=== PATIENT | female | born 1965 | race Caucasian/White ===

== ENCOUNTER 2016-11-12 13:07 | Inpatient (IN) | payer OTHER ==
[2016-11-12 14:01] LABS: MANUAL DIFF NEEDED? NO
--- NOTE | 2016-11-12 14:16 | ED EKG INTERP ---
EKG Interpretation - EKG Time of EKG reading by physician:: 13:40 EKG Read and Signed by:: Sam Adan EKG Interpretation (*Must complete 3 of following elements*): Abnormal ( biatrial enlargement) Rate: 93 Rhythm: nsr [place]: normal [place] Interval: normal Attestation - Scribe Verification/Attestation Scribe:: Elise Barakat Acting as Scribe for:: Sam Adan Scribe documention review:: This chart was documented by a scribe and accurately reflects the service the provider performed and the decisions made by the provider.
[2016-11-12 14:20] LABS: BASO% 0.3 % (0.0-0.8); EOS# 0.21 X1000 (0.0-0.7); EOS% 1.9 % (0.0-10.0); HEMATOCRIT 44.5 % (37.0-47.0); HEMOGLOBIN 14.3 g/dL (12.0-16.0); LYMPH# 2.16 X1000 (1.2-3.4); LYMPH% 19.3 % (20.5-51.1); MCH 30.4 PG (27-31); MCHC 32.1 g/dL (33-37); MCV 94.7 FL (81-99); MONO# 0.71 X1000 (0.11-0.59); MONO% 6.4 % (1.7-9.3); MPV 9.8 FL (7.4-10.4); NEUT% 72.1 % (42.2-75.2); PLT 374 X1000 (130-400)
[2016-11-12 14:30] LABS: AGAP 11; ALKALINE PHOSPHATASE 88 U/L (32-104); BUN 14 mg/dL (8-22); CALCIUM 8.8 mg/dL (8.8-10.2); CHLORIDE 103 mmol/L (98-107); CK PROFILE 68 U/L (24-173); COSMO 281; GOT 15 U/L (10-30); GPT 21 U/L (10-36); MAGNESIUM 1.8 mg/dL (1.5-2.7); SODIUM 141 mmol/L (136-145); TCO2 27 mmol/L (25-35); TOTAL BILIRUBIN 0.37 mg/dL (0.20-1.00); TOTAL PROTEIN 7.4 g/dL (6.3-8.3)
--- NOTE | 2016-11-12 14:35 | Diag Imaging Result Document ---
PROCEDURE NAME: CHEST-2 VIEWS - 11/12/2016 FRONTAL AND LATERAL CHEST, 2 VIEWS: FINDINGS: The lungs are well expanded. The heart is not enlarged. The vessels are not distended. No pneumonia. No pleural effusions. No free air beneath the diaphragm. IMPRESSION: No acute abnormality.
--- NOTE | 2016-11-12 14:51 | EKG Report ---
Test Performed on : 11/12/2016 1:40:38 PM Test Reason : ALL Blood Pressure : / mmHG Vent. Rate : 093 BPM Atrial Rate : 093 BPM P-R Int : 156 ms QRS Dur : 080 ms QT Int : 368 ms P-R-T Axes : 061 071 038 degrees QTc Int : 457 ms Normal sinus rhythm. Biatrial enlargement Abnormal ECG No previous ECGs available Unconfirmed Result
[2016-11-12 15:09] LABS: INR 0.98; PTT 25.7 Seconds (22.0-36.0)
[2016-11-12] MEDS ORDERED: ASPIRIN PO ONE (15:43)
[2016-11-12] MEDS ORDERED: NITROGLYCERIN SL PRN (15:44)
--- NOTE | 2016-11-12 15:51 | PROVIDER DOCUMENTATION ---
HPI-Chest Pain <Elise Barakat - Last Filed: 11/12/16 17:07> <Pietro Balderas - Last Filed: 11/12/16 17:42> - General Chief Complaint: Chest Pain Stated Complaint: CP Time Seen by Provider: 11/12/16 15:41 Allergies/Adverse Reactions: Patient Allergies Allergy/AdvReac Type Severity Reaction Status Date / Time ketorolac tromethamine * Allergy NAUSEA/VOMI Verified 11/12/16 15:49 [From Toradol] TING morphine Allergy NAUSEA/VOMI Verified 11/12/16 15:49 TING ondansetron HCl * Allergy NAUSEA/VOMI Verified 11/12/16 15:49 [From Zofran (as TING hydrochloride)] Sulfa (Sulfonamide Allergy yellowing Verified 11/12/16 15:49 Antibiotics) of eyes and skin Home Medications: Home Medication List Medication Instructions Recorded Confirmed Last Taken Type Naproxen 500 mg PO BID PRN PRN #30 tablet 08/15/16 11/12/16 10/05/16 Rx Methocarbamol [Robaxin] 500 mg PO BID #30 tablet 10/05/16 11/12/16 Unknown Rx Duloxetine [Cymbalta] 30 mg PO DAILY 11/12/16 11/12/16 Unknown History - History of Present Illness-CP Nature of Presenting Problem: This pt presents to the ED with c/o left sided chest pain and neck pain that is "cramping". She reports it started about 12 pm when she was sitting on her couch and lasted about 30 minutes. Denies any SOB with this episode. (Pietro Balderas) Review of Systems - Adult - REVIEW OF SYSTEMS - ADULT Constitutional: denies: chills, fever, fatique Eyes: reports: no symptoms reported Ears, Nose, Mouth & Throat: denies: ear pain, sinus problem, throat pain Cardiovascular: reports: chest pain. denies: irregular heart rate, orthopnea, syncope Respiratory: denies: cough, shortness of breath, wheezing Gastrointestinal: denies: abdominal pain, diarrhea, nausea, vomiting Genitourinary: reports: no symptoms reported Musculoskeletal: reports: no symptoms reported Integumentary: reports: no symptoms reported Neurological: reports: no symptoms reported Psychiatric: reports: no symptoms reported Endocrine: reports: no symptoms reported Hematologic/Lymphatic: reports: no symptoms reported Allergic/Immunologic: reports: no symptoms reported All Other Systems: Reviewed and Negative <Elise Barakat - Last Filed: 11/12/16 17:07> Past History - Adult - PAST MEDICAL HISTORY-ADULT Review of Records: reports: Nursing Assessment Review, Medications Reviewed Cardiovascular: reports: hyperlipidemia Endocrine/Immune: reports: Diabetes - PRIOR SURGERIES/PROCEDURES Surgical/Procedure History: reports: appendectomy, cholecystectomy, hysterectomy , tonsillectomy - IMMUNIZATION STATUS Childhood Immunizations: See Nurse Assessment Flu Vaccine: See Nurse Assessment - SOCIAL HISTORY Smoking: less than 1 pack/day Provider spent 3-5 mins advising pt. on dangers of tobacco.: Discussed manners to quit use, and f/u contacts for add'l counseling. Substance Use: none/never <Elise Barakat - Last Filed: 11/12/16 17:07> - PAST MEDICAL HISTORY-ADULT Major Childhood Illnesses: reports: denies history Cardiovascular: reports: denies history Respiratory: reports: denies history Gastrointestinal: reports: denies history Obstetrical/Gynecological: reports: denies history Genitourinary: reports: denies history Musculoskeletal: reports: denies history Neurological: reports: denies history Endocrine/Immune: reports: denies history Other Conditions: reports: denies history - PRIOR SURGERIES/PROCEDURES Surgical/Procedure History: reports: appendectomy, cholecystectomy, tonsillectomy - IMMUNIZATION STATUS Childhood Immunizations: See Nurse Assessment Flu Vaccine: See Nurse Assessment - FAMILY HISTORY Family History: reviewed, not pertinent <Pietro Balderas - Last Filed: 11/12/16 17:42> Physical Exam-General - PHYSICAL EXAM-ADULT Initial Vital Signs Reviewed: Yes - CONSTITUTIONAL General Appearance: appears well, alert, no apparent distress - EYES Eyes: PERRL/EOMI - HEAD, EARS, NOSE, MOUTH & THROAT HENMT: moist mucous membranes, normal ENT inspection, TMs normal, pharynx normal - RESPIRATORY Respiratory: chest non-tender (nonreproducable pain), lungs clear, normal breath sounds, no pleuratic chest pain, no respiratory distress - CARDIOVASCULAR Cardiovascular: regular rate, rhythm, no edema, no gallop, no JVD, no murmur - GASTROINTESTINAL (ABDOMEN) Abdominal Exam: normal bowel sounds, non tender, soft, no organomegaly, no pulsatile mass - MUSCULOSKELETAL Extremity: normal range of motion, non-tender - SKIN Integumentary: normal color, normal turgor, warm/dry - PSYCHIATRIC Psych/Mental Status: normal mood/affect, normal thought content, normal thought process, oriented x 3 <Elise Barakat - Last Filed: 11/12/16 17:07> Progress <Elise Barakat - Last Filed: 11/12/16 17:07> - XRAY 1 XRAY Study: Chest XRAY Interpretation: nad - CONSULTS/PCP/HOSPITALIST Notification #1 *Consult/PCP/Hospitalist*: Dr. Sarabia Time Discussed: 17:42 Consult Disposition: Admit <AndreyPietro - Last Filed: 11/12/16 17:42> - PLAN OF CARE/RESULTS Progress/Plan/Lab Results: Orders Category Date Time Status CHEST-2 VIEWS [RAD] Stat Exams 11/12/16 13:44 Completed CBC WITH ELECTRONIC DIFF [HEME] Stat Lab 11/12/16 13:49 Completed CK PROFILE [SP CHEM] Stat Lab 11/12/16 13:49 Completed CK PROFILE [SP CHEM] Stat Lab 11/12/16 16:06 Received COMPREHENSIVE METABOLIC PANEL [CHEM] Stat Lab 11/12/16 13:49 Completed D-DIMER [CHEM] Stat Lab 11/12/16 13:49 Completed MAGNESIUM [CHEM] Stat Lab 11/12/16 13:49 Completed PRO B-NATRIURETIC PEPTIDE Stat Lab 11/12/16 13:49 Completed PROTIME WITH INR [COAG] Stat Lab 11/12/16 13:49 Completed PTT [COAG] Stat Lab 11/12/16 13:49 Completed TROPONIN T Stat Lab 11/12/16 13:49 Completed TROPONIN T Stat Lab 11/12/16 16:06 Received Aspirin Med 11/12/16 15:43 Discontinued 325 mg PO NOW ONE Nitroglycerin Sl [Nitroglycerin] Med 11/12/16 15:44 Active 0.4 mg SL Q5M PRN PRN EKG [EKG] Stat Ther 11/12/16 13:44 Draft EKG [EKG] Stat Ther 11/12/16 15:43 Ordered Vital Signs - 24 hr 11/12/16 13:42 Temperature 98.4 F Pulse Rate 90 Respiratory 20 Rate Blood Pressure 123/81 O2 Sat by Pulse 100 Oximetry Laboratory Tests 11/12/16 11/12/16 11/12/16 13:49 13:49 13:49 WBC 11.17 H RBC 4.70 Hgb 14.3 Hct 44.5 MCV 94.7 MCH 30.4 MCHC 32.1 L RDW Std Deviation 15.0 H Plt Count 374 MPV 9.8 Neut % (Auto) 72.1 Lymph % (Auto) 19.3 L [place] % (Auto) 6.4 Eos % (Auto) 1.9 Baso % (Auto) 0.3 Neut # (Auto) 8.06 H Lymph # (Auto) 2.16 [place] # (Auto) 0.71 H Eos # (Auto) 0.21 Baso # (Auto) 0.03 PT INR PTT (Actin FS) D-Dimer 0.43 Sodium 141 Potassium 4.0 Chloride 103 Carbon Dioxide 27 Anion Gap 11 BUN 14 Creatinine 0.8 Estimated GFR/1.73 m2 > 60 BUN/Creatinine Ratio 18 Glucose 93 Calculated Osmolality 281 Calcium 8.8 Magnesium 1.8 Total Bilirubin 0.37 AST 15 ALT 21 Alkaline Phosphatase 88 Creatine Kinase 68 Troponin T Sfz-P-Gcrylgtuqrr Pept Total Protein 7.4 Albumin 4.0 Globulin 3.4 Albumin/Globulin Ratio 1.2 11/12/16 11/12/16 11/12/16 13:49 13:49 13:49 WBC RBC Hgb Hct MCV MCH MCHC RDW Std Deviation Plt Count MPV Neut % (Auto) Lymph % (Auto) [place] % (Auto) Eos % (Auto) Baso % (Auto) Neut # (Auto) Lymph # (Auto) [place] # (Auto) Eos # (Auto) Baso # (Auto) PT 10.0 INR 0.98 PTT (Actin FS) 25.7 D-Dimer Sodium Potassium Chloride Carbon Dioxide Anion Gap BUN Creatinine Estimated GFR/1.73 m2 BUN/Creatinine Ratio Glucose Calculated Osmolality Calcium Magnesium Total Bilirubin AST ALT Alkaline Phosphatase Creatine Kinase Troponin T < 0.010 Gju-S-Pxhzngczxyi Pept 91 Total Protein Albumin Globulin Albumin/Globulin Ratio Laboratory Tests 11/12/16 11/12/16 11/12/16 13:49 13:49 13:49 WBC 11.17 H RBC 4.70 Hgb 14.3 Hct 44.5 MCV 94.7 MCH 30.4 MCHC 32.1 L RDW Std Deviation 15.0 H Plt Count 374 MPV 9.8 Neut % (Auto) 72.1 Lymph % (Auto) 19.3 L [place] % (Auto) 6.4 Eos % (Auto) 1.9 Baso % (Auto) 0.3 Neut # (Auto) 8.06 H Lymph # (Auto) 2.16 [place] # (Auto) 0.71 H Eos # (Auto) 0.21 Baso # (Auto) 0.03 PT INR PTT (Actin FS) D-Dimer 0.43 Sodium 141 Potassium 4.0 Chloride 103 Carbon Dioxide 27 Anion Gap 11 BUN 14 Creatinine 0.8 Estimated GFR/1.73 m2 > 60 BUN/Creatinine Ratio 18 Glucose 93 Calculated Osmolality 281 Calcium 8.8 Magnesium 1.8 Total Bilirubin 0.37 AST 15 ALT 21 Alkaline Phosphatase 88 Creatine Kinase 68 Troponin T Xih-E-Gdniatbsoid Pept Total Protein 7.4 Albumin 4.0 Globulin 3.4 Albumin/Globulin Ratio 1.2 11/12/16 11/12/16 11/12/16 13:49 13:49 13:49 WBC RBC Hgb Hct MCV MCH MCHC RDW Std Deviation Plt Count MPV Neut % (Auto) Lymph % (Auto) [place] % (Auto) Eos % (Auto) Baso % (Auto) Neut # (Auto) Lymph # (Auto) [place] # (Auto) Eos # (Auto) Baso # (Auto) PT 10.0 INR 0.98 PTT (Actin FS) 25.7 D-Dimer Sodium Potassium Chloride Carbon Dioxide Anion Gap BUN Creatinine Estimated GFR/1.73 m2 BUN/Creatinine Ratio Glucose Calculated Osmolality Calcium Magnesium Total Bilirubin AST ALT Alkaline Phosphatase Creatine Kinase Troponin T < 0.010 Owg-M-Ilwdswjpsbv Pept 91 Total Protein Albumin Globulin Albumin/Globulin Ratio 11/12/16 11/12/16 16:06 16:06 WBC RBC Hgb Hct MCV MCH MCHC RDW Std Deviation Plt Count MPV Neut % (Auto) Lymph % (Auto) [place] % (Auto) Eos % (Auto) Baso % (Auto) Neut # (Auto) Lymph # (Auto) [place] # (Auto) Eos # (Auto) Baso # (Auto) PT INR PTT (Actin FS) D-Dimer Sodium Potassium Chloride Carbon Dioxide Anion Gap BUN Creatinine Estimated GFR/1.73 m2 BUN/Creatinine Ratio Glucose Calculated Osmolality Calcium Magnesium Total Bilirubin AST ALT Alkaline Phosphatase Creatine Kinase 65 Troponin T < 0.010 Gku-D-Ibhkwlasaah Pept Total Protein Albumin Globulin Albumin/Globulin Ratio (Elise Barakat) Laboratory Tests 11/12/16 11/12/1617 13:49 13:49 13:49 WBC 11.17 H RBC 4.70 Hgb 14.3 Hct 44.5 MCV 94.7 MCH 30.4 MCHC 32.1 L RDW Std Deviation 15.0 H Plt Count 374 MPV 9.8 Neut % (Auto) 72.1 Lymph % (Auto) 19.3 L [place] % (Auto) 6.4 Eos % (Auto) 1.9 Baso % (Auto) 0.3 Neut # (Auto) 8.06 H Lymph # (Auto) 2.16 [place] # (Auto) 0.71 H Eos # (Auto) 0.21 Baso # (Auto) 0.03 PT INR PTT (Actin FS) D-Dimer 0.43 Sodium 141 Potassium 4.0 Chloride 103 Carbon Dioxide 27 Anion Gap 11 BUN 14 Creatinine 0.8 Estimated GFR/1.73 m2 > 60 BUN/Creatinine Ratio 18 Glucose 93 Calculated Osmolality 281 Calcium 8.8 Magnesium 1.8 Total Bilirubin 0.37 AST 15 ALT 21 Alkaline Phosphatase 88 Creatine Kinase 68 Troponin T Ase-C-Lpeklxjfjib Pept Total Protein 7.4 Albumin 4.0 Globulin 3.4 Albumin/Globulin Ratio 1.2 11/12/16 11/12/16 11/12/16 13:49 13:49 13:49 WBC RBC Hgb Hct MCV MCH MCHC RDW Std Deviation Plt Count MPV Neut % (Auto) Lymph % (Auto) [place] % (Auto) Eos % (Auto) Baso % (Auto) Neut # (Auto) Lymph # (Auto) [place] # (Auto) Eos # (Auto) Baso # (Auto) PT 10.0 INR 0.98 PTT (Actin FS) 25.7 D-Dimer Sodium Potassium Chloride Carbon Dioxide Anion Gap BUN Creatinine Estimated GFR/1.73 m2 BUN/Creatinine Ratio Glucose Calculated Osmolality Calcium Magnesium Total Bilirubin AST ALT Alkaline Phosphatase Creatine Kinase Troponin T < 0.010 Gub-D-Hwqkwijduqz Pept 91 Total Protein Albumin Globulin Albumin/Globulin Ratio 11/12/16 11/12/16 16:06 16:06 WBC RBC Hgb Hct MCV MCH MCHC RDW Std Deviation Plt Count MPV Neut % (Auto) Lymph % (Auto) [place] % (Auto) Eos % (Auto) Baso % (Auto) Neut # (Auto) Lymph # (Auto) [place] # (Auto) Eos # (Auto) Baso # (Auto) PT INR PTT (Actin FS) D-Dimer Sodium Potassium Chloride Carbon Dioxide Anion Gap BUN Creatinine Estimated GFR/1.73 m2 BUN/Creatinine Ratio Glucose Calculated Osmolality Calcium Magnesium Total Bilirubin AST ALT Alkaline Phosphatase Creatine Kinase 65 Troponin T < 0.010 Mvk-G-Pycghhtcykm Pept Total Protein Albumin Globulin Albumin/Globulin Ratio Orders Category Date Time Status CHEST-2 VIEWS [RAD] Stat Exams 11/12/16 13:44 Completed CBC WITH ELECTRONIC DIFF [HEME] Stat Lab 11/12/16 13:49 Completed CK PROFILE [SP CHEM] Stat Lab 11/12/16 13:49 Completed CK PROFILE [SP CHEM] Stat Lab 11/12/16 16:06 Completed COMPREHENSIVE METABOLIC PANEL [CHEM] Stat Lab 11/12/16 13:49 Completed D-DIMER [CHEM] Stat Lab 11/12/16 13:49 Completed MAGNESIUM [CHEM] Stat Lab 11/12/16 13:49 Completed PRO B-NATRIURETIC PEPTIDE Stat Lab 11/12/16 13:49 Completed PROTIME WITH INR [COAG] Stat Lab 11/12/16 13:49 Completed PTT [COAG] Stat Lab 11/12/16 13:49 Completed TROPONIN T Stat Lab 11/12/16 13:49 Completed TROPONIN T Stat Lab 11/12/16 16:06 Completed Aspirin Med 11/12/16 15:43 Discontinued 325 mg PO NOW ONE Nitroglycerin Sl [Nitroglycerin] Med 11/12/16 15:44 Active 0.4 mg SL Q5M PRN PRN EKG [EKG] Stat Ther 11/12/16 13:44 Draft EKG [EKG] Stat Ther 11/12/16 15:43 Ordered Vital Signs Temp Pulse Resp BP Pulse Ox 11/12/16 17:26 90 16 127/84 95 11/12/16 13:42 98.4 F 90 20 123/81 100 ketorolac tromethamine * [From Toradol] Allergy (Verified 11/12/16 15:49) NAUSEA/VOMITING morphine Allergy (Verified 11/12/16 15:49) NAUSEA/VOMITING ondansetron HCl * [From Zofran (as hydrochloride)] Allergy (Verified 11/12/16 15 :49) NAUSEA/VOMITING Sulfa (Sulfonamide Antibiotics) Allergy (Verified 11/12/16 15:49) yellowing of eyes and skin Naproxen 500 mg PO BID PRN PRN #30 tablet 08/15/16 Methocarbamol [Robaxin] 500 mg PO BID #30 tablet 10/05/16 Duloxetine [Cymbalta] 30 mg PO DAILY 11/12/16 Laboratory 11/12/16 11/12/16 11/12/16 16:06 16:06 13:49 WBC RBC Hgb Hct MCV MCH MCHC RDW Std Deviation Plt Count MPV Neut % (Auto) Lymph % (Auto) [place] % (Auto) Eos % (Auto) Baso % (Auto) Neut # (Auto) Lymph # (Auto) [place] # (Auto) Eos # (Auto) Baso # (Auto) PT INR PTT (Actin FS) D-Dimer Sodium Potassium Chloride Carbon Dioxide Anion Gap BUN Creatinine Estimated GFR/1.73 m2 BUN/Creatinine Ratio Glucose Calculated Osmolality Calcium Magnesium Total Bilirubin AST ALT Alkaline Phosphatase Creatine Kinase 65 Troponin T < 0.010 < 0.010 Fsw-O-Azxvuamtydq Pept Total Protein Albumin Globulin Albumin/Globulin Ratio 11/12/16 11/12/16 11/12/16 13:49 13:49 13:49 WBC RBC Hgb Hct MCV MCH MCHC RDW Std Deviation Plt Count MPV Neut % (Auto) Lymph % (Auto) [place] % (Auto) Eos % (Auto) Baso % (Auto) Neut # (Auto) Lymph # (Auto) [place] # (Auto) Eos # (Auto) Baso # (Auto) PT 10.0 INR 0.98 PTT (Actin FS) 25.7 D-Dimer 0.43 Sodium Potassium Chloride Carbon Dioxide Anion Gap BUN Creatinine Estimated GFR/1.73 m2 BUN/Creatinine Ratio Glucose Calculated Osmolality Calcium Magnesium Total Bilirubin AST ALT Alkaline Phosphatase Creatine Kinase Troponin T Hwn-O-Lrpwxeurzah Pept 91 Total Protein Albumin Globulin Albumin/Globulin Ratio 11/12/16 11/12/16 13:49 13:49 WBC 11.17 H RBC 4.70 Hgb 14.3 Hct 44.5 MCV 94.7 MCH 30.4 MCHC 32.1 L RDW Std Deviation 15.0 H Plt Count 374 MPV 9.8 Neut % (Auto) 72.1 Lymph % (Auto) 19.3 L [place] % (Auto) 6.4 Eos % (Auto) 1.9 Baso % (Auto) 0.3 Neut # (Auto) 8.06 H Lymph # (Auto) 2.16 [place] # (Auto) 0.71 H Eos # (Auto) 0.21 Baso # (Auto) 0.03 PT INR PTT (Actin FS) D-Dimer Sodium 141 Potassium 4.0 Chloride 103 Carbon Dioxide 27 Anion Gap 11 BUN 14 Creatinine 0.8 Estimated GFR/1.73 m2 > 60 BUN/Creatinine Ratio 18 Glucose 93 Calculated Osmolality 281 Calcium 8.8 Magnesium 1.8 Total Bilirubin 0.37 AST 15 ALT 21 Alkaline Phosphatase 88 Creatine Kinase 68 Troponin T Ino-S-Qisdxadvmmw Pept Total Protein 7.4 Albumin 4.0 Globulin 3.4 Albumin/Globulin Ratio 1.2 Pt's pain has improved but is still having some dull pain. Wild admit to hospitalist service for cp r/o. (Pietro Balderas) Departure <Elise Barakat - Last Filed: 11/12/16 17:07> - Departure Time of Disposition Order: 17:42 Certified Medical Emergency: Emergent <Pietro Balderas - Last Filed: 11/12/16 17:42> - Departure DIAGNOSIS: Chest pain at rest Disposition: ADMITTED INPATIENT 09 Condition: Stable Attestation - Scribe Verification/Attestation Scribe:: Elise Barakat Acting as Scribe for:: Pietro Balderas Scribe documention review:: This chart was documented by a scribe and accurately reflects the service the provider performed and the decisions made by the provider. <Elise Barakat - Last Filed: 11/12/16 17:07> - Physician/ LOI Attestation Patient care was provided by Advanced Practice Provider:: Yes Advanced Practice Provider:: Pietro Balderas Advanced Practice Provider documentation review:: The Mid-level provider documentation, treatment plan and medical decision making was reviewed by the physician who agrees with all treatment and medical decision making by the MLP. <Pietro Balderas - Last Filed: 11/12/16 17:42> Physician Attestation
--- NOTE | 2016-11-12 16:19 | ED EKG INTERP ---
EKG Interpretation - EKG Time of EKG reading by physician:: 15:57 EKG Read and Signed by:: Sam Adan EKG Interpretation (*Must complete 3 of following elements*): Abnormal ( biatrial enlargement) Rate: 89 Rhythm: nsr [place]: normal Attestation - Scribe Verification/Attestation Scribe:: Elise Barakat Acting as Scribe for:: Sam Adan Scribe documention review:: This chart was documented by a scribe and accurately reflects the service the provider performed and the decisions made by the provider.
[2016-11-12] MEDS ORDERED: NORCO-5 PO ONE (18:00)
[2016-11-12] MEDS ORDERED: PHENERGAN PO ONE (18:00)
[2016-11-12] MEDS ORDERED: ZOFRAN IV PRN (18:41)
[2016-11-12] MEDS ORDERED: NORCO-7.5 PO PRN (18:41)
--- NOTE | 2016-11-12 19:44 | HISTORY AND PHYSICAL ---
PRIMARY CARE PHYSICIAN: Dr. Carolina. PRESENTING COMPLAINT: Chest pain. HISTORY OF PRESENTING COMPLAINT: Ms. Perea is a 51-year-old, female with a history of diabetes, hypertension, dyslipidemia and 34-nnux-xhyw history of smoking. She presented with an acute onset of chest pain since this morning at about 11: 48. According to Ms. Perea, she was playing at home with her grandkids just lying down and she just felt this sharp pain coming down under her left breast squeezing in nature and posteriorly had her left arm numb. That went on for about 20 minutes and it subsided. She called her family members who decided to bring her to the emergency department. Upon presentation patient was evaluated. Initial blood pressure was 123/81 which is documented. Other vitals were normal. We were consulted to evaluate patient because of chest pain. PAST MEDICAL HISTORY: 1. Diabetes mellitus. 2. Hypertension. 3. Suspected sleep apnea. 4. Dyslipidemia. FAMILY HISTORY: Positive for strokes in mother and diabetes. ALLERGIES: Ketorolac, morphine and ondansetron. PAST SURGICAL HISTORY: 1. Cholecystectomy. 2. Multiple lithotripsies. 3. Hysterectomy with bilateral oophorectomy. 4. Appendectomy. 5. Multiple knee surgeries. SOCIAL HISTORY: The patient is and lives with her here in [place]. She has 4 kids. She drinks occasionally but has a 31-qrcr-xpdn history, but for the past 1 year she has been smoking just about half-pack a day. REVIEW OF SYSTEMS: A 14 point review of system conducted with the patient is negative. Specifically patient denies any shortness of breath. No vomiting. No epigastric pain. No abdominal pain. No diarrhea. No urine symptoms. No cough. PHYSICAL EXAMINATION: VITAL SIGNS: Blood pressure 127/84, pulse of 90, respiration is 14, temperature is 98.4 degrees. GENERAL: Ms. Perea is a 51-year-old, female. She is in bed. She is morbidly obese with BMI of 45.9. She was not in any cardiopulmonary distress. HEENT: Mucosa was pink and moist. Anicteric. Acyanotic. Head is normocephalic and atraumatic. NECK: Supple, slightly short and thick, but no JVD. CHEST: Good air entry bilateral. There is no crepitations, no rhonchi and no accessory muscle use. CARDIOVASCULAR: Regular rate and rhythm. No murmurs, no rubs, no gallops. ABDOMEN: Soft, nontender, it is distended. Bowel sounds are present. No hepatosplenomegaly. EXTREMITIES: No pedal edema. Distal pulses were present. CENTRAL NERVOUS SYSTEM: Patient is alert, oriented x4. Executive function seems to be intact. Power is 5/5 in upper and lower extremities. Bilateral sensation is intact. Cranial nerves 2-12 have been grossly examined and are unremarkable. PSYCHIATRIC: Patient is very cooperative and has very good insight and judgment. LABORATORY DATA: WBC is 11.17, hemoglobin is 14.3, platelet count of 375,000. Chemistry: Sodium is 141, potassium 4.0, chloride is 103, bicarbonate is 27, glucose is 93. Troponins 2 times have been negative. Chest x-ray done shows no acute abnormality. EKG showed normal sinus rhythm, some biatrial enlargement but no acute ST- segment abnormalities and no obvious T-wave abnormalities. ASSESSMENT: Ms. Perea is a 51-year-old, very obese, female with multiple comorbidities who presented with acute onset of chest pain. She is going to be admitted for further cardiac stratification. 1. Chest pain of acute onset. With the risk factors involved it sounds like this could potentially be unstable angina (acute coronary syndrome). We will, therefore , admit the patient in [facility], trend troponins, repeat the EKG for tomorrow morning, start the patient on aspirin, statin, low-dose beta merlyn if the blood pressure tolerates, Lovenox for anticoagulation, do an echocardiogram and consult cardiology for further cardiac risk stratification. 2. Tobacco abuse. Patient has more than a 69-xdwm-ukbs history. She has been counseled. 3. Morbid obesity. BMI of 45.9 noted. Patient has been advised. 4. Severe bilateral osteoarthritis status post multiple orthopedic interventions. 5. Diabetes mellitus. 6. Dyslipidemia. 7. Suspicion for obstructive sleep apnea. PLAN: 1. Patient seems to be stable. We are going to admit her to [facility] and institute unstable angina protocol, consult Cardiology, trend her troponins, repeat an EKG, do an echo tomorrow morning and we will give further recommendations during the hospital course. 2. The patient refers to snore hard during sleep . We are going to put her on BiPAP p.r.n. at night and she has been advised to follow up with a billboard poster helper after discharge for sleep studies and adequate evaluation. MTDD
[2016-11-12] MEDS ORDERED: DILAUDID IV PRN (19:59)
[2016-11-12] MEDS: LIPITOR PO SCH (20:18)
[2016-11-12] MEDS: COREG PO SCH (20:18)
[2016-11-12] MEDS ORDERED: LOVENOX SUBQ SCH (22:30)
[2016-11-13] MEDS ORDERED: PNEUMOVAX 23 IM ONE (01:10)
[2016-11-13 05:45] LABS: MANUAL DIFF NEEDED? NO
[2016-11-13 05:53] LABS: BASO% 0.5 % (0.0-0.8); EOS# 0.28 X1000 (0.0-0.7); EOS% 2.8 % (0.0-10.0); HEMATOCRIT 43.4 % (37.0-47.0); HEMOGLOBIN 13.8 g/dL (12.0-16.0); IMM GRAN# 0.03 X1000 (0.0-0.04); IMM GRAN% 0.3 % (0.0-0.5); LYMPH# 2.22 X1000 (1.2-3.4); LYMPH% 22.4 % (20.5-51.1); MCH 30.2 PG (27-31); MCHC 31.8 g/dL (33-37); MONO# 0.66 X1000 (0.11-0.59); MONO% 6.7 % (1.7-9.3); MPV 9.9 FL (7.4-10.4); NEUT% 67.3 % (42.2-75.2); PLT 343 X1000 (130-400); RBC 4.57 XMIL (4.2-5.4)
[2016-11-13 06:01] LABS: INR 1.01; PROTIME 10.3 Seconds (9.2-11.7)
[2016-11-13 06:23] LABS: AGAP 14; ALBUMIN 3.9 g/dL (3.5-5.0); ALKALINE PHOSPHATASE 85 U/L (32-104); BUN 17 mg/dL (8-22); CALCIUM 9.4 mg/dL (8.8-10.2); CHLORIDE 101 mmol/L (98-107); COSMO 285; GOT 18 U/L (10-30); GPT 25 U/L (10-36); MAGNESIUM 1.8 mg/dL (1.5-2.7); POTASSIUM 4.4 mmol/L (3.5-5.1); SODIUM 142 mmol/L (136-145); TCO2 27 mmol/L (25-35); TOTAL PROTEIN 6.4 g/dL (6.3-8.3)
[2016-11-13] MEDS ORDERED: PRILOSEC PO SCH (07:00)
[2016-11-13 08:07] VITALS: BP 96/58
--- NOTE | 2016-11-13 08:45 | Diag Imaging Result Document ---
PROCEDURE NAME: CHEST-PORTABLE - 11/13/2016 PORTABLE CHEST: COMPARISON: 11/12/2016. FINDINGS: Heart size is within normal limits. There is slight prominence of central vascular markings. There is no consolidation, substantial pleural effusion, or pneumothorax identified. IMPRESSION: Slight prominence of central vascular markings.
[2016-11-13] MEDS: COREG PO SCH (08:46)
[2016-11-13] MEDS: LIPITOR PO SCH (08:46)
[2016-11-13] MEDS ORDERED: CYMBALTA PO SCH (09:00)
[2016-11-13] MEDS ORDERED: VITAMIN D PO SCH (09:30)
[2016-11-13] MEDS ORDERED: SYNTHROID PO SCH (09:30)
--- NOTE | 2016-11-13 13:48 | PROGRESS NOTE ---
DATE: 11/13/2016 Today Ms. Perea referred to be doing relatively fine. According to her, the chest pain has significantly improved overnight. Did have some headaches after she got a dose of morphine. OBJECTIVE: Vital signs: Blood pressure is 96/58, pulse went down to 50 but currently on the monitor it is about 94. Respirations 20, temperature 98.3 degrees. General: Ms. Perea is a 51- year-old female. She is in bed, not in any distress. Mucosa is pink and moist. Anicteric. Acyanotic. Neck: Supple. Chest: Good air entry bilateral. No crepitations. No rhonchi. Cardiovascular: Regular rate and rhythm. No murmurs, no rubs. No gallops. Abdomen: Soft, nontender. There is an old infraumbilical surgical scar. Extremities: No pedal edema. SPORTS COORDINATOR: Patient is alert and oriented x4. There is no focal neurological deficit. LABORATORY DATA: CBC is reviewed. Completely unremarkable. Chemistry is also reviewed, completely normal. TSH is 32.46 which is very abnormal and C. reactive high sensitivity is 1.8 which is high. ASSESSMENT: 1. Chest pain of acute onset, possible unstable angina. The pain is remarkably better. Tele monitoring has not shown any abnormality and troponins 3 times have been completely normal. Patient continues to be on aspirin, statin, beta merlyn, and anticoagulation and we still pending. Echocardiogram and cardiology evaluation. Patient has high sensitivity CRP elevated which in the context of all the risk factors that she has makes her at least a moderate to high risk for coronary artery disease and will be pending cardiology evaluation. 2. Tobacco abuse. Patient has been counseled. 3. Morbid obesity. 4. Suspicion of obstructive sleep apnea. Patient will be using a CPAP at night and will follow up with a electric hoist operator when discharged. 5. Hypothyroidism with very elevated TSH consistent with inadequate thyroid supplementation. According to the patient she was actually on 112 of levothyroxine about a year ago but because of insurance issues and financial constraints, she was not able to follow with her physician and she just started taking 25 mcg of levothyroxine about a month ago. We are going to increase the levothyroxine to 100 mcg daily and patient has been advised to repeat the TSH in about 2 weeks with his PCP. 6. Restless leg syndrome noted.
--- NOTE | 2016-11-15 10:57 | EKG Report ---
Test Performed on : 11/12/2016 3:57:40 PM Test Reason : repeat Blood Pressure : / mmHG Vent. Rate : 089 BPM Atrial Rate : 089 BPM P-R Int : 152 ms QRS Dur : 080 ms QT Int : 378 ms P-R-T Axes : 061 072 045 degrees QTc Int : 459 ms Normal sinus rhythm. Biatrial enlargement Abnormal ECG When compared with ECG of 12-NOV-2016 13:40, (Unconfirmed) No significant change was found Unconfirmed Result
== END 2016-11-13 10:30 | disposition left against medical advice (07) | DRG 311 ==
LOC: ED 13:07 → 3S 19:37
PROVIDERS: ATTEND Internal Medicine
DX: I20.0 Unstable angina (principal); Z68.42 Body mass index [BMI] 45.0-49.9, adult; I10 Essential (primary) hypertension; E66.01 Morbid (severe) obesity due to excess calories; E11.9 Type 2 diabetes mellitus without complications; E78.5 Hyperlipidemia, unspecified; E03.9 Hypothyroidism, unspecified; G25.81 Restless legs syndrome; G47.33 Obstructive sleep apnea (adult) (pediatric); M19.90 Unspecified osteoarthritis, unspecified site; F17.210 Nicotine dependence, cigarettes, uncomplicated; Z79.899 Other long term (current) drug therapy; Z79.84 Long term (current) use of oral hypoglycemic drugs; Z82.3 Family history of stroke; Z83.3 Family history of diabetes mellitus
CPT/HCPCS: 36415; 71010; 71020; 80053; 82550; 82948; 83735; 83880; 84443; 84484; 85025; 85379; 85610; 85730; 86141; 93005; 94761; 99285; J1170; J1650

== ENCOUNTER 2016-12-01 23:47 | Observation (INO) ==
[2016-12-02] MEDS ORDERED: NS 1,000 ML IV ONE ×2 (00:42→03:06)
[2016-12-02] MEDS ORDERED: ZOFRAN IV ONE (00:42)
--- NOTE | 2016-12-02 00:42 | PROVIDER DOCUMENTATION ---
[id number] Abuse/Overdose - General Source: patient - History of Present Illness-Drug/Alcohol Psychiatric Complaints: reports: suicidal ideation Any injuries associated with this episode of intoxication?: No Similar Symptoms Previously?: No Recently seen or treated by another doctor?: No <Brandi Alvarado - Last Filed: 12/02/16 02:25> <Mykel George I - Last Filed: 12/02/16 02:27> - General Chief Complaint: Overdose Stated Complaint: overdose on buspar Time Seen by Provider: 12/02/16 00:25 Allergies/Adverse Reactions: Allergies Allergy/AdvReac Type Severity Reaction Status Date / Time ketorolac tromethamine * Allergy NAUSEA/VOMI Verified 12/02/16 01:45 [From Toradol] TING morphine Allergy NAUSEA/VOMI Verified 12/02/16 01:45 TING ondansetron HCl * Allergy NAUSEA/VOMI Verified 12/02/16 01:45 [From Zofran (as TING hydrochloride)] Sulfa (Sulfonamide Allergy yellowing Verified 12/02/16 01:45 Antibiotics) of eyes and skin Home Medications: Home Medication List Medication Instructions Recorded Confirmed Last Taken Type Methocarbamol [Robaxin] 500 mg PO BID #30 tablet 10/05/16 12/02/16 12/01/16 08: 00 Rx Duloxetine [Cymbalta] 30 mg PO QAM 11/12/16 12/02/16 12/01/16 History ATORVAstatin [Lipitor] 1 tab PO QHS 11/13/16 12/02/16 12/01/16 History Buspirone [Buspar] 7.5 mg PO BID 11/13/16 12/02/16 12/01/16 History Ergocalciferol (Vitamin D2) 50,000 units PO Q7D 11/13/16 12/02/16 10/30/16 History [Vitamin D2] 5,0000 Units Levothyroxine [Synthroid] 50 mcg PO QAM 11/13/16 12/02/16 12/01/16 08:00 History Metformin [Glucophage] 1 tab PO DAILY 11/13/16 12/02/16 12/01/16 History Ropinirole [Requip] 1 mg PO TID 11/13/16 12/02/16 12/01/16 08:00 History Dexbrompheniramin/Phenylephrin 1 each PO Q6HR 12/02/16 12/02/16 Unknown History [Ala-Hist PE Tablet] Diclofenac Sodium 75 mg PO BID 12/02/16 12/02/16 Unknown History Gabapentin 300 mg PO TID 12/02/16 12/02/16 12/01/16 08:00 History - History of Present Illness-Drug/Alcohol Nature of Presenting Problem: 51 year old F presents to the ED with a cc of an overdose. PT states "I am just tired of being hurt. My left me for an old lady. I don't want to be here anymore." PT states that she took between 30-90 7.5 mg of Buspar. (Brandi Alvarado) Review of Systems - Adult - REVIEW OF SYSTEMS - ADULT Constitutional: reports: no symptoms reported Eyes: reports: no symptoms reported Ears, Nose, Mouth & Throat: reports: no symptoms reported Cardiovascular: reports: no symptoms reported Respiratory: reports: no symptoms reported Gastrointestinal: reports: no symptoms reported Genitourinary: reports: no symptoms reported Musculoskeletal: denies: muscle aches, muscle weakness Integumentary: denies: skin sores/ulcer, skin thickening Neurological: reports: no symptoms reported Psychiatric: reports: suicidal thoughts. denies: depression Endocrine: reports: no symptoms reported Hematologic/Lymphatic: reports: no symptoms reported Allergic/Immunologic: reports: no symptoms reported All Other Systems: Reviewed and Negative <Brandi Alvarado - Last Filed: 12/02/16 02:25> Past History - Adult - PAST MEDICAL HISTORY-ADULT Review of Records: reports: Nursing Assessment Review, Medications Reviewed Major Childhood Illnesses: reports: denies history Cardiovascular: reports: denies history Respiratory: reports: denies history Gastrointestinal: reports: denies history Obstetrical/Gynecological: reports: denies history Genitourinary: reports: denies history Musculoskeletal: reports: denies history Neurological: reports: denies history Endocrine/Immune: reports: denies history Other Conditions: reports: denies history - PRIOR SURGERIES/PROCEDURES Surgical/Procedure History: reports: appendectomy, cholecystectomy, tonsillectomy - IMMUNIZATION STATUS Childhood Immunizations: See Nurse Assessment Flu Vaccine: See Nurse Assessment - FAMILY HISTORY Family History: reviewed, not pertinent - SOCIAL HISTORY Smoking: cigarettes Provider spent 3-5 mins advising pt. on dangers of tobacco.: Discussed manners to quit use, and f/u contacts for add'l counseling. Substance Use: none/never Alcohol Use Frequency: rarely <Brandi Alvarado - Last Filed: 12/02/16 02:25> Physical Exam-General - CONSTITUTIONAL General Appearance: lethargic - RESPIRATORY Respiratory: chest non-tender, lungs clear, normal breath sounds - CARDIOVASCULAR Cardiovascular: normal peripheral pulses, regular rate, rhythm, no edema - MUSCULOSKELETAL Extremity: normal inspection - SKIN Integumentary: normal color, normal turgor, warm/dry - PSYCHIATRIC Psych/Mental Status: other (lethargic) <ChristianoBrandi - Last Filed: 12/02/16 02:25> Progress - EKG 1 Time of EKG reading by physician:: 00:10 EKG Read and Signed by:: Mykel George EKG Interpretation (*Must complete 3 of following elements*): Abnormal Rate: 102 Rhythm: sinus tachycardia Napoleon: normal Comments: bilateral enlargement - CONSULTS/PCP/HOSPITALIST Notification #1 *Consult/PCP/Hospitalist*: Dr. Solis(hospitalist) Time Discussed: 02:25 Consult Disposition: Will see in ED, Admit <ChristinaoBrandi echeverria - Last Filed: 12/02/16 02:25> Departure <ChristianoBrandi - Last Filed: 12/02/16 02:25> - Departure Time of Disposition Order: 02:27 Certified Medical Emergency: Emergent <Mykel George I - Last Filed: 12/02/16 02:27> - Departure DIAGNOSIS: Overdose, Suicide attempt by drug ingestion Disposition: ADMITTED INPATIENT 09 Condition: Stable Attestation - Scribe Verification/Attestation Scribe:: Brandi Alvarado Acting as Scribe for:: Mykel George Scribe documention review:: This chart was documented by a scribe and accurately reflects the service the provider performed and the decisions made by the provider. <Brandi Alvarado - Last Filed: 12/02/16 02:25> Physician Attestation
[2016-12-02 01:08] LABS: UR AMPHETAMINES QUAL NONE DETECTED (NONE DETECT); UR BARBITUATES QUAL NONE DETECTED (NONE DETECT); UR BENZODIAZEPIN QUAL NONE DETECTED (NONE DETECT); UR CANNABINOIDS QUAL NONE DETECTED (NONE DETECT); UR COCAINE QUAL NONE DETECTED (NONE DETECT); UR METHADONE QUAL NONE DETECTED (NONE DETECT); UR OPIATES QUAL NONE DETECTED (NONE DETECT); UR OXYCODONE QUAL NONE DETECTED (NONE DETECT); UR PCP QUAL NONE DETECTED (NONE DETECT)
[2016-12-02 01:22] LABS: BASO% 0.1 % (0.0-0.8); EOS% 1.1 % (0.0-10.0); HEMATOCRIT 43.9 % (37.0-47.0); HEMOGLOBIN 14.4 g/dL (12.0-16.0); IMM GRAN# 0.03 X1000 (0.0-0.04); IMM GRAN% 0.3 % (0.0-0.5); LYMPH% 6.5 % (20.5-51.1); MANUAL DIFF NEEDED? NO; MCH 30.6 PG (27-31); MCHC 32.8 g/dL (33-37); MCV 93.2 FL (81-99); MONO# 0.37 X1000 (0.11-0.59); MPV 9.8 FL (7.4-10.4); PLT 272 X1000 (130-400); RBC 4.71 XMIL (4.2-5.4)
[2016-12-02 01:23] LABS: ACETAMINOPHEN < 1.2 ug/mL (10-30); AGAP 17; ALKALINE PHOSPHATASE 131 U/L (32-104); BUN 24 mg/dL (8-22); CHLORIDE 100 mmol/L (98-107); COSMO 283; GOT 49 U/L (10-30); GPT 60 U/L (10-36); POTASSIUM 3.8 mmol/L (3.5-5.1); SODIUM 139 mmol/L (136-145); TCO2 22 mmol/L (25-35); TOTAL BILIRUBIN 0.64 mg/dL (0.20-1.00)
[2016-12-02] MEDS ORDERED: ZOFRAN IV PRN (03:14)
[2016-12-02 03:36] LABS: HEMOGLOBIN A1C 5.6 % (4.8-6.0)
[2016-12-02] MEDS ORDERED: LOVENOX SUBQ SCH (04:00)
[2016-12-02] MEDS: NS 1,000 ML IV SCH ×2 (05:06→13:56)
--- NOTE | 2016-12-02 05:25 | EKG Report ---
Test Performed on : 12/02/2016 00:10:23 AM Test Reason : overdose Blood Pressure : / mmHG Vent. Rate : 102 BPM Atrial Rate : 102 BPM P-R Int : 162 ms QRS Dur : 082 ms QT Int : 356 ms P-R-T Axes : 059 083 045 degrees QTc Int : 463 ms Sinus tachycardia. Biatrial enlargement Abnormal ECG When compared with ECG of 12-NOV-2016 15:57, No significant change was found Unconfirmed Result
[2016-12-02] MEDS: HUMALOG SUBQ SCH ×2 (07:00→18:14)
[2016-12-02 08:15] LABS: INR 1.02; PROTIME 10.7 Seconds (9.2-11.7)
[2016-12-02] MEDS: NEURONTIN PO SCH ×3 (09:24→18:22)
--- NOTE | 2016-12-02 09:33 | HISTORY AND PHYSICAL ---
DATE AND TIME OF HISTORY AND PHYSICAL: 12/02/2016 at 0345. CHIEF COMPLAINT: Overdosed/suicide attempt. HISTORY OF PRESENT ILLNESS: Ms. Perea is a 51-year-old female who presented to the E.R. [facility] with an attempted suicide with an overdose of BuSpar. The patient reportedly took between thirty and ninety 7.5 mg tablets. The patient reports that she does have a history of depression and has previously been treated at [facility] for this. She also reports that she previously has had thoughts of suicide by taking pills though has not had any previous attempts. The patient states that she took the pills tonight trying to hurt herself stating that "I am done and I do not want to hurt any more". She reports that her and her have recently been having relationship problems and that he has recently moved out of the house and is now dating an older woman. Her daughter states that she thinks she took the medication at around 10:30 on 12/01/2016. Upon evaluation in the E.R. the patient is drowsy though is arousable with verbal stimulation. She was alert and oriented to person and place though not time. She was able to recognize her daughter at the bedside and state her full name for us. The E.R. Staff did contact poison control who gave recommendations of symptomatic care, urine drug screen, CBC, liver function tests, PT, INR, and to initiate seizure precautions. The patient does have family members of her daughter who lives across the street and are able to help her if she needs it. She currently does live with her son. Her daughter reports that the patient has been disabled for a few years now though could not give me a clear reason other than she suffers from depression. The patient reports that other than being depressed and upset about her relationship issues that she has no other complaints. She denies any headache, dizziness, shortness of breath, chest pain , abdominal pain, nausea, vomiting, diarrhea, or constipation. She denies any bloody or black stools. She denies any fever, body aches, chills, cough, dysuria, urinary frequency, or pain, numbness, or tingling in the extremities. She denies a history of DVTs or pulmonary embolisms. At this time we will admit the patient to the ICU for further treatment and evaluation. REVIEW OF SYSTEMS: A 14 point review of systems was conducted with the patient and all were negative except for pertinent positives mentioned above in the HPI. PAST MEDICAL HISTORY: 1. Diabetes mellitus type 2. 2. Hypertension. 3. Suspected sleep apnea. 4. Dyslipidemia. 5. Hypothyroidism. PAST SURGICAL HISTORY: 1. Appendectomy. 2. Cholecystectomy. 3. Hysterectomy. 4. Tonsillectomy. 5. Bilateral carpal tunnel surgery. 6. Multiple right knee surgeries. FAMILY HISTORY: Positive for strokes in her mother and diabetes. SOCIAL HISTORY: The patient was previously though is now having relationship issues with her who has moved out and according to the patient is now dating an older woman. She has 4 children. She does drink occasionally though denies any illicit drug use. She does report smoking a pack a cigarettes a day and has done so for several years. ALLERGIES: The patient reports allergies to Toradol, morphine, and Zofran. HOME MEDICATIONS: 1. Requip 1 mg p.o. t.i.d.. 2. Robaxin 500 mg p.o. b.i.d.. 3. Metformin one tablet p.o. daily. 4. Synthroid 50 mcg p.o. every a.m.. 5. Vitamin D2 50,000 units p.o. every 7 days. 6. Cymbalta 30 mg p.o. every a.m.. 7. Diclofenac sodium 75 mg p.o. b.i.d.. 8. BuSpar 7.5 mg p.o. b.i.d.. 9. Lipitor one tablet p.o. at bedtime. 10.Gabapentin 300 mg p.o. t.i.d. 11. zyrtec PE tablet one each p.o. every 6 hours p.r.n.. DIAGNOSTIC DATA/LABORATORY RESULTS: White blood cell count is 9.2, hemoglobin 14.4, hematocrit 43.9, and platelet count 272. Sodium is 139, potassium 3.8, chloride 100, bicarb 22, BUN 24, creatinine 1.1, GFR 52, glucose 120, hemoglobin A1c 5.6, calcium 9, total bilirubin 0.64, AST 49, ALT 60, and alkaline phosphatase 131. Urine drug screen was negative. Serum alcohol was zero. Salicylate level was less than 3. Acetaminophen level was less than 1.2. PENDING DIAGNOSTIC STUDIES AT THIS TIME: EKG and PT with INR. PHYSICAL EXAMINATION: VITAL SIGNS: Temperature is 98.3, heart rate 101, respirations 18, and blood pressure 133/83. Oxygen saturation is 95% on room air. GENERAL: Ms. Perea is a pleasant 51-year-old female who was resting in the E.R. stretcher. She was in no acute distress. The patient was drowsy though was easily arousable to verbal stimuli and once awoken she was alert and oriented to person and place though not time. HEENT: The head is atraumatic, normocephalic. Pupils are equal, round, and reactive to light. They were 3 mm bilaterally and brisk. Oral mucosa is moist. Oropharynx is clear. NECK: Supple. Trachea is midline. CARDIOVASCULAR: The patient has normal S1, S2. No murmurs, gallops, or rubs appreciated with a regular rate and rhythm. PULMONARY: The patient has symmetrical chest expansion bilaterally. Lungs sounds are clear to auscultation in bilateral full agee. ABDOMEN: Soft, nontender, and does not appear to be distended though the patient has a protuberant abdomen noted. Bowel sounds are present in all four quadrants and normoactive. EXTREMITIES: No cyanosis, clubbing, or edema noted. Pulse, motor, and sensory were intact in all extremities as well. Pedal pulses were 3+ bilaterally. INTEGUMENTARY: The patient's skin is pink, warm, dry, and intact. No lesions or sores noted. NEUROLOGICAL: The patient is as mentioned above drowsy though easily arousable with verbal stimuli. Once awoken she is alert and oriented to person and place but not time. Cranial nerves 2 through 12 appear to be grossly intact. ASSESSMENT AND PLAN: 1. Suicidal ideation. For this we will continue with care for her overdose though once the patient is medically cleared we will obtain a psychiatric evaluation. Until that time the patient will be placed on suicide precautions. We will do neuro checks every 4 hours. We will removal all harmful items from the patient's room and will monitor her closely. 2. Drug overdose. For this we will monitor the patient's liver function tests as well as renal function. We will monitor her for seizure precautions. She will have vital signs every hour per Intensive Care Unit protocol. We will do neuro checks. We will monitor for aspiration precautions as well as seizure precautions. She will be n.p.o. at this time. We will do continuous pulse oximetry and will continue to follow. 3. Fluid volume depletion. For this we will continue with normal saline at 150 mL/hr. The patient did previously receive a 2 L normal saline bolus in the Emergency Room. 4. Acute kidney injury. This is likely secondary to fluid volume depletion. We will continue to follow and continue with fluid resuscitation as mentioned above. 5. Elevated liver function tests. This could likely be related to the ingestion of BuSpar. We will continue to monitor her liver function and we have ordered a hepatitis profile and will continue to follow. 6. Diabetes mellitus type 2. We will do fingersticks before meals and at bedtime and continue with Lispro low dose sliding scale insulin and continue to follow. The patient was placed in the ICU with telemetry. We will continue to monitor her closely as well as her cardiovascular and respiratory status. Further orders and recommendations pending hospital course, diagnostic studies, and physician evaluation. TOTAL CRITICAL CARE TIME: Approximately 40 minutes. Dictated by MARYCARMEN Hwang for Darell Solis MD Seen and examined patient and discussed plan of care with JAVIER WEBER
--- NOTE | 2016-12-02 13:07 | EKG Report ---
Test Performed on : 12/02/2016 12:45:10 PM Test Reason : CHEST PAIN Blood Pressure : / mmHG Vent. Rate : 089 BPM Atrial Rate : 089 BPM P-R Int : 158 ms QRS Dur : 080 ms QT Int : 378 ms P-R-T Axes : 061 073 053 degrees QTc Int : 459 ms Normal sinus rhythm. Biatrial enlargement Abnormal ECG When compared with ECG of 02-DEC-2016 08:24, (Unconfirmed) No significant change was found Confirmed by Megan MARTINEZ, Yanick Joshi ([id number]) on 12/02/2016 8:00:50 PM
--- NOTE | 2016-12-02 13:07 | EKG Report ---
Test Performed on : 12/02/2016 08:24:31 AM Test Reason : Overdose Blood Pressure : / mmHG Vent. Rate : 086 BPM Atrial Rate : 086 BPM P-R Int : 152 ms QRS Dur : 082 ms QT Int : 374 ms P-R-T Axes : 060 067 033 degrees QTc Int : 447 ms Normal sinus rhythm. Biatrial enlargement Abnormal ECG When compared with ECG of 02-DEC-2016 00:10, (Unconfirmed) No significant change was found Confirmed by Megan MARTINEZ, Yanick Joshi ([id number]) on 12/02/2016 8:00:40 PM
--- NOTE | 2016-12-02 13:34 | ED EKG INTERP ---
EKG Interpretation - EKG Time of EKG reading by physician:: 12:45 EKG Read and Signed by:: Shira Yuan EKG Interpretation (*Must complete 3 of following elements*): Abnormal Rate: 89 Rhythm: NSR Walker: normal QRS: normal SC Interval: normal ST Wave: normal Comments: biatrial enlargement Attestation - Scribe Verification/Attestation Scribe:: Kenan Ventura Acting as Scribe for:: Shira Yuan Scribe documention review:: This chart was documented by a scribe and accurately reflects the service the provider performed and the decisions made by the provider. Physician Attestation - Physician Attestation I, the provider, attest to the following statement:: Shira Yuan Physician documentation Attestation:: This documentation recorded by the scribe accurately reflects the service I personally performed and the decisions made by me.
[2016-12-02 16:54] VITALS: BP 142/88
[2016-12-02] MEDS ORDERED: STERILE WATER INJ. ONE (20:39)
[2016-12-02] MEDS ORDERED: GEODON ONE (20:39)
[2016-12-03 10:20] LABS: HEPATITIS PROFILE ACUTE SEE COMMENTS (())
--- NOTE | 2016-12-04 14:19 | DISCHARGE SUMMARY ---
ADMISSION DATE: 12/02/2016 DISCHARGE DATE: 12/02/2016 DISCHARGE DIAGNOSES: 1. Overdose suicide attempt. 2. Diabetes type 2. 3. Hypertension. 4. Obstructive sleep apnea. 5. Hyperlipidemia. 6. Obesity. 7. Hypothyroidism. DISCHARGE MEDICATION: None. HOSPITAL COURSE: The patient is a 51-year-old, female, admitted to the hospital after she took a whole bottle of her BuSpar because of the disagreement with her , soon to be ex- . The patient wanted to end it all because she stated that she did not want to go through a divorce and did not want to go through legal expenses. The patient admitted to our service. After a few hours she was still waking up. We treated the patient conservatively, and monitored her per Poison Control Center recommendations. The patient became awake and alert in the afternoon. We consulted [facility], who took the patient late in the evening when they had a bed open. She was medically stable for discharge. DISPOSITION: We sent the patient to [facility] for further psychiatric help. TIME SPENT: Total time discharging this patient is 35 minutes. cc: Diana Carolina MD
== END 2016-12-02 20:45 | disposition admitted as inpatient to this hospital (09) ==
LOC: EDBD → ED 23:47 → INTOOBSV 12-02 03:29 → EDIPHOLD 12-02 03:29 → ICU 12-02 17:14
PROVIDERS: ATTEND Internal Medicine

== ENCOUNTER 2018-09-19 21:42 | Inpatient (IN) ==
[2018-09-19 23:17] LABS: BASO# 0.02 X1000 (0.0-0.2); BASO% 0.2 % (0.0-0.8); EOS# 0.21 X1000 (0.0-0.7); EOS% 2.1 % (0.0-10.0); HEMATOCRIT 40.5 % (37.0-47.0); HEMOGLOBIN 12.1 g/dL (12.0-16.0); IMM GRAN# 0.04 X1000 (0.0-0.04); IMM GRAN% 0.4 % (0.0-0.5); LYMPH# 1.39 X1000 (1.2-3.4); LYMPH% 13.8 % (20.5-51.1); MCH 26.9 PG (27-31); MCHC 29.9 g/dL (33-37); MONO# 0.61 X1000 (0.11-0.59); MPV 9.5 FL (7.4-10.4); NEUT# 7.82 X1000 (1.4-6.5); NEUT% 77.5 % (42.2-75.2); PLT 379 X1000 (130-400); RDW 15.7 % (11.5-14.5); WBC 10.09 X1000 (4.8-10.8)
[2018-09-19 23:51] LABS: AGAP 12; ALB/GLOB RATIO 1.2; ALBUMIN 3.9 g/dL (3.5-5.0); ALKALINE PHOSPHATASE 91 U/L (32-104); BUN 11 mg/dL (8-22); CALCIUM 8.7 mg/dL (8.8-10.2); CHLORIDE 104 mmol/L (98-107); COSMO 294; CREATININE 0.8 mg/dL (0.5-0.9); ESTIMATED GFR > 60; GLUCOSE 106 mg/dL (70-104); GOT 10 U/L (10-30); GPT 11 U/L (10-36); POTASSIUM 3.8 mmol/L (3.5-5.1); SODIUM 148 mmol/L (136-145); TCO2 32 mmol/L (25-35); TOTAL BILIRUBIN 0.25 mg/dL (0.20-1.00); TOTAL PROTEIN 7.2 g/dL (6.3-8.3)
--- NOTE | 2018-09-19 23:55 | PROVIDER DOCUMENTATION ---
This chart was entered by Elisabeth Lopez Scribe, acting as scribe for King Salas MD. HPI-Respiratory General - General Chief Complaint: Shortness of Breath Stated Complaint: SOB Time Seen by Provider: 09/19/18 21:51 Source: patient Allergies/Adverse Reactions: Patient Allergies Allergy/AdvReac Type Severity Reaction Status Date / Time ketorolac tromethamine * Allergy NAUSEA/VOMI Verified 02/08/18 20:55 [From Toradol] TING ondansetron HCl * Allergy NAUSEA/VOMI Verified 02/08/18 20:55 [From Zofran (as TING hydrochloride)] Sulfa (Sulfonamide Allergy yellowing Verified 02/08/18 20:55 Antibiotics) of eyes and skin codeine AdvReac HEADACHE Verified 02/08/18 20:55 morphine AdvReac ITCHING Verified 02/08/18 20:55 Home Medications: Home Medication List Medication Instructions Recorded Confirmed Last Taken Type ATORVAstatin [Lipitor] 40 mg PO DAILY 04/28/17 08/01/18 07/31/18 20:00 History Aripiprazole 10 mg PO DAILY 04/28/17 08/01/18 07/31/18 08:00 History Bupropion HCl [Bupropion HCl Sr] 300 mg PO DAILY 04/28/17 08/01/18 07/31/18 08: 00 History Levothyroxine [Synthroid] 125 microgm PO DAILY 04/28/17 08/01/18 07/31/18 07:00 History Metformin [Glucophage] 500 mg PO DAILY 04/28/17 08/01/18 07/31/18 08:00 History Ropinirole [Requip] 1 tab PO TID 04/28/17 08/01/18 07/31/18 22:00 History Ergocalciferol (Vitamin D2) 50,000 unit PO Q7D 02/08/18 08/01/18 07/31/18 08:00 History [Vitamin D2] Ketorolac [Toradol] 10 mg PO Q6H PRN PRN 02/08/18 08/01/18 07/31/18 21:00 History Lubiprostone [Amitiza] 8 microgm PO BID 02/08/18 08/01/18 07/31/18 20:00 History Metoclopramide [Reglan] 10 mg PO TID AC 02/08/18 08/01/18 07/31/18 22:00 History Omeprazole Magnesium 20 mg PO PRN PRN 02/08/18 08/01/18 07/31/18 08:00 History PRAVAstatin [Pravachol] 80 mg PO QHS 02/08/18 08/01/18 07/31/18 20:00 History Tizanidine [Zanaflex] 4 mg PO TID 02/08/18 08/01/18 07/31/18 22:00 History Furosemide [Lasix] 40 mg PO DAILY #90 tab 02/13/18 08/01/18 07/31/18 08:00 Rx Losartan [Cozaar] 25 mg PO DAILY #60 tab 02/13/18 08/01/18 07/31/18 08:00 Rx Nicotine Patch [Nicoderm Patch] 21 mg TD DAILY patch.[id number] 02/13/18 08/01/18 Unknown Rx Albuterol 2.5MG/Ipratrop 0.5MG 3 ml INH Q4H PRN PRN #60 neb 08/08/18 Unknown Rx [Duoneb (A & A)] Ciprofloxacin HCl 500 mg PO BID #20 tab 08/08/18 Unknown Rx Doxycycline 100 mg PO BID #20 tab 08/08/18 Unknown Rx Methylprednisolone [Medrol Dosepak] 4 mg PO DIRECTED #1 pkg 08/08/18 Unknown Rx - History of Present Illness-Resp Nature of Presenting Problem: pt is a 53 yr old female with history of severe COPD requiring continuous home oxygen presenting with 2 day complaint of increased shortness of breath despite using home o2. pt reports dyspnea with minimal exertion. pt does not use home breathing treatments. pt uses Bipap at night. pt denies fever/chills, no ear or throat pain. pt denies cough. Quality of Pain: reports: none Severity in ED: reports: severe Onset/Duration: reports: 2 days ago Timing: reports: changing over time, getting worse Context: reports: other Exposure: reports: unknown cause Cough Quality/Degree: reports: no cough Episode Frequency: occasional episodes Current Respiratory Medication Therapy: Initiated none (no home therapys) Modifying Factors: improves with: exertion (dypnea with minimal exertion), oxygen (no improvement) Associated Symptoms: reports: shortness of breath. denies: cough, fever/chills , wheezing Similar Symptoms Previously?: Yes (hx of COPD) Recently seen or treated by another doctor?: No Review of Systems - Adult - REVIEW OF SYSTEMS - ADULT Constitutional: denies: chills, fever Eyes: denies: discharge, redness Ears, Nose, Mouth & Throat: denies: ear pain, sinus problem, throat pain Cardiovascular: denies: chest pain, palpitations, syncope Respiratory: reports: dyspnea on exertion, shortness of breath. denies: cough, pleurisy, wheezing Gastrointestinal: reports: no symptoms reported Genitourinary: reports: no symptoms reported Musculoskeletal: denies: muscle aches Integumentary: reports: no symptoms reported Neurological: denies: dizziness/vertigo, headache/migraines Psychiatric: reports: no symptoms reported Endocrine: reports: no symptoms reported Hematologic/Lymphatic: reports: no symptoms reported Allergic/Immunologic: reports: no symptoms reported All Other Systems: Reviewed and Negative Past History - Adult - PAST MEDICAL HISTORY-ADULT Review of Records: reports: Old Records Reviewed, Nursing Assessment Review, Medications Reviewed, Social history reviewed & non-contributory. Major Childhood Illnesses: reports: denies history Cardiovascular: reports: CHF, hyperlipidemia Respiratory: reports: COPD Gastrointestinal: reports: denies history, diverticulosis Obstetrical/Gynecological: reports: denies history Genitourinary: reports: denies history, kidney stones Musculoskeletal: reports: denies history Neurological: reports: denies history, other (bipolar; restless leg syndrome) Endocrine/Immune: reports: denies history, Diabetes, thyroid disorder Other Conditions: reports: denies history - PRIOR SURGERIES/PROCEDURES Surgical/Procedure History: reports: appendectomy, cholecystectomy, hysterectomy , tonsillectomy, orthopedic (extremity) (carpal tunnel; R knee) - IMMUNIZATION STATUS Childhood Immunizations: See Nurse Assessment Flu Vaccine: See Nurse Assessment - FAMILY HISTORY Family History: reviewed, not pertinent - SOCIAL HISTORY Smoking: quit less than 1 year (2 months ago) Substance Use: alcohol Alcohol Use Frequency: rarely Living Situation: family Physical Exam-General - PHYSICAL EXAM-ADULT Initial Vital Signs Reviewed: Yes - CONSTITUTIONAL General Appearance: alert, mild distress, obese - EYES Eyes: PERRL/EOMI - HEAD, EARS, NOSE, MOUTH & THROAT HENMT: normocephalic/atraumatic, moist mucous membranes, normal ENT inspection - NECK Neck: non-tender, full range of motion, supple, normal inspection - RESPIRATORY Respiratory: chest non-tender, no pleuratic chest pain, no accessory muscle use , decreased breath sounds (bilaterally), increased rate - CARDIOVASCULAR Cardiovascular: normal peripheral pulses, tachycardia (109) - GASTROINTESTINAL (ABDOMEN) Abdominal Exam: normal bowel sounds, non tender, soft - LYMPHATIC Lymphatic: no adenopathy - MUSCULOSKELETAL Back Exam: normal inspection, no CVA tenderness, no vertebral tenderness Extremity: normal range of motion, non-tender, normal gait, normal capillary refill, pedal edema - SKIN Integumentary: normal color, normal turgor, warm/dry - NEUROLOGIC Neurologic: grossly normal, no motor/sensory deficits - PSYCHIATRIC Psych/Mental Status: normal mood/affect, normal thought content, normal thought process, oriented x 3 Progress - PLAN OF CARE/RESULTS Progress/Plan/Lab Results: Vital Signs - 8 hr 09/19/18 21:46 Temperature 98.0 F Pulse Rate 109 H Respiratory Rate 22 Blood Pressure 143/58 O2 Sat by Pulse Oximetry 89 L Laboratory Results - last 24 hr 09/19/18 09/19/18 09/19/18 23:00 23:00 23:00 WBC 10.09 RBC 4.50 Hgb 12.1 Hct 40.5 MCV 90.0 MCH 26.9 L MCHC 29.9 L RDW Std Deviation 15.7 H Plt Count 379 MPV 9.5 Immature Gran % (Auto) 0.4 Neut % (Auto) 77.5 H Lymph % (Auto) 13.8 L [place] % (Auto) 6.0 Eos % (Auto) 2.1 Baso % (Auto) 0.2 Immature Gran # (Auto) 0.04 Neut # (Auto) 7.82 H Lymph # (Auto) 1.39 [place] # (Auto) 0.61 H Eos # (Auto) 0.21 Baso # (Auto) 0.02 D-Dimer, Quantitative 0.33 Sodium 148 H Potassium 3.8 Chloride 104 Carbon Dioxide 32 Anion Gap 12 BUN 11 Creatinine 0.8 Estimated GFR/1.73 m2 > 60 BUN/Creatinine Ratio 14 Glucose 106 H Calculated Osmolality 294 Calcium 8.7 L Total Bilirubin 0.25 AST 10 ALT 11 Alkaline Phosphatase 91 Sow-C-Ruhmvulhche Pept Total Protein 7.2 Albumin 3.9 Globulin 3.3 Albumin/Globulin Ratio 1.2 09/19/18 23:00 WBC RBC Hgb Hct MCV MCH MCHC RDW Std Deviation Plt Count MPV Immature Gran % (Auto) Neut % (Auto) Lymph % (Auto) [place] % (Auto) Eos % (Auto) Baso % (Auto) Immature Gran # (Auto) Neut # (Auto) Lymph # (Auto) [place] # (Auto) Eos # (Auto) Baso # (Auto) D-Dimer, Quantitative Sodium Potassium Chloride Carbon Dioxide Anion Gap BUN Creatinine Estimated GFR/1.73 m2 BUN/Creatinine Ratio Glucose Calculated Osmolality Calcium Total Bilirubin AST ALT Alkaline Phosphatase Hzt-[id number] Pept 185 Total Protein Albumin Globulin Albumin/Globulin Ratio Orders Category Date Time Status Saline Loc NOW Care 09/19/18 22:48 Active CHEST-2 VIEWS [RAD] Stat Exams 09/19/18 22:48 Taken BLOOD CULTURE [BLDCUL] Stat Lab 09/19/18 23:07 Ordered CBC WITH DIFF [HEME] Stat Lab 09/19/18 23:00 Completed COMPREHENSIVE METABOLIC PANEL [CHEM] Stat Lab 09/19/18 23:00 Completed D-DIMER [COAG] Stat Lab 09/19/18 23:00 Completed PRO B-NATRIURETIC PEPTIDE Stat Lab 09/19/18 23:00 Completed TROPONIN T Stat Lab 09/20/18 00:03 Ordered Pulse Oximetry Stat Oth 09/19/18 22:48 Active EKG [EKG] Stat Ther 09/19/18 21:53 Ordered Result Diagrams: 09/19/18 23:00 09/19/18 23:00 - EKG 1 Time of EKG reading by physician:: 22:02 EKG Read and Signed by:: King Salas EKG Interpretation (*Must complete 3 of following elements*): Abnormal ( biatrial enlargement) Rate: 101 Rhythm: sinus tachycardia QRS: other (low voltage QRS) [place] Interval: normal ST Wave: normal Departure - Departure Date of Disposition Decision: 09/19/18 Time of Disposition Decision: 00:08 DIAGNOSIS: COPD exacerbation, Hypoxemia Disposition: ADMITTED INPATIENT 09 Certified Medical Emergency: Emergent Condition: Stable Referrals and Follow-Ups: Enriqueta Godinez MD [Primary Care Provider] - - Critical Care Note This patient required my direct & personal management of CC.: No Attestation - Physician/ LOI Attestation Patient care was provided by Advanced Practice Provider:: No The physician spent face to face time with patient:: Yes Advanced Practice Provider documentation review:: Supervising physician onsite and consulted in the evaluation and care of this patient. The physician did have a face to face encounter with the patient. This chart was documented by the indicated scribe, (Elisabeth Lopez Scribe) and accurately reflects the services I performed and decisions made by me, King Salas MD, as attested by the provider's signature.
[2018-09-20] MEDS ORDERED: DUONEB (A & A) INH ONE (00:05)
[2018-09-20] MEDS ORDERED: SOLU-MEDROL IV ONE (00:05)
[2018-09-20 00:33] LABS: ALLEN TEST YES; BE 8.3 mmoll (-3.0-3.0); BLOOD TYPE ARTERIAL; HCO3-(ACT) 31.4 mmoll (20.0-26.0); O2HB 95.8 % (95.0-99.0); PO2(98.6) 95 mmHg (60-100); SAMPLE BLOOD; SAO2 98.8 % (95.0-100.0); THB 11.8 g/dL (11.5-17.4)
[2018-09-20 00:35] LABS: MODALITY CANNULA
[2018-09-20 00:36] LABS: PCO2(98.6) 56 mmHg (35-45)
[2018-09-20] MEDS ORDERED: LASIX IV ONE (00:59)
[2018-09-20 01:12] LABS: INR 0.91
[2018-09-20 01:13] LABS: PTT 34.2 Seconds (22.3-41.8)
[2018-09-20 03:14] LABS: URINE SOURCE CLEAN CATCH
[2018-09-20 03:17] LABS: BILIRUBIN URINE NEGATIVE (NEGATIVE); BLOOD URINE NEGATIVE (NEGATIVE); COLOR STRAW; GLUCOSE URINE NEGATIVE (NEGATIVE); KETONE URINE NEGATIVE (NEGATIVE); LEUKOCYTES URINE NEGATIVE (NEGATIVE); NITRITE URINE NEGATIVE (NEGATIVE); PROTEIN URINE NEGATIVE (NEGATIVE); TURBIDITY URINE CLEAR (CLEAR); UROBILINOGEN URINE NORMAL (NORMAL)
[2018-09-20 03:19] LABS: UR EPITHELIAL CELLS <10 /HPF (<10); URINE BACTERIA NEGATIVE /HPF; URINE RBC <10 /HPF (<10); URINE WBC <10 /HPF (<10)
[2018-09-20] MEDS ORDERED: NORCO-5 PO ONE (03:33)
--- NOTE | 2018-09-20 03:47 | HISTORY AND PHYSICAL ---
ADDENDUM REASON FOR ADMISSION: Shortness of breath for just over 24 hours' duration. She came in tonight to the ER because she developed sudden PND and orthopnea a few hours ago. HISTORY OF PRESENT ILLNESS: The patient denies any contact with anybody with respiratory illnesses. She denies any fever or chills. She denies any swelling in her extremities or abdomen. She has stopped smoking since I last saw her around [facility] last year. LAB WORK: Notable for white count 10,000, hemoglobin 20, hematocrit 40, platelets 379,000. Her sodium is 148, BUN and creatinine are normal, however. Her blood gases on 4 L are 7.4, pCO2 66, pO2 95. Her D-dimer was negative. Troponin T was negative. PHYSICAL EXAMINATION: GENERAL: On examination the patient is a morbidly obese woman who is in moderate respiratory distress. VITAL SIGNS: Blood pressure 142/68, heart rate is 90, respirations 22, temperature 98 degrees. She is 96% on 3 L. NECK: Short and thick, no JVD. CHEST: Decreased air entry in both lung agee with bibasilar crepitations. CARDIOVASCULAR: First and second heart sounds heard. No murmurs, gallops or rubs. Rhythm is regular. ABDOMEN: Protuberant, nontender. Bowel sounds hypoactive. EXTREMITIES: The patient has good distal pulses. No edema noted. No clubbing or peripheral cyanosis. NEURO: No asterixis noted. ASSESSMENT: Probable mild congestive heart failure exacerbation with chronic obstructive pulmonary disease exacerbation. She does have a prior history of moderate mitral stenosis and mild aortic regurgitation in the past. The patient may benefit from repeat echocardiogram being that this is more than 6 months since her last one, if so desired. In the interim will start the patient on Lasix 40 mg q.12, DuoNebs short and long-acting. Moderate doses of steroids will be given. The patient's symptoms of PND and orthopnea which were sudden still makes me believe that a cardiac source needs to be addressed in this patient. She also will resume her nocturnal BiPAP support. Fortunately, she is not in acute hypercapnic respiratory failure. cc: Darell Solis MD
[2018-09-20] MEDS ORDERED: SODIUM CHLORIDE 0.9% INJ PRN (05:04)
[2018-09-20] MEDS ORDERED: PHENERGAN IV PRN (05:04)
[2018-09-20] MEDS: DUONEB (A & A) INH SCH ×6 (05:27→23:18)
[2018-09-20] MEDS: SYNTHROID PO SCH ×2 (05:29→06:20)
[2018-09-20] MEDS: LOVENOX SUBQ SCH (05:29)
[2018-09-20] MEDS: HUMALOG SUBQ SCH ×5 (06:20→20:33)
--- NOTE | 2018-09-20 06:29 | HISTORY AND PHYSICAL ---
PRIMARY CARE PROVIDER: Dr. Enriqueta Godinez CHIEF COMPLAINT: Shortness of breath. HISTORY OF PRESENT ILLNESS: Ms Perea is a 53-year-old female with a past medical history most notable for congestive heart failure, COPD on continuous oxygen with nasal cannula at 2 L, obstructive sleep apnea, diabetes mellitus type 2, hypothyroidism, hypertension and depression. The patient states that for approximately 3 days she has had worsening shortness of breath although last night just prior to arrival to the ER she states it became much worse. The patient has been reporting worsening dyspnea with exertion, orthopnea and paroxysmal nocturnal dyspnea. She states at this time she is having to use 2 pillows to prop up and she is no longer able to lie flat. She does have a history of congestive heart failure and it looks as though she was discharged in August to take 40 mg of Lasix p.o. daily. She states that her primary care physician has discontinued this medication recently. She has reported some dizziness with exertion. She also reports some heaviness in her chest, stating, "It feels like someone is sitting on my chest." She denies any abdominal distention or pain. The patient states she has had some decreased urine output, but denies any dysuria. She also denies any increased swelling in her extremities. The patient states that she does have a wet cough and this has been ongoing for approximately 2-3 weeks, although this is nonproductive. She denies any fever, body aches or chills. Upon evaluation in the ER the patient was noted to be slightly hypoxic with an oxygen saturation of 98% on nasal cannula at 2 L. She has been afebrile. The patient, although is not in any respiratory distress, does appear to be mildly tachypneic and slightly dyspneic upon examination. The patient was requesting to sit up in the bed instead of being reclined back slightly. Lung sounds were diminished in the bilateral bases, although were coarse throughout the lung agee. She did not have any obvious JVD noted. Cardiac enzymes were negative. ProBNP was 185. Arterial blood gases were obtained on nasal cannula at 4 L. Her pCO2 was slightly elevated at 56. Her pH was within normal limits and pO2 was 95 and oxygen saturation was 98%. Chest x-ray was performed. She did appear to have some possible mild pulmonary edema in bilateral bases, although we are awaiting official radiology over--read. EKG showed sinus tachycardia at a rate of 101 with a QTc of 440. At this time the patient will be admitted for further evaluation of her congestive heart failure exacerbation and COPD exacerbation. REVIEW OF SYSTEMS: A 14-point review of systems was conducted with the patient and all were negative except for pertinent positives mentioned in the above HPI. PAST MEDICAL HISTORY: 1. Diabetes mellitus type 2. 2. Hypothyroidism. 3. Bipolar depression. 4. History of previous suicide attempt. The patient is denying any suicidal thoughts at this time. 5. Hyperlipidemia. 6. Hypertension. 7. COPD. 8. Obstructive sleep apnea for which she wears BiPAP at night. 9. Congestive heart failure with last known ejection fraction of 60% on 02/09/2018. 10.Oxygen dependence. PAST SURGICAL HISTORY: 1. Appendectomy. 2. Cholecystectomy. 3. Hysterectomy. 4. Tonsillectomy. 5. Bilateral carpal tunnel repair. 6. Multiple knee surgeries which included left knee replacement. SOCIAL HISTORY: The patient does live with her daughter. She does use the assistance of a walker to ambulate. She denies any alcohol or illicit drug use, though is a former smoker and just recently quit smoking 2 months ago. ALLERGY: The patient reports allergies to Toradol, Zofran, codeine and sulfa. HOME MEDICATIONS: 1. DuoNeb albuterol and Atrovent treatment, 3 mL inhaled q.4 h. p.r.n. for wheezing and shortness of breath. 2. Aripiprazole 2 mg p.o. daily. 3. Atorvastatin 40 mg p.o. daily. 4. Bupropion HCl SR 300 mg p.o. daily. 5. Vitamin D3 50,000 units p.o. q.7 days. 6. Synthroid 100 mcg p.o. daily. 7. Cozaar 25 mg p.o. daily. 8. Metformin 500 mg p.o. daily. 9. Reglan 2 mg p.o. t.i.d. a.c. 10.Requip 1 mg p.o. daily. 11.Zanaflex 4 mg p.o. t.i.d. DIAGNOSTIC DATA: White blood cell count is 10,090, hemoglobin 12.1, hematocrit 40.5, platelet count 379,000. PT 13, INR 0.9, PTT 34.2. D-dimer 0.33. Sodium 148, potassium 3.8, chloride 104, serum bicarbonate 32, BUN 11, creatinine 0.8, GFR greater than 60, glucose 106, calcium 8.7, magnesium 1.7. Liver function tests within normal limits. Troponin less than 0.01, proBNP 185. Arterial oxygen saturation obtained on nasal cannula with FIO2 36%, pH 7.4, pCO2 56, pO2 95, HCO3 31.4 with a base excess of 8.3, and O2 saturation of 98.8. EKG shows sinus tachycardia at a rate of 101 with QTc of 440. A chest x-ray does show possible mild pulmonary edema in bilateral bases, although we are awaiting official radiology over-read. PHYSICAL EXAMINATION: VITAL SIGNS: Temperature 98, heart rate 94, respirations 22, blood pressure 129/75, oxygen saturation is 95% on nasal cannula at 4 L. GENERAL: Ms. Perea is a 53-year-old female who is resting on the ER stretcher. Although she is in no acute distress, she is slightly tachypneic and mildly dyspneic upon examination. She alert and oriented and able to answer all questions appropriately. HEENT: Head is atraumatic, normocephalic. Pupils are equal, around, reactive to light at 3 mm bilaterally and brisk. Oral mucosa is moist. Oropharynx is clear. NECK: Supple. Trachea midline. No JVD noted upon examination and no hepatojugular reflux noted. CARDIOVASCULAR: S1, S2. No murmur, gallop, or rub appreciated with a regular rate and rhythm. PULMONARY: The patient has symmetrical chest expansion bilaterally. Lung sounds in bilateral full agee are coarse and she does have diminished lung sounds in bilateral bases as well as some faint crackles in bases as well. ABDOMEN: Soft, appeared to be maybe slightly distended, but the patient states that her abdomen has not increased in size. She does have a protuberant abdomen noted. Bowel sounds are present in all 4 quadrants and are normoactive. EXTREMITIES: No clubbing, cyanosis or edema noted. Pulses, motor and sensory are intact in all extremities. Radial and pedal pulses are 2+ bilaterally. Capillary refill is less than 3. INTEGUMENTARY: Patient's skin is pink, warm and dry. NEUROLOGIC: The patient is alert and oriented x4. She is able to move all extremities. There do not appear to be any focal neurologic deficits noted.. ASSESSMENT AND PLAN:. 1. Acute diastolic heart failure. As previously mentioned, the patient has had 4 days of worsening symptoms of dyspnea with exertion and paroxysmal nocturnal dyspnea as well as increased oxygen demands. For further treatment and evaluation we will place her on Lasix 40 mg IV daily. We will do daily weights, strict intake and output. She will be on a heart healthy diet. We will repeat a BMP and magnesium in the morning and will do a series of cardiac enzymes. Given that the patient has had worsening symptoms as mentioned above, we have decided to go ahead and repeat her echocardiogram as well. We have placed a consult with Dr. Hightower of Cardiology and will await further evaluation and recommendations for management. 2. Chronic obstructive pulmonary disease exacerbation. For treatment of this we will continue with scheduled DuoNeb treatments, continue her oxygen supplementation as well as we will place the patient on low dose steroids, Solu-Medrol 20 mg IV q.12 hours. At this time I do feel that the patient's respiratory symptoms are likely more related to her congestive heart failure exacerbation though we will permit some IV steroids though will keep at a low dose given her acute heart failure exacerbation. We will continue to monitor respiratory status closely. 3. Hypertension. We will continue with Cozaar. 4. Hyperlipidemia. Will continue her atorvastatin. 5. Diabetes mellitus type 2. Given that the patient will be on IV steroids we have placed her on a sliding scale lispro insulin for better glucose control [*]closely. 6. Obstructive sleep apnea. Will continue the patient's BiPAP at night. 7. Deep vein thrombosis prophylaxis provided with Lovenox 40 mg subcutaneously q.24 hours. 8. Hypothyroidism. Will continue the patient's Synthroid. We have ordered a TSH. 9. Bipolar depression. We will continue the patient Wellbutrin and Abilify. This patient does have a history of prior suicide attempt, although she is denying any suicidal thoughts at this time. 10.The patient will be placed on the medical floor with telemetry. She will have vital signs q.4 hours, have strict intake and output. Further orders and recommendations pending hospital course, diagnostic studies and physician evaluations. Dictated by MARYCARMEN Hwang for Darell Solis MD cc: Darell Solis MD
--- NOTE | 2018-09-20 07:51 | EKG Report ---
Test Performed on : 09/20/2018 07:46:22 AM Test Reason : Chest Pain Blood Pressure : / mmHG Vent. Rate : 078 BPM Atrial Rate : 078 BPM P-R Int : 156 ms QRS Dur : 078 ms QT Int : 400 ms P-R-T Axes : 059 069 040 degrees QTc Int : 456 ms Normal sinus rhythm. Biatrial enlargement Abnormal ECG When compared with ECG of 19-SEP-2018 22:01, (Unconfirmed) No significant change was found Confirmed by Laura MARTINEZ, Jerson Poole ([id number]) on 09/23/2018 9:42:35 AM
--- NOTE | 2018-09-20 07:55 | EKG Report ---
Test Performed on : 09/19/2018 10:01:25 PM Test Reason : sob Blood Pressure : / mmHG Vent. Rate : 101 BPM Atrial Rate : 101 BPM P-R Int : 150 ms QRS Dur : 078 ms QT Int : 340 ms P-R-T Axes : 057 082 049 degrees QTc Int : 440 ms Sinus tachycardia. Biatrial enlargement Low voltage QRS Abnormal ECG When compared with ECG of 31-JUL-2018 17:42, (Unconfirmed) No significant change was found Unconfirmed Result
--- NOTE | 2018-09-20 08:11 | Diag Imaging Result Doc PS360 ---
EXAM: CHEST-2 VIEWS - 09/19/2018 HISTORY: cough TECHNIQUE: Chest two views COMPARISON: 08/07/2018 FINDINGS: Heart size is normal. There are ill-defined bilateral infrahilar infiltrates. The upper lungs appear essentially clear. There is a calcified granuloma from old granulomatous disease at the left base. There is no pleural effusion or pneumothorax identified. IMPRESSION: Ill-defined bilateral infrahilar infiltrates. Bronchopneumonia cannot be excluded. Electronically signed by Laureano Chisholm 09/20/2018 8:09 AM
[2018-09-20] MEDS: PROTONIX PO SCH (08:39)
[2018-09-20] MEDS: ABILIFY PO SCH (08:43)
[2018-09-20] MEDS: LIPITOR PO SCH (08:44)
[2018-09-20] MEDS: REQUIP PO SCH ×3 (08:44→17:21)
[2018-09-20] MEDS ORDERED: LASIX IV SCH (09:00)
[2018-09-20] MEDS ORDERED: COZAAR PO SCH (09:00)
[2018-09-20] MEDS: WELLBUTRIN SR PO SCH (09:37)
--- NOTE | 2018-09-20 11:33 | CONSULTATION ---
DATE OF CONSULTATION: 09/20/2018 IMPRESSION: 1. Dyspnea, likely multifactorial, but clinical findings suggest more likely predominance of pulmonary etiology with history of chronic obstructive pulmonary disease requiring chronic oxygen, as well as obstructive sleep apnea likely present. Chest x-ray and proBNP not consistent with congestive heart failure. 2. 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 3. Hypothyroidism. TSH significantly elevated suggesting hypothyroidism under-replaced. 4. Chronic obstructive pulmonary disease requiring home oxygen. 5. Morbid obesity. 6. Probable obstructive sleep apnea. 7. Type 2 diabetes mellitus. 8. Hypertension. 9. Poor compliance with dietary restrictions obvious. RECOMMENDATIONS: 1. Limited diuresis not unreasonable. 2. Repeat echocardiography. 3. D-dimer normal making pulmonary embolus unlikely. Nevertheless, would supplement evaluation with venous Doppler study. 4. Patient counseled at length regarding dire need for weight loss. 5. Smoking cessation strongly reinforced. She stopped smoking a few months ago and previously smoked 2 packs of cigarettes per day. HISTORY: This 53-year-old white female with past history of morbid obesity, significant COPD requiring home oxygen, probable obstructive sleep apnea, moderate rheumatic mitral stenosis, hypertension, and type 2 diabetes mellitus was admitted through the emergency room with progressive dyspnea symptoms. She reports that the last 3 days or so, she has had increased shortness of breath. She denies orthopnea as her shortness of breath seemed to be independent of whatever position she was in. She did note that her shortness of breath seemed to be worse at night. There is some cough, which is modest, and no significant sputum production. There has been no chest pain. She relates she discontinued heavy smoking a few months ago and previously smoked 2 packs of cigarettes per day. She has been started on diuretic therapy for possible component of congestive heart failure. She indicates that she is in need of a diet from her primary provider. When the patient was asked regarding what sort food she ate, she replied that ate "whatever her daughter put in front of her." On further questioning, this consisted of pizza and hot wings. PAST MEDICAL HISTORY: 1. Morbid obesity. 2. COPD requiring chronic home oxygen. 3. Probable obstructive sleep apnea. 4. Type 2 diabetes mellitus. 5. Hypothyroidism. 6. Previous episode of congestive heart failure with normal left ventricular ejection fraction. This potentially may have been related to moderate mitral stenosis. 7. Moderate rheumatic mitral stenosis. 8. Hypertension. 9. Depression. 10. Hyperlipidemia. PAST SURGICAL HISTORY: Appendectomy, cholecystectomy, tonsillectomy, bilateral carpal tunnel release, and multiple knee surgeries. MEDICATIONS PRIOR TO ADMISSION: As listed. ALLERGIES: She is allergic or intolerant to Toradol, codeine, Zofran and sulfa, as well as morphine. SOCIAL HISTORY: She is single and on disability. She lives with her daughter. She smoked 2 packs of cigarettes for many years, but discontinued just a couple of months ago. She does not use alcohol. FAMILY HISTORY: Negative for premature coronary disease. REVIEW OF SYSTEMS: Pulmonary: Noteworthy for dyspnea and modest cough with minimal sputum production. Gastrointestinal: Negative. Constitutional: Negative. Remainder of review of systems negative/noncontributory with 14 total systems reviewed. PHYSICAL EXAMINATION: General: Physical exam reveals a morbidly obese adult female in no distress, on supplemental oxygen per nasal cannula. Vital signs: Blood pressure 113/57, heart rate 79 and regular with ECG monitor showing sinus rhythm. Weight 262 pounds. Reported height 5 feet 1 inch. HEENT: Extraocular movements appear intact. Mucous membranes moist. Neck: Supple without jugular venous distention. There are no carotid bruits. Chest: Clear to auscultation. Cardiac Exam: Regular rate and rhythm with somewhat distant heart sounds. No murmur or gallop could be appreciated. Abdomen: Soft, nontender. Extremities: Without edema. Neurologic Exam: Reveals her to be alert and fully oriented. Speech is fluent. She moves all 4 extremities equally well. Skin: Warm and dry. Psychiatric: Exam reveals her mood to be appropriate. PERTINENT DATA: Twelve-lead EKG demonstrates sinus rhythm at 101 beats per minute and left atrial abnormality. There is low voltage QRS. LABORATORY DATA: Sodium 148, potassium 3.8, chloride 104, carbon dioxide 32, BUN 11, creatinine 0.8, glucose 106. TSH 41.59. Magnesium 1.7. ProB natriuretic peptide level 185. Initial troponin T less than 0.01. Followup troponin T less than 0.01. D-dimer 0.33. White blood cell count 10.09, hematocrit 40.5, hemoglobin 12.1, platelet count 379,000. Chest x-ray per my review shows no acute infiltrates. cc: Dakotah Hightower MD
[2018-09-20] MEDS: SOLU-MEDROL IV SCH (13:18)
[2018-09-20] MEDS: ROCEPHIN 1 GM in NS 50 ML IV SCH (13:18)
[2018-09-20] MEDS: ZITHROMAX 500 MG/NS 500 MG/250 ML IVPB IV SCH ×2 (13:49→14:45)
--- NOTE | 2018-09-20 17:16 | PROGRESS NOTE ---
DATE: 09/20/2018 INTERVAL HISTORY: The patient with continued largely nonproductive cough and dyspnea. No fevers, chills, nausea, vomiting, or diarrhea. Blood pressure remains low but acceptable. No new complaints. No acute events overnight. REVIEW OF SYSTEMS: Twelve-point review of systems negative as per interval history. LABORATORY DATA: ABG was pH 7.4, pCO2 of 56, PO2 of 95, O2 saturation 98% on 4 L by nasal. Glucose 145. TSH 41.5. Free T4 of 0.9. Urinalysis unremarkable. Troponin negative x2. ProBNP 185 IMAGING: Chest x-ray with bilateral infrahilar infiltrates, possible bronchopneumonia. PHYSICAL EXAMINATION: Vitals: T-max 98.2 degrees, pulse 79, respirations 18, blood pressure 113/57, O2 saturations 94% on 4 L by nasal cannula. General: No acute distress. Obese. HEENT: Normocephalic, atraumatic. Moist mucous membranes. Neck: No cervical adenopathy. Cardiovascular: Regular rate and rhythm. No murmurs, rubs, or gallops. Pulmonary: Mildly decreased breath sounds throughout. No wheezing. Abdomen: Soft, nontender, nondistended. Bowel sounds positive. Extremities: Peripheral pulses intact. No clubbing or cyanosis. Neurologic: Cranial nerves 2-12 grossly intact. Global mild weakness but no focal deficits. Psychiatric: Normal mood and affect. Awake, alert, and oriented x3. Skin: New rashes or lesions identified. ASSESSMENT AND PLAN: 1. Dyspnea, likely pneumonia. Patient with history of COPD with chronic hypoxic, hypercapnic respiratory failure. Chest x-ray was consistent with pneumonia. No wheezing and pH normal. So chronic obstructive pulmonary disease exacerbation unlikely. BNP normal, and chest x-ray not convincing for edema, so congestive heart failure also unlikely. The patient is started on Rocephin and azithromycin for likely community-acquired pneumonia on 2 L of oxygen at home. Requiring slightly more than that here, she may have an aspect of acute hypoxic respiratory failure as well. Continue antibiotics and nebs and monitor. We will consider CT chest if the patient does not improve on current therapy. 2. Hypothyroidism. The patient on Synthroid at home. TSH elevated and free T3 low. As the patient is already on 125 mcg daily of Synthroid, suspect a noncompliance rather than insufficient dose. We will continue Synthroid at 125 mcg a day and consider rechecking TFT's in a few days to reassess. 3. Hypertension. Blood pressure a little on the low side here. Given 1 dose of Lasix in the ED, but I am holding blood pressure medications at this time. We will continue to monitor and consider restarting if blood pressure becomes elevated. 4. Morbid obesity and obstructive sleep apnea. I asked patient to bring her home CPAP. If the patient not able to get her machine up there, we will consider BiPAP at night. 5. Morbid obesity. Patient counseled on diet and exercise. Fatty liver. No need for acute intervention at this time. Continue monitoring. 6. Mood disorder. Continue home medications. 7. Deep vein thrombosis prophylaxis. Chaim.
[2018-09-20] MEDS: TYLENOL PO PRN (20:32)
[2018-09-21] MEDS: SOLU-MEDROL IV SCH ×2 (01:57→13:06)
[2018-09-21] MEDS: DUONEB (A & A) INH SCH ×6 (03:10→23:20)
--- NOTE | 2018-09-21 05:06 | ECHO REPORT ---
ORDER DATE: 09/20/2018 INDICATION: CHF, COPD, morbid obesity. FINDINGS: 1. The right atrium appears normal in size. 2. Trace tricuspid regurgitation. RV systolic pressure of 33. 3. Normal RV size and systolic function. 4. Mild pulmonic insufficiency. 5. Normal left atrial size, with a dimension of 3.8. 6. There appears to be mild mitral valve prolapse of the anterior leaflet. There does appear to be some flow acceleration of the mitral inflow, with a mean gradient of 10.4, peak gradient of 28, and a valve area of 2.1 cm2 by pressure half-time. This would suggest moderate mitral stenosis. Trace mitral regurgitation. 7. Normal LV size. End-diastolic dimension of 4.4. Normal wall thicknesses, with a posterior and interventricular septal wall thickness of 0.8 cm each. Normal LV systolic function. Estimated EF of 60%. 8. Aortic valve opens well. There is mild insufficiency. No stenosis. 9. Aorta appears normal in visualized segments. 10. No pericardial effusion seen. cc: Singh Balderas MD
[2018-09-21 05:57] LABS: HEMATOCRIT 37.3 % (37.0-47.0); HEMOGLOBIN 11.5 g/dL (12.0-16.0); MCH 27.8 PG (27-31); MCHC 30.8 g/dL (33-37); MCV 90.1 FL (81-99); MPV 9.5 FL (7.4-10.4); RBC 4.14 XMIL (4.2-5.4); RDW 15.6 % (11.5-14.5); WBC 16.11 X1000 (4.8-10.8)
[2018-09-21] MEDS: PROTONIX PO SCH (06:15)
[2018-09-21] MEDS: SYNTHROID PO SCH (06:16)
[2018-09-21] MEDS: LOVENOX SUBQ SCH (06:16)
[2018-09-21] MEDS: HUMALOG SUBQ SCH ×4 (06:16→21:34)
[2018-09-21 07:31] LABS: CALCIUM 9.1 mg/dL (8.8-10.2); CREATININE 1.1 mg/dL (0.5-0.9); MAGNESIUM 1.8 mg/dL (1.5-2.7); POTASSIUM 4.1 mmol/L (3.5-5.1)
[2018-09-21] MEDS: REQUIP PO SCH ×3 (08:19→17:51)
[2018-09-21] MEDS: ABILIFY PO SCH (08:19)
[2018-09-21] MEDS: LIPITOR PO SCH (08:19)
[2018-09-21] MEDS: WELLBUTRIN SR PO SCH (08:19)
[2018-09-21] MEDS: ROCEPHIN 1 GM in NS 50 ML IV SCH (11:45)
[2018-09-21] MEDS: ZITHROMAX 500 MG/NS 500 MG/250 ML IVPB IV SCH (13:06)
[2018-09-21] MEDS: TYLENOL PO PRN (21:30)
[2018-09-22] MEDS: DUONEB (A & A) INH SCH ×6 (03:25→23:15)
[2018-09-22] MEDS: TYLENOL PO PRN (03:37)
--- NOTE | 2018-09-22 04:03 | PROGRESS NOTE ---
DATE: 09/21/2018 SUBJECTIVE: The patient continues to have some shortness of breath and cough. She relates some gradual improvement with treatment thus far. OBJECTIVE: Vital Signs: Blood pressure 115/57, heart rate 99 and regular, oxygen saturation 94% on nasal cannula oxygen at 2 L/minute. There is no significant jugular venous distention. Chest: Clear to auscultation, with somewhat diminished breath sounds diffusely. No wheezes are appreciated. Cardiac: Reveals a regular rate and rhythm, without appreciable murmur or gallop. Extremities: Without edema. LABORATORY DATA: Includes a white blood cell count 16.11, hematocrit 37.3, hemoglobin 11.5, platelet count 407,000. Sodium 144, potassium 4.1, chloride 99, carbon dioxide 27, BUN 24, creatinine 1.1. Glucose 146. Initial troponin less than 0.01. Followup troponin less 0.01. Pro B-natriuretic peptide level 185. TSH 41.59. Echocardiography reports normal left ventricular systolic function, without wall motion abnormality evident. Moderate mitral stenosis is again demonstrated. IMPRESSION: 1. Dyspnea. I suspect her present shortness of breath symptoms are more likely related to chronic pulmonary disease, given normal pro B-natriuretic peptide level. 2. Rheumatic mitral valve disorder, with moderate mitral stenosis by echocardiography. 3. Hypothyroidism. TSH is significantly elevated. 4. Chronic obstructive pulmonary disease, requiring home oxygen. 5. Morbid obesity. 6. Probable obstructive sleep apnea. 7. Type 2 diabetes mellitus. 8. Hypertension. 9. Poor compliance with dietary restriction obvious. RECOMMENDATIONS: No further cardiovascular studies appear to be needed at this time. I suspect her clinical presentation is probably more due to pulmonary disease. I will see her further on an as-needed basis. cc: Dakotah Hightower MD
--- NOTE | 2018-09-22 04:57 | Extremity Venous Study ---
PROCEDURE NAME: Venous U/S Bilateral Legs - 09/20/2018 REFERRING PHYSICIAN: Dr. Boyd. INTERPRETING PHYSICIAN: Ryan Anthony MD. REASON FOR STUDY: The patient has shortness of breath. DETAILS OF STUDY: Bilateral lower extremity venous images accomplished. The common femoral, superficial femoral, deep femoral, popliteal, posterior tibial, peroneal, and greater saphenous veins are imaged bilaterally. Doppler is used to evaluate the veins for spontaneity, phasicity, respiratory excursion and distal augmentation. All veins are compressible. No intraluminal clot is seen. cc: MD Sravanthi Sumner PA
--- NOTE | 2018-09-22 05:33 | PROGRESS NOTE ---
DATE: 09/21/2018 SUBJECTIVE: She is lying in bed. No major complaints. Breathing is somewhat improved, but not quite at baseline. OBJECTIVE: Vital Signs: Blood pressure 122/76, heart rate 101, respiratory rate 22, temperature 98.5 degrees, 94% on 2 L. Cardiovascular: Regular rate and rhythm. Pulmonary: Diminished at the bases, but no wheezes, no rales. GI: Soft, nontender, nondistended. Bowel sounds were positive. LABORATORY DATA: White count 16. Hemoglobin and hematocrit 11 and 37. Platelets 407,000. Basic was normal. Creatinine up a bit at 1.1. PROBLEM LIST: 1. Pneumonia. We will continue breathing treatments and antibiotics. We will continue to follow. She is clinically improving. I do not think I would necessarily pursue chest CT at this time. 2. Hypothyroidism. She is on 125 of Synthroid and follow. There may be some noncompliance issues. 3. Hypertension is stable. 4. Morbid obesity. She is on her home CPAP. 5. Disposition. I anticipate possible discharge in next 24 hours. We will continue to follow closely. She is on home oxygen already at 2 L. We will follow. cc: Hamilton Martinez MD
[2018-09-22] MEDS: PROTONIX PO SCH (06:01)
[2018-09-22] MEDS: SYNTHROID PO SCH (06:01)
[2018-09-22] MEDS: LOVENOX SUBQ SCH (06:01)
[2018-09-22] MEDS: HUMALOG SUBQ SCH ×4 (06:35→21:09)
[2018-09-22 06:41] LABS: BASO# 0.01 X1000 (0.0-0.2); BASO% 0.1 % (0.0-0.8); EOS# 0.01 X1000 (0.0-0.7); EOS% 0.1 % (0.0-10.0); HEMOGLOBIN 11.2 g/dL (12.0-16.0); IMM GRAN# 0.05 X1000 (0.0-0.04); IMM GRAN% 0.4 % (0.0-0.5); LYMPH# 1.17 X1000 (1.2-3.4); LYMPH% 9.2 % (20.5-51.1); MCH 27.5 PG (27-31); MCHC 30.3 g/dL (33-37); MCV 90.7 FL (81-99); MONO# 0.35 X1000 (0.11-0.59); MONO% 2.7 % (1.7-9.3); MPV 9.6 FL (7.4-10.4); NEUT# 11.14 X1000 (1.4-6.5); NEUT% 87.5 % (42.2-75.2); PLT 368 X1000 (130-400); RBC 4.08 XMIL (4.2-5.4); WBC 12.73 X1000 (4.8-10.8)
[2018-09-22 06:56] LABS: CALCIUM 9.2 mg/dL (8.8-10.2); POTASSIUM 3.8 mmol/L (3.5-5.1)
[2018-09-22 07:22] LABS: LYMPHS 10 % (21-51); MONO 2 % (1-9); SEGS 88 % (42-75)
[2018-09-22] MEDS: SOLU-MEDROL IV SCH (08:53)
[2018-09-22] MEDS: REQUIP PO SCH ×3 (08:54→16:43)
[2018-09-22] MEDS: LIPITOR PO SCH (08:54)
[2018-09-22] MEDS: WELLBUTRIN SR PO SCH (08:54)
[2018-09-22] MEDS: ABILIFY PO SCH (08:55)
[2018-09-22] MEDS: ROCEPHIN 1 GM in NS 50 ML IV SCH (12:26)
[2018-09-22] MEDS: ZITHROMAX 500 MG/NS 500 MG/250 ML IVPB IV SCH (13:28)
[2018-09-22] MEDS ORDERED: AMBIEN PO PRN (18:29)
--- NOTE | 2018-09-23 00:28 | PROGRESS NOTE ---
DATE: 09/22/2018 SUBJECTIVE: The patient has no major complaints. OBJECTIVE: Vital Signs: Blood pressure is 121/61, heart rate 103, respiratory rate 18, temperature 99.3 degrees, 99% on room air. Cardiovascular: Regular rate and rhythm. Pulmonary: Bilateral breath sounds. Clear to auscultation. GI: Soft, nontender, nondistended. Bowel sounds were positive. PROBLEM LIST: 1. Pneumonia. She is improving. She seems to be doing okay. We will continue antibiotics. Her white count is improving. She is on Rocephin, azithromycin. 2. Hypothyroidism. Stable on her current dose of Synthroid. 3. Hypertension. Also controlled on her current dose. DISPOSITION: I think if she is stable, likely will be able to discharge her home tomorrow. Continue to monitor. cc: Hamilton Martinez MD
[2018-09-23] MEDS: DUONEB (A & A) INH SCH ×3 (03:15→11:11)
[2018-09-23] MEDS: LOVENOX SUBQ SCH (05:47)
[2018-09-23] MEDS: SYNTHROID PO SCH ×2 (05:47→06:17)
[2018-09-23] MEDS: PROTONIX PO SCH ×2 (05:47→06:16)
[2018-09-23] MEDS: TYLENOL PO PRN (05:51)
[2018-09-23] MEDS: HUMALOG SUBQ SCH ×2 (06:16→11:00)
[2018-09-23] MEDS: WELLBUTRIN SR PO SCH (08:32)
[2018-09-23] MEDS: LIPITOR PO SCH (08:32)
[2018-09-23] MEDS: REQUIP PO SCH ×2 (08:33→12:58)
[2018-09-23] MEDS: SOLU-MEDROL IV SCH (08:33)
[2018-09-23] MEDS: ABILIFY PO SCH (08:33)
[2018-09-23] MEDS: ROCEPHIN 1 GM in NS 50 ML IV SCH (12:14)
[2018-09-23] MEDS: ZITHROMAX 500 MG/NS 500 MG/250 ML IVPB IV SCH (13:01)
[2018-09-23 13:08] VITALS: BP 145/68
--- NOTE | 2018-09-24 05:41 | DISCHARGE SUMMARY ---
ADMISSION DATE: 09/20/2018 DISCHARGE DATE: 09/23/2018 DISCHARGE DIAGNOSES: 1. Pneumonia. 2. Chronic obstructive pulmonary disease exacerbation. 3. Hypothyroid. 4. Hypertension. Blood pressure is okay. SUMMARY: Patient examined the day of discharge. She is breathing comfortably. No more major issues. She was admitted. A 53 year old with history of CHF and she is here for chronic obstructive pulmonary disease exacerbation. The patient admitted, placed on breathing treatments. There was also a question of heart failure history and she was treated for that as well. She was placed on low-dose diuretics. Her echocardiogram showed an EF of 60% consistent with, if anything, diastolic dysfunction. Lower extremity venous Dopplers were negative. Dr. Hightower was consulted. He recommended diuresis. D-dimer was negative. In any case, the patient slowly improved. She was weaned down to 2 L a day which was her baseline level of oxygen at home. Dr. Hightower felt that most of this was likely pulmonary and not cardiac. On the , she was breathing comfortably, afebrile. White count was down to 12.7, that was on the day before, and she was felt stable for discharge. DISCHARGE MEDICATIONS: Aripiprazole 10 daily, Lipitor 40 daily, Wellbutrin 300 daily vitamin D2 50,000 units, Synthroid 125 daily, Glucophage 500 daily, Reglan 10 t.i.d., Requip 1 daily, Zanaflex 4 t.i.d., Ceftin 500 q.12 for 7 days, DuoNebs q.6, Advair 250/50 one b.i.d., losartan 25 daily and prednisone taper. INSTRUCTIONS: She will follow up with her PCP in 1 to 2 weeks, who was Enriqueta Cardenas, and [facility]. TIME: 32 minute discharge. cc: Hamilton Martinez MD
== END 2018-09-23 15:48 | disposition home or self-care (01) | DRG 190 ==
LOC: ED 21:42 → 4N 09-20 04:12 → SUATTDRO 09-20 04:12
PROVIDERS: ATTEND Internal Medicine
CPT/HCPCS: 71020; 71046; 80048; 80053; 81001; 82805; 82948; 83735; 83880; 84439; 84443; 84484; 85025; 85027; 85379; 85610; 85730; 87040; 93005; 93010; 93306; 93970; 94640; 94761; 94799; 96374; 96375; 99285; A9270; C8929; J0456; J0696; J1650; J1815; J1940; J2920; J2930; Q9957; XXXXX

== ENCOUNTER 2019-06-03 19:12 | Inpatient (IN) ==
[2019-06-03] MEDS ORDERED: DUONEB (A & A) INH ONE ×2 (19:52→23:09)
[2019-06-03] MEDS ORDERED: SOLU-MEDROL IV ONE (19:54)
--- NOTE | 2019-06-03 19:58 | PROVIDER DOCUMENTATION ---
HPI-Respiratory General - General Chief Complaint: Shortness of Breath Stated Complaint: CAN'T BREATHE Time Seen by Provider: 06/03/19 19:41 Source: patient Allergies/Adverse Reactions: Patient Allergies Allergy/AdvReac Type Severity Reaction Status Date / Time ketorolac tromethamine * Allergy NAUSEA/VOMI Verified 06/03/19 19:35 [From Toradol] TING ondansetron HCl * Allergy NAUSEA/VOMI Verified 06/03/19 19:35 [From Zofran (as TING hydrochloride)] Sulfa (Sulfonamide Allergy yellowing Verified 06/03/19 19:35 Antibiotics) of eyes and skin codeine AdvReac HEADACHE Verified 06/03/19 19:35 morphine AdvReac ITCHING Verified 06/03/19 19:35 Home Medications: Home Medication List Medication Instructions Recorded Confirmed Last Taken Type ATORVAstatin [Lipitor] 40 mg PO DAILY 04/28/17 06/03/19 09/18/18 History Aripiprazole 10 mg PO DAILY 04/28/17 06/03/19 09/18/18 History Levothyroxine [Synthroid] 125 microgm PO DAILY 04/28/17 06/03/19 09/18/18 History Metformin [Glucophage] 500 mg PO DAILY 04/28/17 06/03/19 09/18/18 History Ropinirole [Requip] 1 tab PO TID 04/28/17 06/03/19 09/18/18 History Metoclopramide [Reglan] 10 mg PO TID AC 02/08/18 06/03/19 09/18/18 History Tizanidine [Zanaflex] 4 mg PO TID 02/08/18 06/03/19 09/18/18 History Losartan [Cozaar] 25 mg PO DAILY #60 tab 02/13/18 06/03/19 09/18/18 Rx Albuterol 2.5MG/Ipratrop 0.5MG 3 ml INH RTQ6H #120 neb 09/23/18 06/03/19 Unknown Rx [Duoneb] CefUROXIME [Ceftin] 500 mg PO Q12HR #14 tab 09/23/18 06/03/19 Unknown Rx Fluticasone/Salmeterol [Advair 1 ea IH BID #1 disk.w.dev 09/23/18 06/03/19 Unknown Rx 250-50 Diskus] - History of Present Illness-Resp Nature of Presenting Problem: 54 YO F pmh for COPD presents with increasing ShOB over the past 24 hours. Pt states she was seen here 6 days ago and was treated for COPD exacerbation and was told to f/u with PCP. She states the soonest they could see her was on this coming Tuesday in 5 days. She states she has been using her breathing txs at home but they have not been helping. She is complaining of new onset cold symptoms that is making her ShOB worse. Pt on 2L continuous o2 at home. Onset/Duration: reports: 3 days ago Timing: reports: still present, getting worse Context: denies: recent foreign travel Cough Quality/Degree: reports: moderate Episode Frequency: frequent episodes Current Respiratory Medication Therapy: Initiated albuterol/atrovent inhale Modifying Factors: improves with: albuterol nebulizer Associated Symptoms: reports: cough, flu-like symptoms, shortness of breath, wheezing. denies: chest pain/soreness, dizziness, fever/chills, headache, sore throat Similar Symptoms Previously?: Yes Review of Systems - Adult - REVIEW OF SYSTEMS - ADULT Constitutional: denies: chills, fever, fatique Eyes: reports: no symptoms reported Ears, Nose, Mouth & Throat: reports: no symptoms reported Cardiovascular: denies: chest pain, edema Respiratory: reports: see HPI, cough, shortness of breath, wheezing Gastrointestinal: reports: no symptoms reported Genitourinary: reports: no symptoms reported Musculoskeletal: reports: no symptoms reported Integumentary: reports: no symptoms reported Neurological: reports: no symptoms reported Past History - Adult - PAST MEDICAL HISTORY-ADULT Review of Records: reports: Old Records Reviewed, Medications Reviewed Major Childhood Illnesses: reports: denies history Cardiovascular: reports: CHF, hyperlipidemia Respiratory: reports: COPD Gastrointestinal: reports: denies history, diverticulosis Obstetrical/Gynecological: reports: denies history Genitourinary: reports: denies history, kidney stones Musculoskeletal: reports: denies history Neurological: reports: denies history, other (bipolar; restless leg syndrome) Endocrine/Immune: reports: denies history, Diabetes, thyroid disorder Other Conditions: reports: denies history - PRIOR SURGERIES/PROCEDURES Surgical/Procedure History: reports: appendectomy, cholecystectomy, hysterectomy , tonsillectomy, orthopedic (extremity) (carpal tunnel; R knee). denies: recent surgery - IMMUNIZATION STATUS Childhood Immunizations: See Nurse Assessment Flu Vaccine: See Nurse Assessment - FAMILY HISTORY Family History: reviewed, not pertinent - SOCIAL HISTORY Smoking: quit less than 1 year (5 mos ago) Substance Use: denies Physical Exam-General - PHYSICAL EXAM-ADULT Initial Vital Signs Reviewed: Yes - CONSTITUTIONAL General Appearance: alert, mild distress - EYES Eyes: PERRL/EOMI, pink conjunctivae - NECK Neck: full range of motion, supple - RESPIRATORY Respiratory: wheezing. negative: accessory muscle use, stridor - CARDIOVASCULAR Cardiovascular: tachycardia - GASTROINTESTINAL (ABDOMEN) Abdominal Exam: non tender, soft - MUSCULOSKELETAL Extremity: normal range of motion, normal gait, normal inspection - SKIN Integumentary: normal color, normal turgor, warm/dry - NEUROLOGIC Neurologic: grossly normal - PSYCHIATRIC Psych/Mental Status: normal mood/affect, oriented x 3 Progress - PLAN OF CARE/RESULTS Progress/Plan/Lab Results: Vital Signs - 8 hr 06/03/19 19:15 06/03/19 19:30 06/03/19 19:31 Temperature 99.1 F Pulse Rate 116 H 97 H 101 H Respiratory Rate 18 15 21 Blood Pressure 121/72 109/64 O2 Sat by Pulse Oximetry 95 06/03/19 19:45 06/03/19 20:05 06/03/19 20:15 Temperature Pulse Rate 101 H 102 H 95 H Respiratory Rate 19 19 Blood Pressure O2 Sat by Pulse Oximetry 96 06/03/19 20:30 06/03/19 20:35 06/03/19 20:45 Temperature Pulse Rate 95 H 95 H 100 H Respiratory Rate 19 22 21 Blood Pressure O2 Sat by Pulse Oximetry 97 95 99 06/03/19 20:56 06/03/19 21:00 06/03/19 21:15 Temperature Pulse Rate 96 H 97 H 100 H Respiratory Rate 22 22 Blood Pressure 141/71 O2 Sat by Pulse Oximetry 99 100 99 06/03/19 21:30 06/03/19 21:45 06/03/19 21:54 Temperature Pulse Rate 102 H 92 H 96 H Respiratory Rate 20 20 Blood Pressure 141/71 O2 Sat by Pulse Oximetry 95 95 94 L 06/03/19 22:00 Temperature Pulse Rate 91 H Respiratory Rate 19 Blood Pressure O2 Sat by Pulse Oximetry 06/03/19 20:22 Influenza Screen - Final Nasopharyngeal Laboratory Results - last 24 hr 06/03/19 06/03/19 06/03/19 20:45 20:45 20:45 WBC 12.32 H RBC 4.24 Hgb 11.2 L Hct 37.1 MCV 87.5 MCH 26.4 L MCHC 30.2 L RDW Std Deviation 17.0 H Plt Count 363 MPV 9.7 Immature Gran % (Auto) 0.4 Neut % (Auto) 77.5 H Lymph % (Auto) 13.9 L [place] % (Auto) 5.0 Eos % (Auto) 2.8 Baso % (Auto) 0.4 Immature Gran # (Auto) 0.05 H Neut # (Auto) 9.55 H Lymph # (Auto) 1.71 [place] # (Auto) 0.62 H Eos # (Auto) 0.34 Baso # (Auto) 0.05 Sodium 143 Potassium 3.9 Chloride 102 Carbon Dioxide 29 Anion Gap 12 BUN 13 Creatinine 0.9 Estimated GFR/1.73 m2 > 60 BUN/Creatinine Ratio 14 Glucose 100 Calculated Osmolality 285 Calcium 8.8 Total Bilirubin 0.22 AST 13 ALT 15 Alkaline Phosphatase 102 Troponin T < 0.010 Total Protein 6.3 Albumin 3.9 Globulin 2.4 Albumin/Globulin Ratio 1.6 TSH 06/03/19 20:45 WBC RBC Hgb Hct MCV MCH MCHC RDW Std Deviation Plt Count MPV Immature Gran % (Auto) Neut % (Auto) Lymph % (Auto) [place] % (Auto) Eos % (Auto) Baso % (Auto) Immature Gran # (Auto) Neut # (Auto) Lymph # (Auto) [place] # (Auto) Eos # (Auto) Baso # (Auto) Sodium Potassium Chloride Carbon Dioxide Anion Gap BUN Creatinine Estimated GFR/1.73 m2 BUN/Creatinine Ratio Glucose Calculated Osmolality Calcium Total Bilirubin AST ALT Alkaline Phosphatase Troponin T Total Protein Albumin Globulin Albumin/Globulin Ratio TSH 11.48 H Orders Category Date Time Status CHEST-2 VIEWS [RAD] Stat Exams 06/03/19 19:52 Completed CBC WITH ELECTRONIC DIFF [HEME] Stat Lab 06/03/19 20:45 Completed COMPREHENSIVE METABOLIC PANEL [CHEM] Stat Lab 06/03/19 20:45 Completed Flu Swab [INFLUENZA SCREEN A/B] Stat Lab 06/03/19 20:22 Completed TROPONIN T Stat Lab 06/03/19 20:45 Completed TSH Stat Lab 06/03/19 20:45 Completed Acetaminophen [Tylenol] Med 06/03/19 21:16 Discontinued 500 mg PO NOW ONE Albuterol 2.5MG/Ipratrop 0.5MG [Duoneb (A & A)] Med 06/03/19 23:09 Discontinued 3 ml INH NOW ONE Albuterol 2.5MG/Ipratrop 0.5MG [Duoneb (A & A)] Med 06/03/19 19:52 Discontinued 9 ml INH NOW ONE Azithromycin [Zithromax] Med 06/03/19 22:18 Discontinued 500 mg PO NOW ONE Methylprednisolone Sod Succ [Solu-Medrol] Med 06/03/19 19:54 Discontinued 125 mg IV NOW ONE Aerosol Treatments Routine Oth 06/03/19 19:53 Completed Aerosol Treatments Routine Oth 06/03/19 23:09 Active Aerosol Treatments Stat Oth 06/03/19 19:53 Completed Aerosol Treatments Stat Oth 06/03/19 23:09 Active Oxygen Device Stat Oth 06/03/19 19:57 Completed EKG [EKG] Stat Ther 06/03/19 19:17 Draft EKG [EKG] Stat Ther 06/03/19 22:18 Ordered Result Diagrams: 06/03/19 20:45 06/03/19 20:45 - REASSESSMENT Reassessment #1 Time Reassessed: 21:17 Status: improving (pt states her wheezing is still present. currently on first breathing tx. just received steroids. c/o headache. will give tylenol.) - XRAY 1 XRAY Study: Chest Impression: Normal, See EMR Report (HISTORY: SOB TECHNIQUE: Chest two views COMPARISON: 05/28/2019 FINDINGS: The lungs are well expanded. The heart is not enlarged. The vessels are not distended. There are no infiltrates. No pleural effusions. IMPRESSION: No acute abnormality. Electronically signed by Jun Salamanca 06/03/2019 8:33 PM) Comparison with other Films: no changes (from 05/28/19) - CONSULTS/PCP/HOSPITALIST Notification #1 *Consult/PCP/Hospitalist*: Dr. Escudero Time Discussed: 23:45 Consult Disposition: Will see in ED Departure - Departure Date of Disposition Decision: 06/03/19 Time of Disposition Decision: 23:07 DIAGNOSIS: COPD exacerbation, COPD (chronic obstructive pulmonary disease) Disposition: ADMITTED INPATIENT 09 Certified Medical Emergency: Emergent Condition: Stable Referrals and Follow-Ups: Enriqueta Godinez MD [Primary Care Provider] - - Critical Care Note This patient required my direct & personal management of CC.: No Attestation - Physician/ LOI Attestation The physician spent face to face time with patient:: Yes Advanced Practice Provider documentation review:: Supervising physician onsite and consulted in the evaluation and care of this patient. The physician did have a face to face encounter with the patient.
--- NOTE | 2019-06-03 20:35 | Diag Imaging Result Doc PS360 ---
EXAM: CHEST-2 VIEWS HISTORY: SOB TECHNIQUE: Chest two views COMPARISON: 05/28/2019 FINDINGS: The lungs are well expanded. The heart is not enlarged. The vessels are not distended. There are no infiltrates. No pleural effusions. IMPRESSION: No acute abnormality. Electronically signed by Jun Salamanca 06/03/2019 8:33 PM
--- NOTE | 2019-06-03 20:52 | EKG Report ---
Test Performed on : 06/03/2019 7:18:45 PM Test Reason : sob Blood Pressure : / mmHG Vent. Rate : 105 BPM Atrial Rate : 105 BPM P-R Int : 142 ms QRS Dur : 078 ms QT Int : 334 ms P-R-T Axes : 063 089 067 degrees QTc Int : 441 ms Sinus tachycardia. Biatrial enlargement Abnormal ECG When compared with ECG of 28-MAY-2019 15:40, (Unconfirmed) No significant change was found Unconfirmed Result
[2019-06-03 20:58] LABS: BASO# 0.05 X1000 (0.0-0.2); BASO% 0.4 % (0.0-0.8); EOS# 0.34 X1000 (0.0-0.7); EOS% 2.8 % (0.0-10.0); HEMATOCRIT 37.1 % (37.0-47.0); HEMOGLOBIN 11.2 g/dL (12.0-16.0); IMM GRAN# 0.05 X1000 (0.0-0.04); IMM GRAN% 0.4 % (0.0-0.5); LYMPH# 1.71 X1000 (1.2-3.4); LYMPH% 13.9 % (20.5-51.1); MCH 26.4 PG (27-31); MCHC 30.2 g/dL (33-37); MCV 87.5 FL (81-99); MONO# 0.62 X1000 (0.11-0.59); MPV 9.7 FL (7.4-10.4); NEUT# 9.55 X1000 (1.4-6.5); NEUT% 77.5 % (42.2-75.2); PLT 363 X1000 (130-400); RBC 4.24 XMIL (4.2-5.4); WBC 12.32 X1000 (4.8-10.8)
[2019-06-03] MEDS ORDERED: TYLENOL PO ONE (21:16)
[2019-06-03 21:20] LABS: AGAP 12; ALB/GLOB RATIO 1.6; ALBUMIN 3.9 g/dL (3.5-5.0); ALKALINE PHOSPHATASE 102 U/L (32-104); BUN 13 mg/dL (8-22); CALCIUM 8.8 mg/dL (8.8-10.2); CHLORIDE 102 mmol/L (98-107); COSMO 285; CREATININE 0.9 mg/dL (0.5-0.9); ESTIMATED GFR > 60; GLUCOSE 100 mg/dL (70-104); GOT 13 U/L (10-30); GPT 15 U/L (10-36); POTASSIUM 3.9 mmol/L (3.5-5.1); SODIUM 143 mmol/L (136-145); TCO2 29 mmol/L (25-35); TOTAL BILIRUBIN 0.22 mg/dL (0.20-1.00); TOTAL PROTEIN 6.3 g/dL (6.3-8.3)
[2019-06-03] MEDS ORDERED: ZITHROMAX PO ONE (22:18)
[2019-06-04 01:19] LABS: ALLEN TEST YES; BE 5.8 mmoll (-3.0-3.0); BLOOD TYPE ARTERIAL; HCO3-(ACT) 29.4 mmoll (20.0-26.0); METHB 0.8 % (0.0-1.5); O2(CT) 14.7 mL/dL (15.0-23.0); O2HB 95.9 % (95.0-99.0); PO2(98.6) 167 mmHg (60-100); SAMPLE BLOOD; SAO2 99.8 % (95.0-100.0); THB 10.6 g/dL (11.5-17.4)
[2019-06-04 01:20] LABS: MODALITY CANNULA; PCO2(98.6) 51 mmHg (35-45)
[2019-06-04] MEDS ORDERED: ZOFRAN IV PRN (04:05)
[2019-06-04] MEDS: TYLENOL PO PRN ×2 (05:06→18:18)
[2019-06-04] MEDS: SOLU-MEDROL IV SCH ×3 (05:06→21:11)
[2019-06-04] MEDS: SYNTHROID PO SCH ×2 (05:06→06:01)
--- NOTE | 2019-06-04 05:19 | HISTORY AND PHYSICAL ---
PRIMARY CARE PHYSICIAN: Dr. Enriqueta Godinez. CHIEF COMPLAINT: Shortness of breath x1 week. HISTORY OF PRESENTING ILLNESS: A 54-year-old obese female with a history of COPD, hypertension, diabetes mellitus type 2, obstructive sleep apnea and hypothyroidism had presented to the emergency department with a 1-week history of progressive worsening shortness of breath. The patient states that she was having difficulty breathing. Subsequently had come to the emergency department. In the ED, she was evaluated and patient was desaturating and had to be put on supplemental oxygen. During her course in the ED she was having further difficulty and becoming bradycardic at times and subsequently it was thought that she would possibly need to be put on a BiPAP. She will require admission for further management. At the time of my examination, patient denied any headache, fever, chills, chest pain, hemoptysis or weight changes, but complained of shortness of breath. The patient is a poor historian due to her present condition. PAST MEDICAL HISTORY: Includes COPD, hypertension, diabetes mellitus type 2, obstructive sleep apnea, hypothyroidism. PAST SURGICAL HISTORY: Right multiple knee surgeries, appendectomy, cholecystectomy, hysterectomy and bilateral carpal tunnel. ALLERGIES: Morphine, sulfa, Zofran, Toradol. CURRENT MEDICATIONS: Include DuoNebs q.6 hours, aripiprazole 10 mg p.o. daily, atorvastatin 40 mg p.o. daily, levothyroxine 125 mcg p.o. daily, losartan 25 mg p.o. daily, metformin 500 mg p.o. daily, Requip dose unknown, Zanaflex 4 mg p.o. t.i.d. SOCIAL HISTORY: She is a former smoker. Denies any history of alcohol or illicit drug use. FAMILY HISTORY: No history of coronary artery disease. REVIEW OF SYSTEMS: Fourteen point review of system as listed in HPI. Other systems negative. PHYSICAL EXAMINATION: GENERAL: Cooperative, friendly, obese female. She is in some mild to moderate respiratory distress. She is having difficulty completing full sentences. VITAL SIGNS: Temperature 99.1 degrees, pulse 116, respiration 18, blood pressure 121/72. HEENT: Atraumatic, normocephalic. Extraocular movements intact. PERRLA. NECK: No masses. CHEST: Decreased breath sounds. CARDIOVASCULAR: Regular rate and rhythm. ABDOMEN: Soft, obese, positive bowel sounds. EXTREMITIES: +1 edema. NEUROLOGIC: She is awake, alert, oriented x2. GENITOURINARY: No bladder distention. SKIN: Warm. LABORATORIES AND STUDIES: WBC 12.32, hemoglobin 11.2, hematocrit 37.1, platelets 363,000. Sodium 143, potassium 3.9, chloride 102, CO2 is 29, BUN is 13, creatinine 0.9, glucose 100. Chest x-ray, no acute abnormality. ASSESSMENT: A 54-year-old obese female with a history of chronic obstructive pulmonary disease, hypertension, diabetes mellitus type 2 and obstructive sleep apnea had presented to the emergency department with a 1-week history of progressive worsening shortness of breath. She was evaluated in the emergency department. She was found to be in COPD exacerbation. Subsequently, she will require admission for further management. 1. Acute chronic obstructive pulmonary disease exacerbation. 2. Hypertension. 3. Diabetes mellitus type 2. 4. Obstructive sleep apnea. PLAN: 1. We will admit patient to PVC. 2. Continue with DuoNebs, IV Solu-Medrol, IV antibiotics. 3. We will place patient on BiPAP. 4. We will obtain ABGs. 5. Monitor blood pressure closely. Resume antihypertensive agent. 6. We will monitor blood glucose and put patient on sliding scale insulin regimen. 7. We will put patient on DVT prophylaxis with SCDs. 8. We will continue to follow, and reassess and make further recommendation based on patient's clinical course. cc: Lg Escudero MD
[2019-06-04] MEDS: HUMULIN R SUBQ SCH ×4 (06:01→21:12)
[2019-06-04] MEDS: DUONEB (A & A) INH SCH ×5 (08:00→23:18)
[2019-06-04] MEDS: LIPITOR PO SCH (08:33)
[2019-06-04] MEDS: ABILIFY PO SCH (08:33)
[2019-06-04] MEDS: REQUIP PO SCH ×3 (08:33→21:12)
--- NOTE | 2019-06-04 16:52 | PROGRESS NOTE ---
DATE: 06/04/2019 SUBJECTIVE: Ms. Perea was admitted early this morning. She is a patient of Dr. Enriqueta Cardenas. A 54-year-old presented with shortness of breath for 1 week. She has a history of COPD, hypertension, diabetes mellitus type 2, obstructive sleep apnea, hypothyroidism, presented to the emergency department with 1-week history of progressive worsening shortness of breath. The patient states she was having difficulty breathing for some time. Subsequently, came to the emergency room, was evaluated. She desaturated and was put on supplementary O2. During the course in the emergency room, was having further difficulty and had some bradycardia and subsequent was thought to possibly need to be put on a BiPAP and so was admitted. PAST MEDICAL HISTORY: Includes COPD, hypertension, diabetes mellitus type 2, obstructive sleep apnea, hypothyroidism. PAST SURGICAL HISTORY: On the right she has had multiple knee surgeries, appendectomy, cholecystectomy, hysterectomy, bilateral carpal tunnel syndrome. PHYSICAL EXAMINATION: Today she says she is breathing better and feels better. Temp 97.8 degrees, pulse 92, respirations 16, blood pressure 124/70. Pupils are equal. No distended neck veins. Lungs are clear in all lung agee. Cardiovascular regular rate without murmur or S3. Urine output was over 1000 mL. Last 2 blood sugars 145, 162. LAB: Reviewed from yesterday, white count 12,320, hematocrit 37 platelet count 363,000. Chemistry sodium 143, potassium 3.9, chloride 102, BUN 13, creatinine 0.9, blood sugar 145, 204, 162. ASSESSMENT AND PLAN: 1. Acute chronic obstructive pulmonary disease exacerbation, underlying chronic obstructive pulmonary disease with some bronchospasm. Continue supplementary oxygen. I do not see evidence of infection. Her chest x-ray from yesterday: No acute abnormality. No sign of infiltrates. So at present time, she is getting albuterol ipratropium 3 mL q.4 hours while awake and she is on methylprednisone 60 mg IV q.8 hours to help with bronchospasm. Started on azithromycin 500 mg, got 1 dose in the emergency room. 2. History of hypothyroidism. She is on Synthroid 125 mcg daily. Appears to be euthyroid. 3. We will continue her Abilify. I believe that was for depression. 4. Continue to follow sugars for diabetes. Sugars appear under pretty good control. Her hemoglobin A1c I think it would be worthwhile checking. Note that her TSH was 11.48, so I am going to check a T4 TSH with morning lab, check hemoglobin A1c as well. Seems to be improving. cc: Yanick Guzman MD
[2019-06-05] MEDS: DUONEB (A & A) INH SCH ×7 (03:28→23:30)
[2019-06-05] MEDS: SYNTHROID PO SCH (06:13)
[2019-06-05] MEDS: SOLU-MEDROL IV SCH ×4 (06:13→21:03)
[2019-06-05] MEDS: HUMULIN R SUBQ SCH ×4 (06:21→20:22)
[2019-06-05 07:18] LABS: BASO# 0.01 X1000 (0.0-0.2); BASO% 0.1 % (0.0-0.8); HEMATOCRIT 35.7 % (37.0-47.0); HEMOGLOBIN 10.4 g/dL (12.0-16.0); IMM GRAN# 0.09 X1000 (0.0-0.04); IMM GRAN% 0.5 % (0.0-0.5); LYMPH# 0.76 X1000 (1.2-3.4); LYMPH% 4.4 % (20.5-51.1); MCHC 29.1 g/dL (33-37); MCV 89.3 FL (81-99); MONO% 1.7 % (1.7-9.3); MPV 10.3 FL (7.4-10.4); NEUT# 16.07 X1000 (1.4-6.5); NEUT% 93.3 % (42.2-75.2); PLT 343 X1000 (130-400); RDW 16.4 % (11.5-14.5); WBC 17.23 X1000 (4.8-10.8)
[2019-06-05 07:32] LABS: HEMOGLOBIN A1C 5.6 % (4.8-6.0)
[2019-06-05 07:41] LABS: FREE T4 0.91 ng/dL (0.93-1.70); TSH 1.67 uIUmL (0.27-4.20)
[2019-06-05 07:55] LABS: BANDS 6 % (0-1); LYMPHS 6 % (21-51); SEGS 88 % (42-75)
[2019-06-05] MEDS: LIPITOR PO SCH (08:19)
[2019-06-05] MEDS: REQUIP PO SCH ×3 (08:20→20:21)
[2019-06-05] MEDS: ABILIFY PO SCH (08:20)
[2019-06-05] MEDS: TYLENOL PO PRN ×2 (11:45→20:28)
[2019-06-05] MEDS ORDERED: DUONEB (A & A) INH PRN (13:00)
--- NOTE | 2019-06-05 13:26 | PROGRESS NOTE ---
DATE: 06/05/2019 SUBJECTIVE: Patient has no major complaints. OBJECTIVE: Blood pressure is stable at 125/73, heart rate of 75, respiratory rate of 20, temperature 97.7 degrees. Cardiovascular: Regular rate and rhythm. Pulmonary: Bilateral breath sounds clear to auscultation. GI: Soft, nontender, nondistended. Bowel sounds were positive. She still has some diminished breath sounds, some end-expiratory wheezes on pulmonary exam. Laboratory Data: White count is 17, hemoglobin and hematocrit 10 and 35, platelets of 343,000. Her A1c is only 5.1. Her free T4 is a little bit low. PROBLEM LIST: 1. Acute chronic obstructive pulmonary disease exacerbation. Patient is doing okay. She is on oxygen. Chest x-ray is clear. She does have a white count. She was placed on azithromycin. I may just continue doxy and see how she does. 2. Hypothyroidism. She has a low total T4 but a normal TSH. We will continue to monitor. This may be a sick euthyroid kind of level. 3. Disposition, pending clinical status. I think she is probably stable to go the floor. 4. Anemia. She does appear to be folate deficient so we will start that supplementation and follow. cc: Hamilton Martinez MD
[2019-06-05] MEDS: FOLIC ACID 1 MG in NS 50 ML IV SCH (14:38)
[2019-06-06] MEDS: DUONEB (A & A) INH SCH ×6 (03:34→23:38)
[2019-06-06] MEDS: HUMULIN R SUBQ SCH ×4 (06:08→20:52)
[2019-06-06] MEDS: SYNTHROID PO SCH (06:13)
[2019-06-06] MEDS: SOLU-MEDROL IV SCH ×4 (06:13→21:35)
[2019-06-06] MEDS: LOVENOX SUBQ SCH (06:13)
[2019-06-06 07:13] LABS: BASO# 0.01 X1000 (0.0-0.2); BASO% 0.1 % (0.0-0.8); HEMOGLOBIN 10.3 g/dL (12.0-16.0); IMM GRAN# 0.19 X1000 (0.0-0.04); IMM GRAN% 1.2 % (0.0-0.5); LYMPH# 1.02 X1000 (1.2-3.4); LYMPH% 6.2 % (20.5-51.1); MCH 25.8 PG (27-31); MCHC 28.6 g/dL (33-37); MONO# 0.52 X1000 (0.11-0.59); MONO% 3.2 % (1.7-9.3); MPV 10.4 FL (7.4-10.4); NEUT# 14.68 X1000 (1.4-6.5); NEUT% 89.3 % (42.2-75.2); PLT 338 X1000 (130-400); RDW 16.8 % (11.5-14.5); WBC 16.42 X1000 (4.8-10.8)
[2019-06-06 07:41] LABS: AGAP 14; BUN 24 mg/dL (8-22); CHLORIDE 100 mmol/L (98-107); COSMO 282; CREATININE 0.9 mg/dL (0.5-0.9); ESTIMATED GFR > 60; GLUCOSE 138 mg/dL (70-104); POTASSIUM 4.4 mmol/L (3.5-5.1); SODIUM 138 mmol/L (136-145); TCO2 24 mmol/L (25-35)
[2019-06-06] MEDS: REQUIP PO SCH ×3 (08:02→20:52)
[2019-06-06] MEDS: ABILIFY PO SCH (08:02)
[2019-06-06] MEDS: LIPITOR PO SCH (08:02)
[2019-06-06 08:27] LABS: BANDS 4 % (0-1); LYMPHS 8 % (21-51); MONO 2 % (1-9); SEGS 86 % (42-75)
[2019-06-06] MEDS: FOLIC ACID 1 MG in NS 50 ML IV SCH (14:06)
[2019-06-06] MEDS: FOLIC ACID PO SCH (16:13)
[2019-06-06] MEDS: TYLENOL PO PRN (16:13)
--- NOTE | 2019-06-06 18:27 | PROGRESS NOTE ---
DATE: 06/06/2019 SUBJECTIVE: The patient is up and walking, seems to be doing okay. OBJECTIVE: Blood pressure is 136/54, heart rate 75, respiratory rate of 20, saturations are 100% on 3 L.Cardiovascular: Regular rate and rhythm. Pulmonary: Bilateral breath sounds. Clear to auscultation. Gastrointestinal: Soft, nontender, nondistended. Bowel sounds are positive. LABORATORY DATA: BUN and creatinine of 24 and 0.9. White count still up, 16,000 but she is on steroids. PROBLEM LIST: 1. Acute chronic obstructive pulmonary disease exacerbation. We will continue treatment. She is on breathing treatments. She is on steroids. I am going to add probably some Advair to see if we can try to get her breathing a little bit better. 2. Folic acid deficiency. We will continue to supplement folate. I think we can give it p.o. and see how we do. 3. Hypothyroidism is stable. I would recommend follow up levels in 3 to 4 weeks. DISPOSITION: I think she is stable to go the floor and then anticipate possible discharge in the next 1 to 2 days. I am not sure if she may not require some oxygen. We will kind of see how things look. cc: Hamilton Martinez MD
[2019-06-06] MEDS: ADVAIR 250/50 DISKUS INH SCH (19:40)
[2019-06-06] MEDS ORDERED: NORCO-7.5 PO ONE (21:52)
[2019-06-07] MEDS: DUONEB (A & A) INH SCH ×6 (03:37→23:28)
[2019-06-07] MEDS: SYNTHROID PO SCH (06:26)
[2019-06-07] MEDS: LOVENOX SUBQ SCH (06:26)
[2019-06-07] MEDS: HUMULIN R SUBQ SCH ×4 (06:26→20:21)
[2019-06-07] MEDS: SOLU-MEDROL IV SCH ×2 (06:26→17:06)
[2019-06-07 06:52] LABS: BASO# 0.01 X1000 (0.0-0.2); BASO% 0.1 % (0.0-0.8); HEMATOCRIT 35.5 % (37.0-47.0); HEMOGLOBIN 10.2 g/dL (12.0-16.0); IMM GRAN# 0.24 X1000 (0.0-0.04); IMM GRAN% 1.7 % (0.0-0.5); LYMPH# 1.22 X1000 (1.2-3.4); LYMPH% 8.4 % (20.5-51.1); MCHC 28.7 g/dL (33-37); MCV 90.6 FL (81-99); MONO# 0.46 X1000 (0.11-0.59); MONO% 3.2 % (1.7-9.3); MPV 10.4 FL (7.4-10.4); NEUT# 12.51 X1000 (1.4-6.5); NEUT% 86.6 % (42.2-75.2); PLT 316 X1000 (130-400); RBC 3.92 XMIL (4.2-5.4); WBC 14.44 X1000 (4.8-10.8)
[2019-06-07 07:23] LABS: AGAP 12; BUN 26 mg/dL (8-22); CALCIUM 9.2 mg/dL (8.8-10.2); CHLORIDE 105 mmol/L (98-107); COSMO 293; CREATININE 0.9 mg/dL (0.5-0.9); ESTIMATED GFR > 60; GLUCOSE 125 mg/dL (70-104); POTASSIUM 4.6 mmol/L (3.5-5.1); SODIUM 144 mmol/L (136-145); TCO2 27 mmol/L (25-35)
[2019-06-07] MEDS: FOLIC ACID PO SCH (08:08)
[2019-06-07] MEDS: ABILIFY PO SCH (08:09)
[2019-06-07] MEDS: LIPITOR PO SCH (08:09)
[2019-06-07] MEDS: REQUIP PO SCH ×3 (08:10→20:21)
[2019-06-07] MEDS: ADVAIR 250/50 DISKUS INH SCH ×2 (08:14→19:23)
--- NOTE | 2019-06-07 13:01 | PROGRESS NOTE ---
DATE: 06/07/2019 SUBJECTIVE: Patient reports still having some shortness of breath. Denies any other complaints. OBJECTIVE: Vital Signs: Temperature 97.6 degrees, heart rate 74, respiratory rate 18, blood pressure 149/84. O2 saturation 100% on 3 L nasal cannula. General: This is a 54-year-old female lying in bed, in no acute distress. Cardiovascular: S1, S2 heard. No murmurs, gallops, or rubs. Regular rate and rhythm. Respiratory: Minimal wheezing noted in both pulmonary bases. Patient is not using any accessory muscles or having work of breathing. Abdomen: Soft. Nontender to palpation. Bowel sounds present. No organomegaly. Extremities: No clubbing, cyanosis, or edema. Peripheral pulses present in both legs. Neurological: The patient is alert and oriented x3. Moves 4 extremities. LABORATORY DATA: Reviewed. ASSESSMENT AND PLAN: 1. Acute respiratory failure secondary to chronic obstructive pulmonary disease exacerbation. At this point, the patient reports feeling better but is still not completely fine, so at this point, we will keep her in the hospital. We will reduce the amount of steroids to Solu-Medrol 40 mg IV q. 12 hours. White cell count is slightly elevated. Advair has been added to her current treatment. We will continue to monitor. 2. Folic acid deficiency. We will continue to supplement folate. 3. Hypothyroidism. Will continue home doses of levothyroxine. 4. Disposition: I think at this point, this patient is stable. She can be sent to a regular floor and she may be discharged within the next 24 to 48 hours. cc: Gurwinder Warner MD
[2019-06-07] MEDS: ULTRAM PO PRN ×2 (14:21→21:20)
[2019-06-08] MEDS: DUONEB (A & A) INH SCH ×6 (03:11→23:28)
[2019-06-08] MEDS: LOVENOX SUBQ SCH (06:11)
[2019-06-08] MEDS: SOLU-MEDROL IV SCH ×2 (06:11→18:19)
[2019-06-08] MEDS: HUMULIN R SUBQ SCH ×4 (06:11→21:55)
[2019-06-08] MEDS: SYNTHROID PO SCH (06:11)
[2019-06-08 06:39] LABS: AGAP 12; BUN 23 mg/dL (8-22); CALCIUM 9.1 mg/dL (8.8-10.2); CHLORIDE 103 mmol/L (98-107); COSMO 287; CREATININE 0.9 mg/dL (0.5-0.9); ESTIMATED GFR > 60; GLUCOSE 104 mg/dL (70-104); POTASSIUM 4.3 mmol/L (3.5-5.1); SODIUM 142 mmol/L (136-145); TCO2 27 mmol/L (25-35)
[2019-06-08 06:57] LABS: BASO# 0.01 X1000 (0.0-0.2); BASO% 0.1 % (0.0-0.8); EOS# 0.01 X1000 (0.0-0.7); EOS% 0.1 % (0.0-10.0); HEMATOCRIT 36.6 % (37.0-47.0); HEMOGLOBIN 10.5 g/dL (12.0-16.0); IMM GRAN# 0.58 X1000 (0.0-0.04); LYMPH# 1.54 X1000 (1.2-3.4); LYMPH% 10.6 % (20.5-51.1); MCHC 28.7 g/dL (33-37); MCV 90.6 FL (81-99); MONO# 0.56 X1000 (0.11-0.59); MONO% 3.9 % (1.7-9.3); MPV 10.4 FL (7.4-10.4); NEUT# 11.83 X1000 (1.4-6.5); NEUT% 81.3 % (42.2-75.2); PLT 318 X1000 (130-400); RBC 4.04 XMIL (4.2-5.4); RDW 16.9 % (11.5-14.5); WBC 14.53 X1000 (4.8-10.8)
[2019-06-08] MEDS: ADVAIR 250/50 DISKUS INH SCH ×2 (07:50→19:57)
[2019-06-08 08:01] LABS: BANDS 2 % (0-1); LYMPHS 22 % (21-51); SEGS 76 % (42-75)
[2019-06-08] MEDS: FOLIC ACID PO SCH (08:01)
[2019-06-08] MEDS: ABILIFY PO SCH (08:01)
[2019-06-08] MEDS: REQUIP PO SCH ×3 (08:01→21:56)
[2019-06-08] MEDS: LIPITOR PO SCH (08:01)
[2019-06-08 08:02] LABS: HYPOCHROM 2+
--- NOTE | 2019-06-08 09:49 | PROGRESS NOTE ---
DATE: 06/08/2019 SUBJECTIVE: Ms. Perea says she is breathing better, doing a little better. She feels like her right lung is still not fully expanded. OBJECTIVE: Vital signs: She remains afebrile, temperature 97.6, pulse 90, respirations 20, blood pressure 132/70. HEENT: Pupils are equal and round. Lungs: Clear in all lung agee. Cardiovascular exam: Regular rhythm and rate without murmur or S3. Abdomen: Soft. Skin: Warm and dry. Urine output is 1700 mL. ASSESSMENT AND PLAN: 1. Acute respiratory failure secondary to chronic obstructive pulmonary disease exacerbation. At this point, the patient feels better, still improving. Will reduce the amount of steroids, Solu-Medrol is down to 40 mg IV q.12. White blood cell count was slightly elevated. Advair was added to her current treatment as well as her beta agonist, bronchodilators. 2. Folic acid deficiency. Continue folate. 3. Hypothyroidism. Continue dose of levothyroxine. 4. Patient is better. ORDERS: Lipitor 40 mg daily, Abilify 10 mg daily, folic acid 1 mg daily, levothyroxine 125 mcg p.o. daily, methylprednisone 40 mg q.12, Requip 1 mg p.o. t.i.d., Ultram 50 mg q.6 hours. Continue present treatment. LABORATORY: Lab today, white count 14,530, hematocrit is 36, platelet count 318,000. Chemistry: Sodium 142, potassium 4.3, chloride 103, BUN 26, creatinine 0.9. cc: Yanick Guzman MD
[2019-06-09] MEDS: ULTRAM PO PRN ×3 (00:27→20:45)
[2019-06-09] MEDS: DUONEB (A & A) INH SCH ×6 (03:30→23:30)
[2019-06-09] MEDS: SYNTHROID PO SCH (06:24)
[2019-06-09] MEDS: SOLU-MEDROL IV SCH ×2 (06:24→17:01)
[2019-06-09] MEDS: LOVENOX SUBQ SCH (06:24)
[2019-06-09] MEDS: HUMULIN R SUBQ SCH ×4 (06:24→20:46)
[2019-06-09] MEDS: ADVAIR 250/50 DISKUS INH SCH ×2 (08:11→19:21)
[2019-06-09] MEDS: ABILIFY PO SCH (09:39)
[2019-06-09] MEDS: REQUIP PO SCH ×3 (09:39→20:45)
[2019-06-09] MEDS: LIPITOR PO SCH (09:40)
[2019-06-09] MEDS: FOLIC ACID PO SCH (09:41)
--- NOTE | 2019-06-09 09:55 | PROGRESS NOTE ---
DATE: 06/09/2019 SUBJECTIVE: Ms. Perea is breathing better. She does feel stronger. She says she is working on trying to get her CPAP at home but eating well. Bowels are moving. OBJECTIVE: Vital signs: Temperature 98.6 degrees, pulse 86, respirations 22, blood pressure 127/60. HEENT: Pupils are equal round. Lungs: Clear in all lung agee. Cardiovascular: Regular rhythm and rate without murmur or S3. Abdomen: Soft. Skin: Warm and dry. Extremities: No pedal edema. Blood sugars 103, 145, 159. ASSESSMENT AND PLAN: 1. Acute respiratory failure secondary to chronic obstructive pulmonary disease and bronchospasm and obstructive sleep apnea. She is doing better. Continue her Solu-Medrol. I think we can cut that down to 20 mg IV q.12, and white count is still elevated secondary to steroids. 2. Folic acid deficiency. Continue folate. 3. Hypothyroidism. 4. Nutrition is good. 5. I do not see any change other than we will decrease the methylprednisone. cc: Yanick Guzman MD
[2019-06-10] MEDS: DUONEB (A & A) INH SCH ×5 (03:11→19:25)
[2019-06-10] MEDS: HUMULIN R SUBQ SCH ×3 (06:31→17:50)
[2019-06-10] MEDS: SYNTHROID PO SCH (06:32)
[2019-06-10] MEDS: LOVENOX SUBQ SCH (06:32)
[2019-06-10] MEDS: SOLU-MEDROL IV SCH ×2 (06:32→18:57)
[2019-06-10] MEDS: ADVAIR 250/50 DISKUS INH SCH ×2 (08:06→19:26)
[2019-06-10] MEDS: LIPITOR PO SCH (08:51)
[2019-06-10] MEDS: ABILIFY PO SCH (08:51)
[2019-06-10] MEDS: FOLIC ACID PO SCH (08:51)
[2019-06-10] MEDS: REQUIP PO SCH ×3 (08:51→21:29)
--- NOTE | 2019-06-10 10:20 | PROGRESS NOTE ---
DATE: 06/10/2019 SUBJECTIVE: The patient remains afebrile. She was sleeping, resting comfortably. No trouble with her breathing. She had a CPAP on. OBJECTIVE: Vital Signs: Temperature 97.3 degrees, pulse 79, respirations 22, blood pressure 121/68. HEENT: Pupils are equal round. Lungs: Clear in all lung agee. Cardiovascular: Regular rhythm and rate without murmur or S3. Abdomen: Soft. Skin: Warm and dry blood. LABORATORY DATA: Blood sugar 159, 156, 96. ASSESSMENT/PLAN: 1. Acute respiratory failure secondary to chronic obstructive pulmonary disease, bronchospasm, obstructive sleep apnea, and obstructive lung disease. Continue her present Solu-Medrol. We did cut it down to 20 mg q.12. She is improving. Hopefully can go home tomorrow. 2. Folic acid deficiency. Continue folate. 3. Hypothyroidism. 4. Nutrition is good. I do not see any change in orders. cc: Yanick Guzman MD
[2019-06-10] MEDS: ULTRAM PO PRN (21:33)
[2019-06-11] MEDS: DUONEB (A & A) INH SCH ×4 (00:10→11:51)
[2019-06-11] MEDS: HUMULIN R SUBQ SCH ×3 (04:08→11:38)
[2019-06-11] MEDS: SOLU-MEDROL IV SCH (06:13)
[2019-06-11] MEDS: SYNTHROID PO SCH (06:14)
[2019-06-11] MEDS: LOVENOX SUBQ SCH (06:16)
[2019-06-11 08:08] VITALS: BP 127/69
[2019-06-11] MEDS: FOLIC ACID PO SCH (08:09)
[2019-06-11] MEDS: REQUIP PO SCH ×2 (08:09→14:18)
[2019-06-11] MEDS: LIPITOR PO SCH (08:09)
[2019-06-11] MEDS: ABILIFY PO SCH (08:09)
[2019-06-11] MEDS: ADVAIR 250/50 DISKUS INH SCH (08:28)
--- NOTE | 2019-06-11 10:19 | DISCHARGE SUMMARY ---
ADMISSION DATE: 06/04/2019 DISCHARGE DATE: 06/11/2019 HISTORY OF PRESENT ILLNESS: She is followed by Dr. Enriqueta Cardenas. A 54-year-old, obese female with a history of COPD, hypertension, diabetes mellitus type 2, obstructive sleep apnea, and hypothyroidism, who presented to the emergency department with a one-week history of progressive worsening shortness of breath. The patient states she was having difficulty breathing. Subsequently came to the emergency department. In the ED, was evaluated. Patient was desaturating, had to be put on supplemental oxygen. During the course of workup in the emergency room, had bradycardia. Subsequently thought to possibly need to be put on BiPAP. She was put on BiPAP and admitted to the hospital. PAST MEDICAL HISTORY: 1. COPD. 2. Hypertension. 3. Diabetes mellitus type 2. 4. Obstructive sleep apnea. 5. Hypothyroidism. PAST SURGICAL HISTORY: 1. Right multiple knee surgeries. 2. Appendectomy. 3. Cholecystectomy. 4. Hysterectomy. 5. Bilateral carpal tunnel. ALLERGIES: Morphine, sulfa, Zofran, and Toradol. ADMISSION DIAGNOSES: 1. Acute exacerbation of chronic obstructive pulmonary disease. 2. Obstructive sleep apnea. 3. History of hypertension. 4. Diabetes mellitus type 2. HOSPITAL COURSE: The patient was put on BiPAP and bronchodilators, and seemed to show steady improvement. We were able to taper down the steroids. She did have folic acid deficiency which we supplemented. She felt she was ready to go home on 06/11/2019. DISCHARGE MEDICATIONS: She has oxygen at home. She will take her Abilify 10 mg a day, Lipitor 40 mg a day, Advair 250/50 one puff twice a day, folic acid 1 mg daily, Synthroid 125 mcg daily, and we will put on prednisone 10 mg a day for another 30 days, ropinirole which is Requip 1 mg t.i.d., and Ultram 50 mg q.6 hours p.r.n. pain. FOLLOWUP: She will follow up with her primary care and she is in the process of trying to get her CPAP. cc: Yanick Guzman MD
[2019-06-11] MEDS ORDERED: FLU VACCINE IM ONE (12:03)
== END 2019-06-11 14:25 | disposition home health service (06) | DRG 191 ==
LOC: ED 19:12 → 2N 06-04 03:14 → SUATTDRO 06-04 03:14 → 3N 06-08 09:30
PROVIDERS: ATTEND Emergency Medicine

== ENCOUNTER 2019-10-29 16:14 | Inpatient (IN) ==
[2019-10-29] MEDS ORDERED: DUONEB (A & A) INH ONE (16:45)
[2019-10-29] MEDS ORDERED: PULMICORT INH ONE (16:45)
--- NOTE | 2019-10-29 16:49 | PROVIDER DOCUMENTATION ---
HPI-Respiratory General - General Chief Complaint: Shortness of Breath Stated Complaint: SHORTNESS OF BREATH/KIDNEY PAIN Time Seen by Provider: 10/29/19 16:33 Source: patient Allergies/Adverse Reactions: Patient Allergies Allergy/AdvReac Type Severity Reaction Status Date / Time Sulfa (Sulfonamide Allergy yellowing Verified 06/03/19 19:35 Antibiotics) of eyes and skin codeine AdvReac HEADACHE Verified 06/03/19 19:35 ketorolac tromethamine * AdvReac NAUSEA/VOMI Verified 10/30/19 12:06 [From Toradol] TING morphine AdvReac ITCHING Verified 06/03/19 19:35 ondansetron HCl * AdvReac HEADACHE Verified 10/30/19 12:06 [From Zofran (as hydrochloride)] Home Medications: Home Medication List Medication Instructions Recorded Confirmed Last Taken Type Aripiprazole 10 mg PO DAILY 04/28/17 10/30/19 09/18/18 History Metformin [Glucophage] 500 mg PO DAILY@1700 04/28/17 10/30/19 09/18/18 History Losartan [Cozaar] 25 mg PO DAILY #60 tab 02/13/18 10/30/19 09/18/18 Rx Budesonide/Formoterol Fumarate 2 puff INH BID@0900,2100 10/30/19 10/30/19 Unknown History [Symbicort 160-4.5 Mcg Inhaler] Furosemide [Lasix] 40 mg PO DAILY 10/30/19 10/30/19 Unknown History Levothyroxine [Synthroid] 150 microgm PO DAILY@0600 10/30/19 10/30/19 Unknown History PRAVAstatin [Pravachol] 80 mg PO QHS 10/30/19 10/30/19 Unknown History Ropinirole [Requip] 1 mg PO QHS 10/30/19 10/30/19 Unknown History Sertraline HCl 50 mg PO DAILY 10/30/19 10/30/19 Unknown History Tamsulosin [Flomax] 0.4 mg PO DAILY 30 Days #30 cap 11/02/19 Unknown Rx - History of Present Illness-Resp Nature of Presenting Problem: 54 YO F pmh for COPD on continuous o2 of 2 L presents with worsening SOB x 3 days not made better with nebulizer tx. Also with c/o b/l flank pain x 1 day. She has hx of renal stones. Timing: reports: still present, getting worse Context: denies: recent foreign travel Exposure: reports: unknown cause Cough Quality/Degree: reports: moderate Episode Frequency: frequent episodes Modifying Factors: improves with: nothing Associated Symptoms: reports: cough, shortness of breath, short of breath, wheezing. denies: fever/chills, headache, hurts to breathe, muscle/bodyaches, nasal congestion, sore throat, sweaty Similar Symptoms Previously?: Yes Recently seen or treated by another doctor?: No Review of Systems - Adult - REVIEW OF SYSTEMS - ADULT Constitutional: denies: chills, fever Eyes: reports: no symptoms reported Ears, Nose, Mouth & Throat: reports: no symptoms reported Cardiovascular: denies: chest pain, palpitations, syncope Respiratory: reports: see HPI, cough, dyspnea on exertion, shortness of breath, wheezing Gastrointestinal: reports: see HPI, abdominal pain Genitourinary: reports: see HPI, flank pain Musculoskeletal: reports: no symptoms reported Integumentary: reports: no symptoms reported Neurological: reports: no symptoms reported Psychiatric: reports: no symptoms reported Endocrine: reports: no symptoms reported Hematologic/Lymphatic: reports: no symptoms reported Allergic/Immunologic: reports: no symptoms reported Past History - Adult - PAST MEDICAL HISTORY-ADULT Review of Records: reports: Old Records Reviewed, Medications Reviewed, Social history reviewed & non-contributory. Major Childhood Illnesses: reports: denies history Cardiovascular: reports: CHF, hyperlipidemia Respiratory: reports: COPD Gastrointestinal: reports: denies history, diverticulosis Obstetrical/Gynecological: reports: denies history Genitourinary: reports: denies history, kidney stones Musculoskeletal: reports: denies history Neurological: reports: denies history, other (bipolar; restless leg syndrome) Endocrine/Immune: reports: denies history, Diabetes, thyroid disorder Other Conditions: reports: denies history - PRIOR SURGERIES/PROCEDURES Surgical/Procedure History: reports: appendectomy, cholecystectomy, hysterectomy , tonsillectomy, orthopedic (extremity) (carpal tunnel; R knee). denies: recent surgery - IMMUNIZATION STATUS Childhood Immunizations: See Nurse Assessment Flu Vaccine: See Nurse Assessment - FAMILY HISTORY Family History: reviewed, not pertinent - SOCIAL HISTORY Living Situation: family Physical Exam-General - PHYSICAL EXAM-ADULT Initial Vital Signs Reviewed: Yes - CONSTITUTIONAL General Appearance: alert, mild distress (mild respiratory distress), obese - EYES Eyes: pink conjunctivae, anisocoria - HEAD, EARS, NOSE, MOUTH & THROAT HENMT: moist mucous membranes, normal ENT inspection - NECK Neck: supple - RESPIRATORY Respiratory: respiratory distress (mild) - CARDIOVASCULAR Cardiovascular: regular rate, rhythm - GASTROINTESTINAL (ABDOMEN) Abdominal Exam: non tender, soft, other (obese). negative: rigid, rebound, tenderness - MUSCULOSKELETAL Extremity: normal range of motion, normal gait - SKIN Integumentary: normal color, normal turgor, warm/dry - NEUROLOGIC Neurologic: grossly normal - PSYCHIATRIC Psych/Mental Status: normal mood/affect, oriented x 3 Progress - PLAN OF CARE/RESULTS Progress/Plan/Lab Results: Orders Category Date Time Status Admit - [facility] Routine AdmDCTranf 10/29/19 23:38 Active Activity - Up with Assistance ORDERED Care 10/29/19 23:38 Completed FSBS/Accucheck Result AC + HS Care 10/29/19 23:38 Completed Intake and Output-Strict ORDERED Care 10/29/19 23:38 Completed NEWS Score >or=5:Order NEWS Bundle S.O. NOW Care 10/29/19 16:22 Completed Saline Loc NOW Care 10/29/19 16:44 Completed Use Oxygen.Protocol ORDERED Care 10/29/19 16:46 Completed Vital Signs Order Q 4-HR ASSESS Care 10/29/19 23:38 Completed Z-Document. for Tele Applied ORDERED Care 10/29/19 23:38 Completed Diabetic Diet Diet 10/29/19 23:38 Completed CHEST-2 VIEWS [RAD] Stat Exams 10/29/19 16:[address] ABDOMEN/PELVIS W/O CONTRAST [CT] Stat Exams 10/29/19 16:47 Completed ABG [RESP] Routine Lab 10/29/19 17:30 Completed BASIC METABOLIC PANEL [CHEM] Routine Lab 10/30/19 07:26 Completed CBC WITH DIFF [HEME] Routine Lab 10/30/19 07:26 Completed CBC WITH ELECTRONIC DIFF [HEME] Stat Lab 10/29/19 17:33 Completed COMPREHENSIVE METABOLIC PANEL [CHEM] Stat Lab 10/29/19 17:33 Completed D-DIMER [COAG] Stat Lab 10/29/19 17:33 Completed INFLUENZA SCREEN A/B Stat Lab 10/29/19 17:39 Completed MAGNESIUM [CHEM] Stat Lab 10/29/19 17:33 Completed PRO B-NATRIURETIC PEPTIDE Stat Lab 10/29/19 17:33 Completed TROPONIN T HIGH SENSITIVITY Stat Lab 10/29/19 17:33 Completed URINALYSIS W/POSS RFLX CULT [URINALYSIS] Stat Lab 10/29/19 21:35 Completed Acetaminophen [Tylenol] Med 10/29/19 18:57 Discontinued 500 mg PO NOW ONE Albuterol 2.5MG/Ipratrop 0.5MG [Duoneb (A & A)] Med 10/29/19 16:45 Discontinued 3 ml INH NOW ONE Albuterol 2.5MG/Ipratrop 0.5MG [Duoneb (A & A)] Med 10/29/19 23:38 Discontinued 3 ml INH RTQ4H Budesonide [Pulmicort] Med 10/29/19 16:45 Discontinued 0.5 mg INH NOW ONE Enoxaparin [Lovenox] Med 10/30/19 09:00 Discontinued 40 mg SUBQ Q24H Furosemide [Lasix] Med 10/29/19 22:02 Discontinued 40 mg IV NOW ONE Insulin Human Regular [Humulin R] Med 10/30/19 07:00 Discontinued See Protocol SUBQ 0700,1100,1600,2100 Ketorolac [Toradol] Med 10/29/19 18:57 Discontinued 30 mg IV NOW ONE Levalbuterol Neb [Xopenex Neb] Med 10/29/19 20:37 Discontinued 1.25 mg INH NOW ONE Methylprednisolone Sod Succ [Solu-Medrol] Med 10/29/19 16:51 Discontinued 125 mg IV NOW ONE Methylprednisolone Sod Succ [Solu-Medrol] Med 10/29/19 23:38 Discontinued 60 mg IV Q8H Promethazine [Phenergan] Med 10/29/19 18:58 Discontinued 12.5 mg IV NOW ONE Sodium Chloride 0.9% Med 10/29/19 18:58 Discontinued 10 ml INJ NOW ONE Sodium Chloride 0.9% Neb [Ns Neb] Med 10/29/19 20:45 Discontinued 5 ml INH DIRECTED Tamsulosin [Flomax] Med 10/29/19 18:59 Discontinued 0.4 mg PO NOW ONE Aerosol Treatments Routine Oth 10/29/19 16:45 Completed Aerosol Treatments Routine Oth 10/29/19 20:38 Completed Aerosol Treatments Routine Oth 10/29/19 23:38 Completed Aerosol Treatments Stat Oth 10/29/19 16:45 Completed Aerosol Treatments Stat Oth 10/29/19 20:38 Completed Aerosol Treatments Stat Oth 10/29/19 23:38 Completed CPAP Routine Oth 10/29/19 23:38 Active Exercise Tolerance With O2 Stat Oth 10/29/19 21:18 Completed Telemetry [OM.EQ] Routine Oth 10/29/19 23:38 Active EKG [EKG] Stat Ther 10/29/19 16:44 Draft Transfer/Admit Order [TRANSFER] Routine Transfer 10/29/19 21:57 Completed Result Diagrams: 10/30/19 07:26 10/30/19 07:26 - REASSESSMENT Reassessment #1 Time Reassessed: 21:47 Status: unchanged (pt states she is still not feeling well. spoke with hospitalist, will admit. plans for d-dimer lab. will speak with urology for renal stone.) - XRAY 1 XRAY Study: Chest Impression: Abnormal, See EMR Report (HISTORY: SOB, CHF TECHNIQUE: COMPARISON: 06/03/2019 FINDINGS: The lungs are well expanded. The heart is mildly prominent. Mild central vascular distention. There are no infiltrates. No pleural effusions. IMPRESSION: Mildly prominent heart with mild pulmonary edema Electronically signed by Jun Salamanca 10/29/2019 5:00 PM) - CT/MRI 1 CT Study: Abdomen, Pelvis Impression: Abnormal, See EMR Report (EXAM: CT ABDOMEN/PELVIS W/O CONTRAST HISTORY: flank pain TECHNIQUE: CT abdomen and pelvis without oral or intr avenous contrast COMPARISON: 10/26/2019 FINDINGS: The liver is prominent and there is fatty infiltration. The gallbladder has been removed. No splenomegaly. No inflammation about the pancreas. Normal adrenal glands. There is a 6 x 7 x 8 mm stone in the upper right ureter at the ureterovesical pelvic junction. This previously was in the lower pole of the right kidney. Mild distention to the fadi al pelvis. There is also cortical calcification on the right. Tiny nonobstructing left renal stone. Previously there was a stone in the distal right ureter. This is no longer present. Mild atherosclerosis. No aortic aneurysm. No bowel obstruction. There are scattered colonic diverticula. No inflammation about the cecum. No abscess. Urinary bladder is only mildly distended. The uterus is been removed. No pelvic mass. IMPRESSION: 1.Stone at the right ureteropelvic junction with mild distention of the renal pelvis 2.Nonobstructing left renal stone 3.Cholecystectomy 4.Hepatomegaly with fatty infiltration 5.Hysterectomy 6.Colonic diverticulosis This exam was performed using automated exposure control, adjustment of mA or kV according to patient size, and/or use of iterative reconstruction technique. Electronically signed by Jun Salamanca 10/29/2019 5:10 PM) - CONSULTS/PCP/HOSPITALIST Notification #1 *Consult/PCP/Hospitalist*: Dr. Escudero Time Discussed: 21:48 Consult Disposition: Will see in ED, Admit Departure - Departure Date of Disposition Decision: 10/29/19 Time of Disposition Decision: 17:59 DIAGNOSIS: CHF exacerbation, Respiratory distress, Ureterolithiasis Disposition: ADMITTED INPATIENT 09 Certified Medical Emergency: Emergent Condition: Stable - Critical Care Note This patient required my direct & personal management of CC.: No Attestation - Physician/ LOI Attestation Patient care was provided by Advanced Practice Provider:: No The physician spent face to face time with patient:: Yes Advanced Practice Provider documentation review:: Supervising physician onsite and consulted in the evaluation and care of this patient. The physician did have a face to face encounter with the patient.
[2019-10-29] MEDS ORDERED: SOLU-MEDROL IV ONE (16:51)
--- NOTE | 2019-10-29 17:02 | Diag Imaging Result Doc PS360 ---
EXAM: CHEST-2 VIEWS HISTORY: SOB, CHF TECHNIQUE: COMPARISON: 06/03/2019 FINDINGS: The lungs are well expanded. The heart is mildly prominent. Mild central vascular distention. There are no infiltrates. No pleural effusions. IMPRESSION: Mildly prominent heart with mild pulmonary edema Electronically signed by Jun Salamanca 10/29/2019 5:00 PM
--- NOTE | 2019-10-29 17:12 | Diag Imaging Result Doc PS360 ---
EXAM: CT ABDOMEN/PELVIS W/O CONTRAST HISTORY: flank pain TECHNIQUE: CT abdomen and pelvis without oral or intravenous contrast COMPARISON: 10/26/2019 FINDINGS: The liver is prominent and there is fatty infiltration. The gallbladder has been removed. No splenomegaly. No inflammation about the pancreas. Normal adrenal glands. There is a 6 x 7 x 8 mm stone in the upper right ureter at the ureterovesical pelvic junction. This previously was in the lower pole of the right kidney. Mild distention to the renal pelvis. There is also cortical calcification on the right. Tiny nonobstructing left renal stone. Previously there was a stone in the distal right ureter. This is no longer present. Mild atherosclerosis. No aortic aneurysm. No bowel obstruction. There are scattered colonic diverticula. No inflammation about the cecum. No abscess. Urinary bladder is only mildly distended. The uterus is been removed. No pelvic mass. IMPRESSION: 1.Stone at the right ureteropelvic junction with mild distention of the renal pelvis 2.Nonobstructing left renal stone 3.Cholecystectomy 4.Hepatomegaly with fatty infiltration 5.Hysterectomy 6.Colonic diverticulosis This exam was performed using automated exposure control, adjustment of mA or kV according to patient size, and/or use of iterative reconstruction technique. Electronically signed by Jun Salamanca 10/29/2019 5:10 PM
[2019-10-29 17:46] LABS: BASO# 0.03 X1000 (0.0-0.2); BASO% 0.3 % (0.0-0.8); EOS% 2.8 % (0.0-10.0); HEMATOCRIT 40.3 % (37.0-47.0); HEMOGLOBIN 12.1 g/dL (12.0-16.0); IMM GRAN# 0.05 X1000 (0.0-0.04); IMM GRAN% 0.5 % (0.0-0.5); LYMPH# 1.78 X1000 (1.2-3.4); LYMPH% 16.7 % (20.5-51.1); MCH 25.6 PG (27-31); MCV 85.4 FL (81-99); MONO# 0.55 X1000 (0.11-0.59); MONO% 5.2 % (1.7-9.3); MPV 9.8 FL (7.4-10.4); NEUT# 7.94 X1000 (1.4-6.5); NEUT% 74.5 % (42.2-75.2); PLT 321 X1000 (130-400); RBC 4.72 XMIL (4.2-5.4); RDW 18.3 % (11.5-14.5); WBC 10.65 X1000 (4.8-10.8)
[2019-10-29 17:48] LABS: ALLEN TEST YES; BE 2.3 mmoll (-3.0-3.0); BLOOD TYPE ARTERIAL; HCO3-(ACT) 26.7 mmoll (20.0-26.0); METHB 0.9 % (0.0-1.5); O2(CT) 17.1 mL/dL (15.0-23.0); O2HB 95.5 % (95.0-99.0); PCO2(98.6) 32 mmHg (35-45); PO2(98.6) 153 mmHg (60-100); SAMPLE BLOOD; SAO2 99.8 % (95.0-100.0); THB 12.5 g/dL (11.5-17.4)
[2019-10-29 17:49] LABS: MODALITY CANNULA
[2019-10-29 18:11] LABS: AGAP 12; ALB/GLOB RATIO 1.3; ALBUMIN 3.8 g/dL (3.5-5.0); ALKALINE PHOSPHATASE 108 U/L (32-104); BUN 15 mg/dL (8-22); CALCIUM 9.2 mg/dL (8.8-10.2); CHLORIDE 104 mmol/L (98-107); COSMO 280; CREATININE 0.9 mg/dL (0.5-0.9); ESTIMATED GFR > 60; GLUCOSE 98 mg/dL (70-104); GOT 21 U/L (10-30); GPT 27 U/L (10-36); POTASSIUM 4.3 mmol/L (3.5-5.1); SODIUM 140 mmol/L (136-145); TCO2 24 mmol/L (25-35); TOTAL BILIRUBIN 0.25 mg/dL (0.20-1.00); TOTAL PROTEIN 6.7 g/dL (6.3-8.3)
--- NOTE | 2019-10-29 18:44 | EKG Report ---
Test Performed on : 10/29/2019 4:23:34 PM Test Reason : CP Blood Pressure : / mmHG Vent. Rate : 089 BPM Atrial Rate : 089 BPM P-R Int : 150 ms QRS Dur : 076 ms QT Int : 362 ms P-R-T Axes : 052 084 049 degrees QTc Int : 440 ms Normal sinus rhythm. Possible Left atrial enlargement Borderline ECG When compared with ECG of 03-JUN-2019 19:18, No significant change was found Unconfirmed Result
[2019-10-29] MEDS ORDERED: TORADOL IV ONE (18:57)
[2019-10-29] MEDS ORDERED: TYLENOL PO ONE (18:57)
[2019-10-29] MEDS ORDERED: PHENERGAN IV ONE (18:58)
[2019-10-29] MEDS ORDERED: SODIUM CHLORIDE 0.9% INJ ONE (18:58)
[2019-10-29] MEDS ORDERED: FLOMAX PO ONE (18:59)
[2019-10-29] MEDS ORDERED: XOPENEX NEB INH ONE (20:37)
[2019-10-29] MEDS ORDERED: NS NEB INH SCH (20:45)
[2019-10-29 21:45] LABS: URINE SOURCE CLEAN CATCH
[2019-10-29 21:49] LABS: BILIRUBIN URINE NEGATIVE (NEGATIVE); BLOOD URINE NEGATIVE (NEGATIVE); COLOR YELLOW; GLUCOSE URINE NEGATIVE (NEGATIVE); KETONE URINE NEGATIVE (NEGATIVE); LEUKOCYTES URINE NEGATIVE (NEGATIVE); NITRITE URINE NEGATIVE (NEGATIVE); PROTEIN URINE TRACE mg/dL (NEGATIVE); TURBIDITY URINE CLEAR (CLEAR); UROBILINOGEN URINE NORMAL (NORMAL)
[2019-10-29 21:50] LABS: UR EPITHELIAL CELLS <10 /HPF (<10); URINE BACTERIA NEGATIVE /HPF; URINE RBC <10 /HPF (<10); URINE WBC <10 /HPF (<10)
[2019-10-29] MEDS ORDERED: LASIX IV ONE (22:02)
--- NOTE | 2019-10-29 23:06 | HISTORY AND PHYSICAL ---
PRIMARY CARE PHYSICIAN: Dr. Enriqueta Godinez. CHIEF COMPLAINT: Shortness of breath for 3 days. HISTORY OF PRESENTING ILLNESS: A 54-year-old obese female with a history of COPD, hypertension, diabetes mellitus type 2, obstructive sleep apnea and hypothyroidism, who presented to emergency department with 3 days history of worsening shortness of breath. The patient states that she felt like she was being smothered and could not take deep breaths. She was evaluated in the emergency department. It was suspected was having exacerbation of her COPD. Subsequently she will require admission for further management. At ED she was given nebulizer treatment and put on supplemental oxygen and she only had some mild improvement. At the time of my examination, she denied any headache, fever, chills, nausea, vomiting, diarrhea, hemoptysis, melena, but complained of shortness of breath and not feeling well. PAST MEDICAL HISTORY: Includes COPD, hypertension, diabetes mellitus type 2, obstructive sleep apnea, hypothyroidism. PAST SURGICAL HISTORY: Bilateral knee surgery, appendectomy, cholecystectomy, hysterectomy, bilateral carpal tunnel surgery. ALLERGIES: Morphine, ketorolac, sulfa, Zofran. CURRENT MEDICATIONS: Include albuterol, duo nebs q.6 hours, atorvastatin 40 mg p.o. daily, folic acid 1 mg p.o. daily, [place] 5 one p.o. q.6 hours, levothyroxine 125 mcg p.o. daily, losartan 25 mg p.o. daily, metformin 500 mg p.o. daily, Requip 1 mg p.o. t.i.d., tizanidine 4 mg p.o. t.i.d. SOCIAL HISTORY: She is a former smoker. Denies any history of alcohol or illicit drug use. FAMILY HISTORY: No history of coronary disease. REVIEW OF SYSTEMS: Fourteen point review of systems is as in HPI. Other systems negative physical. PHYSICAL EXAMINATION: GENERAL: Cooperative, friendly female. She is resting more comfortably now. VITAL SIGNS: Temperature 98.1 degrees, pulse 96, respirations 32, blood pressure 145/70. HEENT: Atraumatic, normocephalic. Extraocular movements intact. PERRLA. NECK: No masses. CHEST: Scattered wheezes. CARDIOVASCULAR: Regular rate and rhythm. ABDOMEN: Soft, obese. Positive bowel sounds. EXTREMITIES: Trace edema. NEUROLOGIC: She is awake, alert, oriented x3. : No bladder distention. SKIN: Warm. LABORATORIES AND STUDIES: WBC 10.65, hemoglobin 12.1, hematocrit 40.3, platelets 321,000. Sodium 140, potassium 4.3, chloride 104, CO2 is 24, BUN is 15, creatinine 0.9, glucose is 98. Chest x- ray shows some mild pulmonary edema. ASSESSMENT: This is a 54-year-old female with a history of chronic obstructive pulmonary disease, hypertension, diabetes mellitus type 2 and obstructive sleep apnea, who had presented to emergency department with 3 days history of persistent shortness of breath. She was evaluated in the emergency department. Due to presenting symptoms she will require admission for further management. 1. Acute chronic obstructive pulmonary disease exacerbation. 2. Hypertension. 3. Diabetes mellitus type 2. 4. Obstructive sleep apnea. PLAN: 1. We will admit patient to medical floor with telemetry. 2. We will continue with duo nebs, IV Solu-Medrol. 3. Monitor blood pressure closely. Resume antihypertensive agent. 4. Monitor blood glucose. Put patient on sliding scale insulin regimen. 5. We will obtain her CPAP machine. 6. We will put patient on DVT prophylaxis with SCD. 7. We will continue to follow, reassess and make further recommendation based on patient's clinical course. cc: Lg Escudero MD
[2019-10-29] MEDS: DUONEB (A & A) INH SCH (23:59)
[2019-10-30] MEDS: SOLU-MEDROL IV SCH ×4 (00:39→18:33)
[2019-10-30] MEDS: DUONEB (A & A) INH SCH ×6 (03:46→23:18)
[2019-10-30 07:36] LABS: HEMATOCRIT 41.2 % (37.0-47.0); HEMOGLOBIN 12.3 g/dL (12.0-16.0); IMM GRAN# 0.05 X1000 (0.0-0.04); IMM GRAN% 0.5 % (0.0-0.5); LYMPH# 0.64 X1000 (1.2-3.4); LYMPH% 5.8 % (20.5-51.1); MCH 25.3 PG (27-31); MCHC 29.9 g/dL (33-37); MCV 84.8 FL (81-99); MONO# 0.04 X1000 (0.11-0.59); MONO% 0.4 % (1.7-9.3); MPV 9.8 FL (7.4-10.4); NEUT# 10.28 X1000 (1.4-6.5); NEUT% 93.3 % (42.2-75.2); PLT 336 X1000 (130-400); RBC 4.86 XMIL (4.2-5.4); RDW 17.9 % (11.5-14.5); WBC 11.01 X1000 (4.8-10.8)
[2019-10-30] MEDS: HUMULIN R SUBQ SCH ×4 (07:42→21:03)
[2019-10-30 07:58] LABS: BANDS 4 % (0-1); LYMPHS 8 % (21-51); SEGS 88 % (42-75)
[2019-10-30 08:09] LABS: AGAP 10; BUN 19 mg/dL (8-22); CALCIUM 9.4 mg/dL (8.8-10.2); CHLORIDE 102 mmol/L (98-107); COSMO 279; CREATININE 0.9 mg/dL (0.5-0.9); ESTIMATED GFR > 60; GLUCOSE 157 mg/dL (70-104); POTASSIUM 4.9 mmol/L (3.5-5.1); SODIUM 137 mmol/L (136-145); TCO2 25 mmol/L (25-35)
--- NOTE | 2019-10-30 08:52 | PROGRESS NOTE ---
DATE: 10/30/2019 Ms. Perea was admitted yesterday 10/29/2019 yesterday evening. Her doctor is Dr. Enriqueta Cardenas. She presented with shortness of breath she has had for about 3 days. Denies any fever. No swelling in her feet. No chest pain. She has a history of COPD on home oxygen with chronic hypoxemia, hypertension, diabetes mellitus type 2, obstructive sleep apnea, and hypothyroidism. Presented to the emergency department with a 3-day history of worsening shortness of breath. The patient states she felt like she was smothering, could not take a deep breath. In the emergency room, given nebulized treatment and put on supplemental oxygen. ALLERGIES: Morphine, ketorolac, sulfa, and Zofran. PAST MEDICAL HISTORY: Includes COPD, hypertension, diabetes mellitus type 2, obstructive sleep apnea and hypotension, obesity. So admitted with acute chronic obstructive pulmonary disease exacerbation, hypertension, diabetes, and obstructive sleep apnea. She states she is feeling better. She was sitting up beside the bed about to eat her breakfast, talking on the phone. OBJECTIVE: Vital Signs: Temperature 98.1 degrees, pulse 77, respirations 22, blood pressure 146/76. HEENT: Pupils are equal and round. Lungs: Are clear in all lung agee. Cardiovascular: Regular rhythm and rate without murmur or S3. Abdomen: Is soft. Skin: Is warm and dry. REVIEW OF LAB WORK: [place] count was [address], hematocrit 41, platelet count 336,000. Sodium 137, potassium 4.9, chloride 102, BUN 19, creatinine 0.9. Urinalysis unremarkable. Blood gases when she arrived yesterday, pH was 7.50, pCO2 of 32, and PO2 was 153, that was on 28% nasal cannula. REVIEW OF HER ORDERS: Getting albuterol ipratropium 3 mL inhalation q.4 hours. She is on Lovenox 40 mg subcutaneous q.24 hours for DVT prophylaxis. On Pulmicort 0.5 mg inhalation, she got 1 dose. She is on methylprednisone. She was given 1 dose of 125 mg. She is complaining of some lower back pain. She was given some Flomax 0.4 mg daily or given 1 dose in the emergency room. Her lab: Urine was unremarkable. No elevation of white blood cell count. So I am going to put her on Symbicort 2 puffs twice a day and will give her Solu-Medrol at 60 mg IV q.8 hours. Looking back at her, I saw they did an abdominal CT. Abdominal pelvic CT showed a stone in the right ureteropelvic junction with mild distention in the renal pelvis, nonobstructing left renal stone, status post cholecystectomy, hepatomegaly with fatty infiltration, status post hysterectomy and colon diverticulosis. Chest x-ray, mild prominent heart, mild pulmonary edema. So we will give her Lasix 40 mg q.a.m. and I will put her on some Symbicort steroid inhaler with long-acting beta agonist. cc: Yanick uGzman MD
[2019-10-30] MEDS: LOVENOX SUBQ SCH (09:52)
[2019-10-30] MEDS: LASIX IV SCH ×2 (09:54→20:58)
[2019-10-30] MEDS: PHENERGAN IV PRN (12:21)
[2019-10-30] MEDS: SODIUM CHLORIDE 0.9% INJ ONE (12:21)
[2019-10-30] MEDS: TORADOL IV PRN (12:21)
[2019-10-30] MEDS: SYMBICORT 160/4.5 MICROGM INHALER INH SCH (19:40)
--- NOTE | 2019-10-30 20:49 | Diag Imaging Result Doc PS360 ---
CHEST-PORTABLE - 10/30/2019 INDICATION: COPD exacerbation COMPARISON: 10/29/2019 FINDINGS: There is cardiomegaly and pulmonary vascular congestion. No definite pulmonary edema. No large pleural effusion. IMPRESSION: Cardiomegaly and pulmonary vascular congestion. Electronically signed by Lee Khan 10/30/2019 8:47 PM
[2019-10-31] MEDS: SOLU-MEDROL IV SCH ×3 (00:34→15:29)
[2019-10-31] MEDS: SODIUM CHLORIDE 0.9% INJ ONE (00:34)
[2019-10-31] MEDS: TORADOL IV PRN ×2 (00:34→12:40)
[2019-10-31] MEDS ORDERED: SODIUM CHLORIDE 0.9% 10 ML ONE (00:37)
[2019-10-31] MEDS: DUONEB (A & A) INH SCH ×6 (03:56→23:50)
[2019-10-31] MEDS: HUMULIN R SUBQ SCH ×4 (06:26→21:00)
[2019-10-31] MEDS: LOVENOX SUBQ SCH (08:39)
[2019-10-31] MEDS: LASIX IV SCH ×2 (08:39→22:37)
[2019-10-31] MEDS: SYMBICORT 160/4.5 MICROGM INHALER INH SCH ×2 (08:53→19:59)
[2019-10-31] MEDS: PHENERGAN IV PRN (09:14)
--- NOTE | 2019-10-31 10:03 | PROGRESS NOTE ---
DATE: 10/31/2019 SUBJECTIVE: Ms. Perea feels a little better but she had some nausea. She ate almost all of her breakfast. She remains afebrile. OBJECTIVE: Temperature 98.8 degrees, pulse 68, respirations 15, blood pressure 110/61. Pupils are equal and round. Lungs are clear in all lung agee. Cardiovascular Examination: Regular rhythm and rate without murmur or S3. Abdomen is soft. Skin is warm and dry. Urine output is 1600 mL. Chest x-ray, cardiomegaly, pulmonary vascular congestion. ASSESSMENT/PLAN: The patient was admitted on 10/29/2019. Doctor is Dr. Enriqueta Godinez. Presented with shortness of breath that she had for about 3 days. She has a history of chronic obstructive pulmonary disease, on home oxygen, chronic hypoxemia, hypertension, diabetes mellitus type 2, obstructive sleep apnea, and hypothyroidism. Continue her supplementary oxygen. She is on methylprednisone, had seemed to have an element of bronchospasm and she seems a little better, probably good to sit her up in a chair. Initiate some physical therapy. She is on Lovenox 40 mg every 24 hours, Lasix 40 mg intravenous every 12 hours. For her back pain, she is taking some Toradol and on methylprednisone 60 mg intravenous every 8 hours. Abdominal and pelvic CT was done and there is a stone in the right ureteropelvic junction, mild distention of the right pelvis, nonobstructing left renal stone, status post cholecystectomy, hepatomegaly due to fatty infiltration, status post hysterectomy, and she had some colon polyps. We will start physical therapy and sit her up in a chair today. cc: Yanick Guzman MD
[2019-10-31] MEDS: NORCO-7.5 PO PRN ×2 (17:48→22:42)
--- NOTE | 2019-10-31 20:56 | CONSULTATION ---
DATE OF CONSULTATION: 10/31/2019 CHIEF COMPLAINT: Right ureteral stone. HISTORY OF PRESENT ILLNESS: Ms. Perea is a 54-year-old with COPD, hypertension, type 2 diabetes, obstructive sleep apnea, hypothyroidism, and history of kidney stones who presents to the emergency room on 10/29/2019 complaining of 3-day history of worsening shortness of breath. She has felt that she was being smothered and had difficulty taking deep breaths. The patient takes home oxygen. She received a nebulizer and had increasing oxygen. Ultimately, this improved her symptoms. She states that she has been having some right flank pain. A CT abdomen and pelvis was obtained on 10/29/2019, which showed a right renal stone as well as a right ureteral stone within the proximal ureter. The patient is evaluated today. She states she has a long history of kidney stones and has undergone multiple extracorporeal shockwave lithotripsies with Dr. Farley in [place]. The patient states she is having pressure in her back and feels like the stone is causing discomfort. Urology was consulted for further recommendations. PAST MEDICAL HISTORY: 1. COPD on home oxygen. 2. Hypertension. 3. Type 2 diabetes. 4. Obstructive sleep apnea. 5. Hypothyroidism. 6. History of nephrolithiasis. PAST SURGICAL HISTORY: 1. Bilateral knee replacement. 2. Appendectomy. 3. Cholecystectomy. 4. Hysterectomy. 5. Bilateral carpal tunnel surgery. 6. Multiple extracorporeal shock lithotripsy. ALLERGIES: 1. Morphine. 2. Sulfa. 3. Zofran. 4. Toradol. 5. Codeine. HOME MEDICATIONS: 1. Albuterol. 2. Atorvastatin. 3. Folic acid. 4. [place]. 5. Levothyroxine. 6. Losartan. 7. Metformin. 8. Requip. 9. Tizanidine. SOCIAL HISTORY: The patient is a former smoker. She denies alcohol or illicit drug use. FAMILY HISTORY: Denies family history of malignancies. REVIEW OF SYSTEMS: A 12-point review of systems performed with all pertinent positives and negatives in the HPI. Vital signs: Temperature 98.4 degrees, heart rate 90, blood pressure 143/66, oxygen saturation 98% on room air. General: No acute distress. Resting comfortably in bed. Alert and oriented x3. HEENT: Normocephalic, atraumatic. Pupils equal, round, reactive to light. Neck: Trachea midline with no obvious masses. Respiratory: Good respiratory effort without audible wheezing or rales. Abdomen: Soft, nontender, nondistended. : No suprapubic tenderness. No CVA tenderness. Cardiovascular: Regular rate and rhythm with evidence of 1+ lower extremity edema. Musculoskeletal: Moves all extremities. Skin: No skin lesions or rashes. Neurologic: Gross motor and sensory intact. LABS: No urine culture was sent. White blood cell count 11, hemoglobin 12.3, hematocrit 41.2, platelets 336,000. Sodium 137, potassium 4.9, chloride 102, bicarb 25, BUN 19, creatinine 0.9, glucose 153, calcium 9.4. Urinalysis shows trace protein, negative blood, leukocytes or bacteria. CT of the pelvis images reviewed, which showed 2 stones within the right collecting system. There is a lower pole right renal stone as well as an obstructing right proximal ureteral stone measuring 6 x 7 mm in size near the ureteropelvic junction. ASSESSMENT AND PLAN: Ms. Perea is a 54-year-old with history of chronic obstructive pulmonary disease, hypertension, type 2 diabetes, obstructive sleep apnea, and hypothyroidism who presents in consultation regarding right proximal ureteral stone. CT of the abdomen and pelvis was obtained which showed 2 stones in the collecting system on the right side, 1 of the kidney as well as 1 in the ureter itself. The patient is currently having intermittent right flank pain. Images reviewed which showed an approximately 6 x 8 mm stone in the proximal right ureter. I talked to her and discussed treatment options, including cystoscopy, right ureteroscopy, lithotripsy and stone basket extraction, percutaneous nephrostolithotomy as well as extracorporeal shockwave lithotripsy. Reviewed the risks, benefits, alternatives of the procedure. The patient states she has undergone multiple shockwaves in the past and has been effective for removing her stones. The patient would like to use this as it is the most minimally invasive for her. She discusses her desire to not have a stent placed if possible. We will plan to perform right extracorporeal shockwave lithotripsy tomorrow in the operating room. I will make her nothing by mouth at midnight. We will obtain a consent and the patient will be seen in the morning in preparation for surgery tomorrow. We will continue to monitor from urologic standpoint. Please call with questions or concerns. cc: Y[facility]uf Gaitan MD [facility]
[2019-11-01] MEDS: SOLU-MEDROL IV SCH ×3 (00:36→17:28)
[2019-11-01] MEDS: PHENERGAN IV PRN ×2 (00:37→22:20)
[2019-11-01] MEDS: DUONEB (A & A) INH SCH ×6 (03:40→23:05)
[2019-11-01] MEDS: HUMULIN R SUBQ SCH ×4 (07:00→22:00)
[2019-11-01] MEDS: SYMBICORT 160/4.5 MICROGM INHALER INH SCH ×2 (07:40→19:55)
--- NOTE | 2019-11-01 07:46 | PROGRESS NOTE ---
DATE: 11/01/2019 SUBJECTIVE: Patient overall is feeling well today. She denies any flank or abdominal pain this morning. She rested comfortably overnight. The patient has been NPO in preparation for surgery today. OBJECTIVE: Vital signs: Temperature 98.1 degrees, heart rate 69, blood pressure 109/65, oxygen 100% on BiPAP. General: No acute distress. Resting comfortably in bed. Alert and oriented x3. Respiratory: Good respiratory effort without audible wheezing or rales. Abdomen: Soft, nontender, nondistended. No suprapubic tenderness. No CVA tenderness. Musculoskeletal: Moving all extremities with obvious defects. LABS: White blood cell count was 11.0 on 10/30/2019. The patient's renal function was 0.9 on 10/30/2019. Urinalysis shows trace protein, negative leukocytes and RBCs. ASSESSMENT/PLAN: Ms. Perea is a 54-year-old with COPD on home oxygen, hypertension, type 2 diabetes, obstructive sleep apnea, hypothyroidism, history of nephrolithiasis presents in consultation regarding right ureteral stone and right flank pain. She has previously undergone shockwave lithotripsy by Dr. Farley in [place] and presented to [facility] complaining of shortness of breath. She had developed a mild right flank pain. A CT scan performed which showed a stone in the proximal ureter on the right side. I talked with her and reviewed risks of procedure including pain, bleeding, hematuria, hematoma formation, inability to break up the stone, need for secondary procedures. After thorough discussion, the patient elected to proceed. To the operating room this morning for right extracorporal shockwave lithotripsy. cc: Yousuf Gaitan MD [facility]
[2019-11-01] MEDS ORDERED: XYLOCAINE-MPF 2% ONE ×2 (08:29→10:32)
[2019-11-01] MEDS ORDERED: DIPRIVAN 1% ONE ×2 (08:29→10:32)
[2019-11-01] MEDS ORDERED: ROBINUL ONE ×2 (08:29→10:31)
--- NOTE | 2019-11-01 09:05 | PROGRESS NOTE ---
DATE: 11/01/2019 SUBJECTIVE: Ms. Perea is sleepy, but she was easy to arouse. She is breathing better. She feels a little stronger. We will try and get her up and ambulate her today. OBJECTIVE: Vital Signs: She remains afebrile, temperature 97.6 degrees, pulse 85, respirations 20, blood pressure 121/58. HEENT: Pupils are equal and round. Lungs: Clear in all lung agee. Cardiovascular: Regular rhythm and rate without murmur or S3. Urine Output: 3000 mL. Blood Sugars: 142, 143, 118, 134. ASSESSMENT AND PLAN: She came in, admitted with shortness of breath for about 3 days, appeared to have a history of obstructive apnea and chronic hypoxemia with chronic obstructive pulmonary disease, on home oxygen. Continue her albuterol and budesonide and steroid inhaler and beta agonist inhaler. She is getting Lasix 40 mg IV every 12 hours, and this seems to be helping, and she is on methylprednisone 60 mg IV every 8 hours because she had significant bronchospasm. Dr. Gaitan was consulted. CT of the abdomen and pelvis obtained on 10/29/2019 showed right renal stone, as well as right ureteral stone within the proximal ureter. She has a long history of kidney stones and has undergone multiple extracorporeal shockwave lithotripsies per Dr. Farley in [place]. She was having pressure in her back and feels like the stone is causing some discomfort. Dr. Gaitan has talked to her, discussed treatment options including cystoscopy, right ureteroscopy, lithotripsy, and stone basket extraction and percutaneous nephrostolithotomy, as well as extracorporeal shockwave lithotripsy. I reviewed the risks and benefits of the procedure. Patient states that she has undergone multiple shockwaves in the past and it has been effective for removing stones. The patient would like to use this, as it is most minimally invasive for her, and she discusses her desire to not have a stent placed if possible, so the plan is for right extracorporeal shockwave lithotripsy today, and then we are going to try and do some physical therapy and get her up out of bed and possibility she could go home tomorrow. cc: Yanick Guzman MD
[2019-11-01] MEDS: LASIX IV SCH ×3 (09:41→22:20)
[2019-11-01] MEDS ORDERED: QUELICIN (DOSE) ONE (10:31)
[2019-11-01] MEDS ORDERED: KEFZOL 1 GM/D5W 2 GM/100 ML IVPB ONE (11:21)
[2019-11-01] MEDS ORDERED: DECADRON ONE (11:50)
[2019-11-01] MEDS ORDERED: PHENERGAN ONE (11:57)
[2019-11-01] MEDS ORDERED: NORCO-7.5 ONE (13:18)
[2019-11-01] MEDS: NORCO-7.5 PO PRN ×2 (13:27→22:19)
[2019-11-01] MEDS: TORADOL IV PRN (16:34)
--- NOTE | 2019-11-01 21:44 | OPERATIVE NOTE ---
PROCEDURE DATE: 11/01/2019 PREOPERATIVE DIAGNOSIS: 1. Right ureteral stone. 2. Right renal stone. POSTOPERATIVE DIAGNOSIS: 1. Right ureteral stone. 2. Right renal stone. PROCEDURES PERFORMED: 1. Cystoscopy. 2. Right retrograde pyelogram. 3. Right diagnostic ureteroscopy. 4. Right extracorporeal shockwave lithotripsy. SURGEON: Yousuf Gaitan MD. ASSISTANT COMMUNITY DIRECTOR: None. COMPLICATIONS: None. BLOOD LOSS: Minimal. DRAINS: None. SPECIMENS REMOVED: None. ANESTHESIA: Endotracheal intubation. INDICATION FOR PROCEDURE: Ms. Perea is a 54-year-old who presented as a urology consult regarding right ureteral stone. The patient was admitted the hospital for shortness of breath and concern for pneumonia versus COPD exacerbation. The patient began having right flank pain and pressure. Had a CT of pelvis performed which showed a stone within the proximal ureter as well as a right renal stone. The patient's pain has slightly improved. In talking with her, she has undergone multiple surgical interventions for kidney stones in the past and is having enough pain that she would like to proceed with surgical intervention. I discussed observation with medical expulsive therapy, ureteroscopy and stone removal, as well as extracorporeal shock lithotripsy. The patient is concerned about keeping a ureteral stent and would like to proceed with extracorporeal shockwave lithotripsy. I discussed the procedure at length, including the risks, benefits, and alternatives, and the patient elected to proceed DESCRIPTION OF PROCEDURE: After informed consent was obtained, patient was brought to the operating room and placed on the operating table in supine position. The patient received preoperative antibiotics and underwent endotracheal intubation. She was positioned into a dorsal lithotomy position, was then prepped and draped in the usual sterile fashion. A preoperative time- out was then performed with all parties in agreement, including anesthesia, surgical, nursing staff. At which point fluoroscopy was then obtained to visualize the stone. Seemed to be able to visualize faintly the lower pole, right renal stone; however, no ureteral stone was seen. At this point, a 21-Urdu cystourethroscope was inserted through the urethra into the bladder. The entirety of the bladder was inspected with no diverticula, cellules, trabeculations, or papillary lesions. Both ureteral orifices were visualized and effluxed clear yellow urine. There appeared to be some stone fragments extruding from the right ureteral orifice, as well as some crystals within the bladder itself. Open catheter was then passed through the scope, flushed of all bubbles, and a right retrograde pyelogram was then performed which outlined a normal ureter all the way up into the collecting system. Filling defects were seen within the lower pole and what appeared to be likely upper to interpolar area, and no obvious filling defects were seen within the ureter itself. At this point, a ZIPwire was then passed through the open- ended catheter and up into the collecting system and left in place. The patient's bladder was drained. Then a semi- rigid ureteroscope was able to advance through the urethra and into the bladder. The right ureteral orifice was cannulized and this was able to be advanced all the way up into the proximal ureter with no stone seen within the ureter itself. A PTFE wire was then advanced through the scope and both the ZIPwire and PTFE wire were left in place. A flexible ureteroscope was then passed over the PTFE wire and up in the collecting system itself. The entirety of the collecting system was inspected. There were 2 stones seen, one in the lower pole as well as one in the upper pole region. No other stones were seen within the renal pelvis or other calices. Both stones were easily visualized with contrast in the collecting system itself. Decision was made to transition to extracorporeal shock lithotripsy due to the patient's desire to have shockwave treatment of her stones. The patient was then positioned. Then, beginning at energy 1 and increasing up to 7, energy was delivered to the upper pole stone with a hertz of 1.5 with periodic fluoroscopy. 1500 shocks were delivered to the upper pole area and no residual large fragments were seen. Periodic contrast was instilled into the collecting system to ensure adequate visualization of stones. Attention was then placed to the lower pole stone and then a similar energy was delivered to this stone as well, with a total of 1500 shocks delivered to the lower pole stone. Good distribution of stone debris was seen at the end of the procedure with no residual large fragments. Total fluoroscopy time was 3 minutes and 29 seconds. Patient had been receiving Lasix on the floor and did not receive during the procedure. Due to adequate distribution of stones, the decision was made not to place a ureteral stent as the patient had good drainage from her collecting system. At this point, the patient was then awoken and was taken to recovery room in stable condition. DISPOSITION: Patient will be transferred back to the floor and hopefully discharged in the coming days. Will need follow-up in the office in 2-3 weeks. cc: Yousuf Gaitan MD [facility]
[2019-11-01] MEDS: PERIDEX MT SCH (22:20)
[2019-11-02] MEDS: DUONEB (A & A) INH SCH ×2 (03:10→08:30)
[2019-11-02] MEDS: SOLU-MEDROL IV SCH (04:00)
[2019-11-02] MEDS: NORCO-7.5 PO PRN (04:00)
[2019-11-02] MEDS: TORADOL IV PRN (05:33)
[2019-11-02] MEDS: HUMULIN R SUBQ SCH (06:52)
--- NOTE | 2019-11-02 06:56 | PROGRESS NOTE ---
DATE: 11/02/2019 SUBJECTIVE: Postoperative day 1 from cystoscopy, right retrograde pyelogram, right diagnostic ureteroscopy, and extracorporeal shockwave lithotripsy on 11/01/2019. She is sleeping comfortably. Denies any significant pain this morning. She has been voiding without issue. OBJECTIVE: Vital Signs: Temperature 98.1 degrees, heart rate 82, blood pressure 146/74, oxygen saturation 95% on room air. General: No acute distress. Resting in bed, alert and oriented x3. Respiratory: Good respiratory effort without audible wheezing or rales. The patient had a CPAP machine at bedside. Cardiovascular: Regular rate and rhythm. Abdomen: Soft, nontender, nondistended. Genitourinary: No suprapubic tenderness. No CVA tenderness. Evidence of erythema within the groin, likely from yeast infection. She denies any pain at this site. ASSESSMENT AND PLAN: Ms. Perea is a 54-year-old with chronic obstructive pulmonary disease, hypertension, type 2 diabetes, obstructive sleep apnea, hypothyroidism, and history of nephrolithiasis, who presents postoperative day 1 from cystoscopy, right retrograde pyelogram, right diagnostic ureteroscopy, and right extracorporeal shockwave lithotripsy. The patient has done well. She denies significant pain this morning. We will continue with oral medications as needed. Continue hydration. The patient had 2 stones that were broken up yesterday. The patient will continue to pass fragments. I will have her follow up in the office in 2 weeks to ensure adequate removal of her stone fragments. We can give her Flomax to see if this helps with her passage of stones. We will continue to monitor from a urologic standpoint. Please call with questions or concerns. cc: Yousuf Gaitan MD [facility]
[2019-11-02 07:25] VITALS: BP 148/63
[2019-11-02] MEDS: SYMBICORT 160/4.5 MICROGM INHALER INH SCH (08:30)
[2019-11-02] MEDS ORDERED: FLOMAX PO SCH (09:00)
--- NOTE | 2019-11-02 09:14 | DISCHARGE SUMMARY ---
ADMISSION DATE: 10/29/2019 DISCHARGE DATE: 11/02/2019 HISTORY OF PRESENT ILLNESS: She is a patient of Dr. Enriqueta Godinez. She is a 54-year-old who presented on 10/29/2019 with shortness of breath for 3 days, history of COPD, hypertension, diabetes mellitus type 2, obstructive sleep apnea, and hypothyroidism. She presented to the emergency department after a 3-day history of worsening shortness of breath. The patient states that she felt like she was being smothered and could not take deep breaths. She was evaluated in the emergency department, suspected having exacerbation of COPD and so was admitted. She was given nebulized treatment and supplemental oxygen with only mild improvement in the emergency room. PAST MEDICAL HISTORY: 1. Chronic obstructive pulmonary disease. 2. Hypertension. 3. Diabetes mellitus type 2. 4. Obstructive sleep apnea. 5. Hypothyroidism. PAST SURGICAL HISTORY: 1. Bilateral knee surgery. 2. Appendectomy. 3. Cholecystectomy. 4. Hysterectomy. 5. Bilateral carpal tunnel surgery. ALLERGIES: Morphine, ketorolac, sulfa, and Zofran. ADMISSION DIAGNOSES: 1. Acute on chronic obstructive pulmonary disease. 2. Hypertension. 3. Diabetes mellitus type 2. 4. Obstructive sleep apnea. HOSPITAL COURSE: Patient chest x-ray on 10/29/2019 with mildly prominent heart with mild pulmonary edema. Abdominal and pelvic CT was done. She had a stone at the right ureteropelvic junction, mild distention in the renal pelvis, nonobstructing right renal stone. She is status post cholecystectomy, hepatomegaly with fatty infiltration, hysterectomy, and colonic diverticulosis. Chest x-ray on 10/30/2019 for followup shows cardiomegaly, pulmonary vascular congestion overall improvement. Dr. Gaitan evaluated her and cystoscopy, right retrograde pyelogram, right diagnostic ureteroscopy, right extracorporeal shock wave lithotripsy was performed. She wanted not to have a stent. She did well and was eating well bowels moving and she wanted to go home. Plan to discharge her home. She has oxygen at home already. We will keep her on the Symbicort 160/4.5 two puffs b.i.d. She is getting Lasix 40 mg IV q.12. I am going to change at 40 mg p.o. which she will take 40 mg q.a.m. once a day. She is on Flomax 0.4 mg daily, which I will continue for another 4 weeks. She is on aripiprazole 10 mg daily, Synthroid 150 mcg daily, Cozaar 25 mg a day, metformin 500 mg daily, Pravachol 80 mg a day, Requip 1 mg at bedtime and sertraline 50 mg daily and we will continue all of those. Labs from this morning are unremarkable. Blood sugars have been fairly well controlled. cc: Yanick Guzman MD
[2019-11-02] MEDS: PERIDEX MT SCH (10:28)
== END 2019-11-02 10:44 | disposition home or self-care (01) | DRG 669 ==
LOC: ED 16:14 → EDIPHOLD 22:38 → SUATTDRO 22:38 → 4N 10-30 07:32
PROVIDERS: ATTEND Emergency Medicine
PROC: UR.ESWL (2019-11-01 11:19)

== ENCOUNTER 2019-12-10 21:23 | Observation (INO) ==
[2019-12-10] MEDS ORDERED: PHENERGAN IM ONE (21:40)
[2019-12-10] MEDS ORDERED: DEMEROL IV ONE (21:40)
--- NOTE | 2019-12-10 22:04 | Diag Imaging Result Doc PS360 ---
EXAM: CHEST-1 VIEW 12/10/2019 HISTORY: chest pain TECHNIQUE: AP upright at 2153 COMMENT: The study is underexposed. There is borderline cardiomegaly and increased pulmonary vascularity. This is similar in appearance to the previous study of 11/26/2019. There is some apparent platelike atelectasis in the right middle lobe. IMPRESSION: Cardiomegaly and increased pulmonary vascularity. Minimal right middle lobe atelectasis. Electronically signed by Vasu Henson 12/10/2019 10:02 PM
--- NOTE | 2019-12-11 00:15 | EKG Report ---
Test Performed on : 12/10/2019 9:36:45 PM Test Reason : chest pain Blood Pressure : / mmHG Vent. Rate : 102 BPM Atrial Rate : 102 BPM P-R Int : 140 ms QRS Dur : 082 ms QT Int : 340 ms P-R-T Axes : 054 076 043 degrees QTc Int : 443 ms Sinus tachycardia. Biatrial enlargement Abnormal ECG When compared with ECG of 26-NOV-2019 10:11, (Unconfirmed) No significant change was found Unconfirmed Result
[2019-12-11 00:25] LABS: BASO# 0.03 X1000 (0.0-0.2); BASO% 0.3 % (0.0-0.8); EOS# 0.11 X1000 (0.0-0.7); HEMATOCRIT 38.3 % (37.0-47.0); HEMOGLOBIN 11.4 g/dL (12.0-16.0); LYMPH# 1.42 X1000 (1.2-3.4); LYMPH% 12.3 % (20.5-51.1); MCH 26.5 PG (27-31); MCHC 29.8 g/dL (33-37); MCV 89.1 FL (81-99); MONO# 0.63 X1000 (0.11-0.59); MONO% 5.5 % (1.7-9.3); MPV 9.8 FL (7.4-10.4); NEUT# 9.34 X1000 (1.4-6.5); NEUT% 80.9 % (42.2-75.2); PLT 322 X1000 (130-400); RDW 17.9 % (11.5-14.5); WBC 11.53 X1000 (4.8-10.8)
[2019-12-11 01:01] LABS: AGAP 13; ALB/GLOB RATIO 1.1; ALBUMIN 3.6 g/dL (3.5-5.0); ALKALINE PHOSPHATASE 98 U/L (32-104); BUN 11 mg/dL (8-22); CALCIUM 9.2 mg/dL (8.8-10.2); CHLORIDE 103 mmol/L (98-107); COSMO 287; CREATININE 0.9 mg/dL (0.5-0.9); ESTIMATED GFR > 60; GLUCOSE 86 mg/dL (70-104); GOT 18 U/L (10-30); GPT 27 U/L (10-36); POTASSIUM 4.2 mmol/L (3.5-5.1); SODIUM 145 mmol/L (136-145); TCO2 29 mmol/L (25-35); TOTAL BILIRUBIN 0.47 mg/dL (0.20-1.00)
--- NOTE | 2019-12-11 02:14 | PROVIDER DOCUMENTATION ---
This chart was entered by Shani Cottrell Scribe, acting as scribe for Jesus Mosley MD. HPI-Chest Pain - General Stated Complaint: CHEST PAIN/SOB Time Seen by Provider: 12/10/19 21:32 Source: patient Allergies/Adverse Reactions: Patient Allergies Allergy/AdvReac Type Severity Reaction Status Date / Time Sulfa (Sulfonamide Allergy yellowing Verified 12/11/19 00:05 Antibiotics) of eyes and skin codeine AdvReac HEADACHE Verified 12/11/19 00:05 ketorolac tromethamine * AdvReac NAUSEA/VOMI Verified 12/11/19 00:05 [From Toradol] TING morphine AdvReac ITCHING Verified 12/11/19 00:05 ondansetron HCl * AdvReac HEADACHE Verified 12/11/19 00:05 [From Zofran (as hydrochloride)] Home Medications: Home Medication List Medication Instructions Recorded Confirmed Last Taken Type Aripiprazole 10 mg PO DAILY 04/28/17 12/11/19 11/26/19 History Metformin [Glucophage] 500 mg PO DAILY@1700 04/28/17 12/11/19 11/25/19 History Losartan [Cozaar] 25 mg PO DAILY #60 tab 02/13/18 12/11/19 11/26/19 Rx Budesonide/Formoterol Fumarate 2 puff INH BID@0900,2100 10/30/19 12/11/19 11/26/19 History [Symbicort 160-4.5 Mcg Inhaler] Furosemide [Lasix] 40 mg PO DAILY 10/30/19 12/11/19 11/26/19 History Levothyroxine [Synthroid] 150 microgm PO DAILY@0600 10/30/19 12/11/19 11/26/19 History PRAVAstatin [Pravachol] 80 mg PO QHS 10/30/19 12/11/19 1 Day Ago History ~11/25/19 Ropinirole [Requip] 1 mg PO QHS 10/30/19 12/11/19 1 Day Ago History ~11/25/19 Albuterol Sulfate 0.63 mg INHALATION Q4-6H PRN PRN 11/26/19 12/11/19 Unknown Rx #30 vial.neb Methylprednisolone [Medrol Dosepak] 4 mg PO DIRECTED #1 pkg 11/26/19 12/11/19 Unknown Rx Sertraline HCl 50 mg PO QHS 12/11/19 12/11/19 Unknown History Tamsulosin [Flomax] 0.4 mg PO DAILY 12/11/19 12/11/19 Unknown History - History of Present Illness-CP Nature of Presenting Problem: Pt is a 54 yowf presenting in the ED with c/o chest pain that pt states is 8 out of 10 and started 3 days ago, SOB, and sweating. Pt reports that she has been fighting with her daughter about coming to the ED for treatment as her daughter does not want her to catch COVID19. Pt has a hx of CHF, COPD, HTN, and diabetes. Pt is moderately distressed and pale in appearance. Location: reports: substernal (left) Chest Pain Radiation: reports: no radiation Severity in ED: moderate Onset/Duration: abrupt, 3 days ago Timing: still present, constant, getting worse Context/Activities at Onset: reports: light activity. denies: out of country travel Modifying Factors: worse with: lying down Associated Symptoms: reports: diaphoresis, shortness of breath. denies: vomiting Nitro Today/Relief: no nitro taken today Aspirin Treatment Today: 325 mg x 1 (x2) Prior Chest Pain/Cardiac Workup: denies: heart attack Similar Symptoms Previously?: Yes (pt reports previous episodes like this as COPD exhasurbation) Recently Seen Here or By Another Healthcare Provider: No Review of Systems - Adult - REVIEW OF SYSTEMS - ADULT Constitutional: denies: chills, fever Eyes: reports: no symptoms reported Ears, Nose, Mouth & Throat: reports: no symptoms reported Cardiovascular: reports: no symptoms reported, chest pain. denies: syncope Respiratory: reports: see HPI, shortness of breath. denies: cough Gastrointestinal: denies: abdominal pain, vomiting Genitourinary: reports: no symptoms reported Musculoskeletal: reports: no symptoms reported Integumentary: reports: no symptoms reported Neurological: reports: no symptoms reported Psychiatric: reports: no symptoms reported Endocrine: reports: see HPI, excessive sweating Hematologic/Lymphatic: reports: no symptoms reported Allergic/Immunologic: reports: no symptoms reported All Other Systems: Reviewed and Negative Past History - Adult - PAST MEDICAL HISTORY-ADULT Review of Records: reports: Old Records Reviewed, Nursing Assessment Review, Medications Reviewed, Social history reviewed & non-contributory. Major Childhood Illnesses: reports: denies history Cardiovascular: reports: CHF, hyperlipidemia Respiratory: reports: COPD Gastrointestinal: reports: denies history, diverticulosis Obstetrical/Gynecological: reports: denies history Genitourinary: reports: denies history, kidney stones Musculoskeletal: reports: denies history Neurological: reports: denies history, other (bipolar; restless leg syndrome) Endocrine/Immune: reports: denies history, Diabetes, thyroid disorder Other Conditions: reports: denies history - PRIOR SURGERIES/PROCEDURES Surgical/Procedure History: reports: appendectomy, cholecystectomy, hysterectomy , tonsillectomy, orthopedic (extremity) (carpal tunnel; R knee). denies: recent surgery - IMMUNIZATION STATUS Childhood Immunizations: See Nurse Assessment Flu Vaccine: See Nurse Assessment - FAMILY HISTORY Family History: reviewed, not pertinent - SOCIAL HISTORY Living Situation: family (daughter) Physical Exam-General - PHYSICAL EXAM-ADULT Initial Vital Signs Reviewed: Yes - CONSTITUTIONAL General Appearance: alert, moderate distress, obese - EYES Eyes: PERRL/EOMI, pink conjunctivae - HEAD, EARS, NOSE, MOUTH & THROAT HENMT: normocephalic/atraumatic, moist mucous membranes - NECK Neck: non-tender, full range of motion, normal inspection - RESPIRATORY Respiratory: chest non-tender, lungs clear, normal breath sounds, no respiratory distress - CARDIOVASCULAR Cardiovascular: normal peripheral pulses - CHEST (BREASTS) Chest/Breast: tenderness (left sided substernal) - GASTROINTESTINAL (ABDOMEN) Abdominal Exam: normal bowel sounds, non tender, soft - LYMPHATIC Lymphatic: no adenopathy - MUSCULOSKELETAL Back Exam: normal inspection, no CVA tenderness, no vertebral tenderness Extremity: normal range of motion, non-tender, normal gait, normal inspection, no pedal edema, no calf tenderness, normal capillary refill - SKIN Integumentary: normal turgor, warm/dry, pallor - NEUROLOGIC Neurologic: grossly normal - PSYCHIATRIC Psych/Mental Status: normal mood/affect, normal thought content, normal thought process, oriented x 3 - HEART Score HEART Score: History: Moderately Suspicious HEART Score: ECG: Non-Specific Repolarization Disturbance/LBBB/PM HEART Score: Age: 45-65 Years HEART Score: Risk Factors for Atherosclerotic Disease: 1 or 2 Risk Factors HEART Score: Troponin: < or = Normal Limit Total HEART Score:: 4 Progress - PLAN OF CARE/RESULTS Progress/Plan/Lab Results: Vital Signs - 8 hr 12/10/19 21:34 Temperature 99.2 F Pulse Rate 99 H Respiratory Rate 21 Blood Pressure 112/89 O2 Sat by Pulse Oximetry 95 Laboratory Results - last 24 hr 12/10/19 12/10/19 12/10/19 23:30 23:30 23:30 WBC RBC Hgb Hct MCV MCH MCHC RDW Std Deviation Plt Count MPV Neut % (Auto) Lymph % (Auto) Eagle % (Auto) Eos % (Auto) Baso % (Auto) Neut # (Auto) Lymph # (Auto) Eagle # (Auto) Eos # (Auto) Baso # (Auto) Sodium 145 Potassium 4.2 Chloride 103 Carbon Dioxide 29 Anion Gap 13 BUN 11 Creatinine 0.9 Estimated GFR/1.73 m2 > 60 BUN/Creatinine Ratio 12 Glucose 86 Calculated Osmolality 287 Calcium 9.2 Total Bilirubin 0.47 AST 18 ALT 27 Alkaline Phosphatase 98 Troponin T High Sens Iak-Y-Nrammpccexw Pept 453 H Total Protein 7.0 Albumin 3.6 Globulin 3.4 Albumin/Globulin Ratio 1.1 Plasma Lactate 1.1 12/10/19 12/10/19 23:30 23:30 WBC 11.53 H RBC 4.30 Hgb 11.4 L Hct 38.3 MCV 89.1 MCH 26.5 L MCHC 29.8 L RDW Std Deviation 17.9 H Plt Count 322 MPV 9.8 Neut % (Auto) 80.9 H Lymph % (Auto) 12.3 L Eagle % (Auto) 5.5 Eos % (Auto) 1.0 Baso % (Auto) 0.3 Neut # (Auto) 9.34 H Lymph # (Auto) 1.42 Eagle # (Auto) 0.63 H Eos # (Auto) 0.11 Baso # (Auto) 0.03 Sodium Potassium Chloride Carbon Dioxide Anion Gap BUN Creatinine Estimated GFR/1.73 m2 BUN/Creatinine Ratio Glucose Calculated Osmolality Calcium Total Bilirubin AST ALT Alkaline Phosphatase Troponin T High Sens 11 Vkl-G-Lkyfneciaxc Pept Total Protein Albumin Globulin Albumin/Globulin Ratio Plasma Lactate Orders Category Date Time Status NEWS Score 2-4:Order NEWS Lactate Series NOW Care 12/10/19 21:38 Active Nursing- Obtain EKG ONCE Care 12/10/19 21:38 Active CHEST-1 VIEW [RAD] Stat Exams 12/10/19 21:38 Completed CBC WITH ELECTRONIC DIFF [HEME] Stat Lab 12/10/19 23:30 Completed COMPREHENSIVE METABOLIC PANEL [CHEM] Stat Lab 12/10/19 23:30 Completed LACTATE, PLASMA [CHEM] Lab 12/10/19 23:30 Completed LACTATE, PLASMA [CHEM] Lab 12/11/19 00:45 Uncollected LACTATE, PLASMA [CHEM] Lab 12/11/19 03:45 Uncollected PRO B-NATRIURETIC PEPTIDE Stat Lab 12/10/19 23:30 Completed PROTIME WITH INR [COAG] Stat Lab 12/10/19 21:38 Uncollected PTT [COAG] Stat Lab 12/10/19 21:38 Uncollected TROPONIN T HIGH SENSITIVITY Stat Lab 12/10/19 23:30 Completed Meperidine [Demerol] Med 12/10/19 21:40 Discontinued 25 mg IV NOW ONE Promethazine [Phenergan] Med 12/10/19 21:40 Discontinued 25 mg IM NOW ONE EKG [EKG] Stat Ther 12/10/19 21:38 Draft Result Diagrams: 12/10/19 23:30 12/10/19 23:30 - EKG 1 Time of EKG reading by physician:: 21:36 EKG Read and Signed by:: Jesus Mosley EKG Interpretation (*Must complete 3 of following elements*): Abnormal Rate: 102 Rhythm: Sinus tachycardia [place]: normal QRS: normal Comments: biatrial enlargement - XRAY 1 XRAY Study: Chest Impression: See EMR Report ([facility] - [address] [place] [address] [address] [place] [id number] [facility] - [address] [place] [address] Department of Imaging Patient: SAMIA CASTILLO Kalen e: 12/10/19MR#: [id number] : 1965ADM Status: PRE ERAcct#: [id number] Age/Sex: 54/FRoom/Bed: Loc: ED Ordering Physician: Jesus Mosley MD Family Physician: Reason for Procedure: chest pain ___ Signed EXAM: CHEST-1 VIEW 12/10/2019 HISTORY: chest pain TECHNIQUE: AP upright at 2153 COMMENT: The study is underexposed. There is borderline cardiomegaly and increased pulmonary vascularity. This is similar in appearance to the previous study of 11/26/2019. There is some apparent platelike atelectasis in the right middle lobe. IMPRESSION: Cardiomegaly and increased pulmonary vascularity. Minimal right middle lobe atelectasis. Electronically signed by Vasu Henson 12/10/2019 10:02 PM 12/10/192201 Interpreting Physician: Vasu Henson MD Dictated Date/Time: 12/10/192200 cc: Jesus Mosley MD;) - CONSULTS/PCP/HOSPITALIST Notification #1 *Consult/PCP/Hospitalist*: Dr Solis Time Discussed: 02:12 Consult Disposition: Will see in ED, Admit Departure - Departure Date of Disposition Decision: 12/11/19 Time of Disposition Decision: 02:12 DIAGNOSIS: CHF (congestive heart failure), COPD exacerbation, Chest pain at rest Disposition: ADMITTED INPATIENT 09 Certified Medical Emergency: Emergent Condition: Fair - Critical Care Note This patient required my direct & personal management of CC.: No Attestation - Physician/ LOI Attestation Patient care was provided by Advanced Practice Provider:: No The physician spent face to face time with patient:: Yes Advanced Practice Provider documentation review:: Supervising physician onsite and consulted in the evaluation and care of this patient. The physician did have a face to face encounter with the patient. This chart was documented by the indicated scribe, (Shani Cottrell, Michealibe) and accurately reflects the services I performed and decisions made by me, Jesus Mosley MD, as attested by the provider's signature.
[2019-12-11 03:16] LABS: INR 1.03; PROTIME 13.6 Seconds (11.0-16.0)
[2019-12-11 03:17] LABS: PTT 31.5 Seconds (22.3-41.8)
[2019-12-11] MEDS: SYNTHROID PO SCH (05:04)
[2019-12-11] MEDS: PRILOSEC PO SCH ×2 (05:04→06:53)
[2019-12-11] MEDS: NITROGLYCERIN TOP SCH ×4 (05:04→22:20)
[2019-12-11] MEDS ORDERED: DUONEB (A & A) INH PRN (06:17)
--- NOTE | 2019-12-11 06:40 | HISTORY AND PHYSICAL ---
CHIEF COMPLAINT: Is that of left-sided chest pain for about 3 days. HISTORY OF PRESENT ILLNESS: Ms. Debra Perea is a 54-year-old female, who has a history of multiple medical conditions including COPD, congestive heart failure, diabetes mellitus, hypertension, hyperlipidemia, sleep apnea, obesity, gastroesophageal reflux disease, hypothyroidism, restless legs syndrome. The patient presents to the hospital because of left- sided chest pain which she has had for about 3 days. She describes the pain as sharp, intermittent and on a scale of 0-10 about 8/10. Radiates backwards. She has had associated diaphoresis, palpitations and shortness of breath. The patient claims that she had a cardiac stress test done about 1 year ago and was reportedly normal. The patient has now been admitted to the floor now for further management. PAST MEDICAL HISTORY: COPD, congestive heart failure, diabetes mellitus, hypertension, hyperlipidemia, obstructive sleep apnea, obesity, gastroesophageal reflux disease, hypothyroidism, depression, diverticulosis, nephrolithiasis, restless legs syndrome, bipolar disorder. PAST SURGICAL HISTORY: Include bilateral knee surgery, bilateral carpal tunnel surgery, cholecystectomy, appendectomy, tonsillectomy. SOCIAL HISTORY: No history of cigarette smoking. No alcohol or drug use. ALLERGIES: Patient is allergic to sulfa as well as morphine. FAMILY HISTORY: Positive for cancer. MEDICATIONS INCLUDE THE FOLLOWIN. Aripiprazole 10 mg p.o. daily. 2. Metformin 500 mg p.o. once a day. 3. Losartan 25 mg p.o. once a day. 4. Symbicort 2 puffs twice a day. 5. Lasix 40 mg p.o. daily. 6. Levothyroxine 150 mcg p.o. daily. 7. Pravastatin 80 mg p.o. daily. 8. Requip 1 mg p.o. at bedtime. 9. Albuterol sulfate inhalation q.4-6 hours p.r.n. 10. Medrol Dosepak as directed. 11. Sertraline 50 mg p.o. at bedtime. 12. Tamsulosin 0.4 mg p.o. once a day. REVIEW OF SYSTEMS: Constitutional: No fever. [employer]: No headaches. Eyes: No blurred vision. ENT: Has impaired hearing. Respiratory: No cough. GI: No nausea, no diarrhea or constipation, abdominal pains. Dermatology: No skin lesions. Hematology: No bleeding problems. Musculoskeletal: No joint pains. Psychiatry: Has depression. Allergy/Immunology: No symptoms suggestive of allergic rhinitis. Endocrinology: Has diabetes with thyroid disease. ON ADMISSION: Vital Signs Are As Follows: Temperature is 99.2 degrees, pulse 95, respiratory 15, blood pressure is 125/83. Oxygen saturation is 93%. HEENT: Atraumatic, normocephalic. She is anicteric. Extraocular movements intact. No oral lesions noted. Neck: No lymphadenopathy or thyromegaly. Cardiovascular: S1, S2. Respiratory system: Has evidence of good air entry bilaterally. Abdomen: Soft, obese, nontender. No masses felt. Extremities: No evidence of significant edema. Central nervous system: No obvious focal deficit noted. LABORATORY DATA: WBC is 11.3, hematocrit is 38.3 with a platelet count of 322,000. INR is 1.03. Sodium is 144, potassium 4.2, chloride is 103, bicarb 29, BUN is 11, creatinine 0.9. ProBNP is 453. Free T4 is 0.65. Chest x-ray shows evidence of cardiomegaly with increased pulmonary vascular condition. There is minimal right middle lobe atelectasis. EKG shows sinus tachycardia with biatrial enlargement. ASSESSMENT AND PLAN: 1. Chest pain rule out acute coronary syndrome. Maintain patient on telemetry. Follow up on serial cardiac enzymes. Maintain patient on aspirin, beta merlyn, nitroglycerin paste p.r.n. for chest pain. Obtain lipid panel. Check 2D echo of the heart and consult with Cardiology. 2. Congestive heart failure. Stable. Monitor intake and output as well as daily weights. Diuretics as needed. 3. Chronic obstructive pulmonary disease. Stable. Nebulized bronchodilators as needed. 4. Hypertension. Optimize blood pressure control. 5. Diabetes mellitus. Monitor blood sugar levels. Maintain patient on sliding scale insulin. Check hemoglobin A1c level. 6. Obstructive sleep apnea. The patient may use CPAP machine if she does have one at home. 7. Gastroesophageal reflux disease. PPI. 8. Hypothyroidism. Continue levothyroxine. Check thyroid function test. 9. Depression. Continue antidepressant. 10. Deep vein thrombosis prophylaxis. Lovenox. 11. Gastrointestinal prophylaxis. PPI. cc: MD GUS Biggs
[2019-12-11] MEDS: HUMULIN R SUBQ SCH ×4 (06:52→22:19)
[2019-12-11] MEDS: DUONEB (A & A) INH SCH ×5 (07:35→23:27)
--- NOTE | 2019-12-11 10:35 | CARDIOLOGY CONSULTATION ---
DATE: 12/11/2019 CONSULTING PHYSICIAN: Hospitalist Service REASON FOR CONSULTATION: Chest pain. HISTORY: Ms. Perea is an unfortunate 54-year-old female who presented to the emergency room last night at about 9:30 in the evening complaining of 3 days or so of chest pain that she describes as sharp and intense in the left anterior chest, pleuritic in nature associated with worsening dyspnea. Because the pain was unremitting, her daughter really forced her to come to the ER. Upon presentation, they obtained a chest x-ray that shows cardiomegaly with increased pulmonary vascularity, and minimal right middle lobe atelectasis. A 12 lead electrocardiogram done at the time of admission shows sinus tachycardia, heart rate is 102 beats per minute with no ischemic ST changes. There is some atrial enlargement noted on the ECG. Initial blood work showed a proBNP level of 453 mcg/mL. This is only mildly elevated. Upper normal is 226 mcg/mL. High sensitivity troponin has been checked twice at 11:30 in the evening and then at 5:20 in the morning; both are normal indicating that this is not an acute coronary syndrome. Sodium and potassium, BUN and creatinine are normal. Complete blood count shows 11,530 white blood cells per cubic mm, hemoglobin is 11.4 g percent. Hematocrit is 38.3%. ProTime and PTT are normal. D-dimer was just checked and shows elevation at 0.82 mcg/mL of FEU. The patient is somewhat more comfortable after she got Demerol in the ER. Her breathing is quite harsh especially when I walked into the room. She was snoring quite loudly. At this time, she is more comfortable. PAST MEDICAL HISTORY: Positive for previous admissions to the hospital with chest pains. She has had previous noninvasive cardiac evaluation in 2017 and 2018. The patient has hypertension. She has diabetes mellitus type 2. She has sleep apnea syndrome. She is really morbidly obese. Her body mass index is 52.7, and that falls into the category of super obese. She does have chronic arthritis of the knees. PAST SURGICAL HISTORY: She had bilateral knee replacement. She had appendectomy. She has had a cholecystectomy and tonsillectomy. Carpal tunnel surgery. SOCIAL HISTORY: She is . She lives with her daughter. She has been a smoker for a number of years. FAMILY HISTORY: Positive for heart failure. REVIEW OF SYSTEMS: The patient has been hospitalized in the recent past. She was admitted on 06/04 through 06/11 with asthma and COPD exacerbation. At that time, Dr. Yanick Guzman saw her throughout the entire admission, and essentially she was treated with BiPAP and bronchodilators, and she improved. He noted a folic acid deficiency. She was admitted again on 10/29 through 11/02. Again, Dr. Yanick Guzman took care of her. This was again due to COPD exacerbation. Of note, during those admissions, her carbon dioxide varied from a high of 51 in May to a low of 32 in October. She does have a history of depression with reportedly suicide attempt at some point in the past 5 or 6 years. HOME MEDICATIONS: Listed as follows: 1. Albuterol sulfate inhaler. 2. Amlodipine 10 mg daily. 3. Budesonide formoterol which is Symbicort 2 puffs twice a day. 4. Furosemide 40 mg daily. 5. Synthroid 150 mcg daily. 6. Losartan 25 mg daily. 7. Metformin 500 mg daily. 8. Medrol Dosepak as directed. 9. Pravastatin 80 mg at bedtime. 10. Requip or ropinirole 1 mg at bedtime. 11. Sertraline 50 mg at bedtime. 12. Flomax 0.4 mg daily. PHYSICAL EXAMINATION: Vital signs: Blood pressure 141/73, pulse 86, respirations 18, and temperature 98.2 degrees. She is awake, alert, and morbidly obese. HEENT: I cannot really elicit the jugular veins or hear any bruits in the neck. Chest: Shows diminished breath sounds diffusely without wheezing or rales. Heart: Sounds are regular and rhythmic. I do not hear gallop, murmur, or rub. Abdomen: Quite obese. No hepatomegaly that I can elicit. Extremities: Trace diffuse edema with palpable dorsalis pedis pulses 2+ bilaterally. Neurological: She follows commands. Answers appropriately. Speech is clear. Moves 4 extremities. No obvious weakness or obvious deficits. IMPRESSION: 1. Patient presenting with chest pain that sounds pleuritic by description non ischemic. Troponins are negative. EKG is nonischemic. 2. Morbid obesity. 3. Sleep apnea syndrome. 4. Diabetes mellitus type 2. 5. Hypertension. 6. Reported history of mild mitral stenosis on prior echocardiographic studies done on her. RECOMMENDATIONS: At this time because her D-dimer is elevated, I will ask for a CT of the pulmonary arteries. If the study is negative, we will do a Lexiscan myocardial perfusion stress test to exclude coronary heart disease. We will do a followup echocardiogram because of the reported history of mitral stenosis. That valvular pathology would have nothing to do with chest pain. It will be simply a follow-up on the valvular issue. The patient should be potentially referred to a bariatric surgeon for a gastric sleeve because her morbid obesity at this point is clearly highly detrimental, and she is probably going to end up coming back to the hospital in the future. We will discuss that with the primary service. cc: Dale Young MD MTDD
[2019-12-11] MEDS: ABILIFY PO SCH (10:46)
[2019-12-11] MEDS: FLOMAX PO SCH (10:46)
[2019-12-11] MEDS: ASPIRIN PO SCH (10:46)
[2019-12-11] MEDS: COREG PO SCH ×2 (10:46→22:19)
[2019-12-11] MEDS: LASIX PO SCH (10:47)
[2019-12-11] MEDS: COZAAR PO SCH (10:47)
--- NOTE | 2019-12-11 12:51 | Diag Imaging Result Doc PS360 ---
CT ANGIOGRM PULMONARY ARTERIES - 12/11/2019 INDICATION: pleuritic chest pain, elevated d-dimer TECHNIQUE: Axial CT images were obtained after administering intravenous contrast. Coronal MIP images were generated. COMPARISON: None FINDINGS: There is no pulmonary embolism. Heart and great vessels are normal. No adenopathy. Upper abdominal images are unremarkable. There is moderate multifocal scattered atelectasis in both lungs. No substantial infiltrates otherwise. Airways are clear. Bones are intact. IMPRESSION: Negative for pulmonary embolism. Moderate scattered linear atelectasis bilaterally. This exam was performed using automated exposure control, adjustment of mA or kV according to patient size, and/or use of iterative reconstruction technique Electronically signed by Lee Khan 12/11/2019 12:49 PM
[2019-12-11] MEDS ORDERED: ZOSTRIX TOP PRN (19:33)
--- NOTE | 2019-12-11 19:45 | PROGRESS NOTE ---
DATE: 12/11/2019 INTERVAL HISTORY: No acute events overnight. Ms. Perea is complaining of chest discomfort. She denies known history of coronary artery disease. She has does, however say that she has been diagnosed with congestive heart failure in the past. cc: Moshe Mills MD
--- NOTE | 2019-12-11 19:54 | PROGRESS NOTE ---
DATE: 12/11/2019 CURRENT VITALS: Temperature of 98.4 degrees, pulse rate 98, respiratory rate 16, blood pressure of 122/61. She is saturating 98% on 2 L nasal cannula. PHYSICAL EXAMINATION: She has localized tenderness over the anterior chest wall. Air entry bilaterally. No wheeze, rhonchi crackles.Heart: S1 normal. No rub or gallop. Abdomen: Obese, soft, nontender. Extremity: No lower extremity edema. Neurologic: She is alert and oriented x3. LABS: Suggestive of D-dimer of 0.8. Her troponin has been showing flat trend of 11. CT scan angiography did not have pulmonary embolism. ASSESSMENT AND PLAN: 1. Atypical chest pain. 2. History of chronic obstructive pulmonary disease and active tobacco abuse, which she claims to have quit 6 weeks ago. 3. History of chronic hypoxic respiratory failure due to chronic obstructive pulmonary disease on home 2 L nasal cannula oxygen. 4. History of [id number] diabetes mellitus. 5. Essential hypertension. 6. Depression. PLAN: I will treat her a costochondritis with topical capsaicin cream. She also has nitroglycerin paste which is not helping. I will keep her on aspirin and add pravastatin and follow up with stress test tomorrow. Plan of care discussed with her and questions have been answered. cc: Moshe Mills MD
[2019-12-11] MEDS ORDERED: ZOLOFT PO SCH (21:00)
[2019-12-11] MEDS ORDERED: PRAVACHOL PO SCH (21:00)
[2019-12-11] MEDS ORDERED: REQUIP PO SCH (21:00)
[2019-12-11] MEDS ORDERED: PHENERGAN IM PRN (23:10)
[2019-12-11] MEDS: NORCO-5 PO PRN (23:45)
--- NOTE | 2019-12-12 00:13 | ECHO REPORT ---
ORDER DATE: 12/11/2019 MEASUREMENTS: 1. Septal thickness 1.0 2. Left ventricular internal diameter in diastole 4.8 3. Posterior wall thickness 0.8 4. Left ventricular internal diameter in systole 3.4 5. Aortic root, 2.6 6. Left atrium 4.4 SUMMARY: 1. Technically difficult study due to limited acoustic window quality. 2. The aortic valve is without evidence of structural abnormality and appears to open adequately on 2-dimensional images. Peak gradient across aortic valve is 10 mmHg with a mean gradient of 6 mmHg. There is mild aortic regurgitation. Mitral valve is abnormal with moderate thickening of posterior mitral leaflet and mild thickening of anterior mitral leaflet. There is markedly reduced aortic valve leaflet separation and prominent doming of anterior mitral leaflet during diastole, consistent with rheumatic mitral valve disorder. The peak gradient across the mitral valve is 31 mmHg with a mean gradient of 12 mmHg. The calculated mitral valve area using pressure half-time method is 1.7 cm2. Moderate mitral stenosis is suggested. Elevated gradients across mitral valve likely related to prior cardiac output in this obese patient. Mitral valve area index 0.77 cm2/m2. There is very mild mitral regurgitation. Tricuspid and pulmonic valves are without evidence of structural abnormality. There is very mild tricuspid regurgitation. Estimated systolic PA pressure by Doppler is 50 mmHg, suggesting moderate pulmonary hypertension. Aortic root is normal size. 3. Normal left ventricular dimensions demonstrated. The estimated left ventricular ejection fraction appears to be at least 60%. No regional wall motion abnormality can be appreciated. Left atrium is mild to moderately enlarged. Right atrium and right ventricle are normal in size with grossly preserved right ventricular systolic function. 4. No pericardial effusion. 5. Appearance of inferior vena cava suggests normal central venous pressure. CONCLUSIONS: 1. Technically difficult study. 2. Mild aortic regurgitation. 3. 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 4. Very mild tricuspid regurgitation with moderate pulmonary hypertension by Doppler. 5. Normal left ventricular ejection fraction without wall motion abnormality evident. 6. Mild to moderate left atrial enlargement. cc: MD Cesar Florence MD
[2019-12-12] MEDS: DUONEB (A & A) INH SCH ×4 (03:15→15:41)
[2019-12-12] MEDS: NITROGLYCERIN TOP SCH ×2 (06:09→11:35)
[2019-12-12] MEDS: SYNTHROID PO SCH (06:10)
[2019-12-12] MEDS: PRILOSEC PO SCH (06:10)
[2019-12-12] MEDS: HUMULIN R SUBQ SCH ×3 (06:28→16:30)
[2019-12-12 06:54] LABS: HEMOGLOBIN A1C 5.6 % (4.8-6.0)
[2019-12-12 07:16] LABS: CHOLESTEROL 210 mg/dL (0-200); HDL 33 mg/dL (45-65); LDL 149 mg/dL; TRIGLYCERIDES 142 mg/dL (35-135); VLDL 28 mg/dL
--- NOTE | 2019-12-12 08:28 | CARDIOLOGY PROGRESS NOTE ---
DATE: 12/12/2019 CHIEF COMPLAINT: Chest pain. SUBJECTIVE: Ms. Perea is still having pleuritic chest discomfort. Her echocardiogram done yesterday shows moderate rheumatic mitral valve stenosis with mild mitral regurgitation, mild aortic regurgitation, normal LVEF. Of note, her TSH is elevated at 29.87 mcIU/mL. LDL cholesterol 149. Her hemoglobin A1c was 5.6%. Her D-dimer was slightly elevated at 0.[address] a [address] of the pulmonary arteries that showed some moderate scattered linear atelectasis bilaterally. Her proBNP was 453 pg/mL, upper normal is 226. Her C-reactive protein is 60.51 mg/L. Her free T4 was also low. OBJECTIVE: Her physical exam, vital signs: Blood pressure is 104/43, temperature is 97.8 degrees, pulse fluctuates from 77 to 100, respirations 21. General: She is awake, obese, in no distress. HEENT: Unremarkable. Chest: Diminished breath sounds. Heart: Sounds regular and rhythmic. No gallop or murmur. Abdomen: Very obese. Extremities: Showed no obvious edema. She is just massively obese with a BMI of 52.7. IMPRESSION: 1. Patient who presents with very atypical pleuritic chest pain. 2. Morbid obesity. 3. Significant hypothyroidism. 4. Hyperlipidemia. 5. Atelectasis noted on computed tomography of the chest. RECOMMENDATIONS: At this time, we will pursue a Lexiscan MPI for completion of the evaluation. Her hypothyroidism needs to be corrected. Her hyperlipidemia also needs to be corrected. I have recommended a consultation with bariatric surgeon because she really needs to lose at least 130 pounds. Further advice will be forthcoming. cc: Dale Young MD
[2019-12-12] MEDS ORDERED: LOVENOX SUBQ SCH (09:00)
[2019-12-12] MEDS ORDERED: CRESTOR PO SCH (09:00)
[2019-12-12] MEDS ORDERED: LEXISCAN ONE (11:49)
--- NOTE | 2019-12-12 14:15 | Diag Imaging Result Document ---
PROCEDURE NAME: MYOCARDIAL PERF SCAN, STR/REST - 12/12/2019 STUDY: Rest/stress Lexiscan myocardial perfusion study. INDICATION: Chest pain, coronary atherosclerosis. Morbid obesity. DESCRIPTION: The patient came into the nuclear laboratory, received rest injection of technetium 99 sestamibi 16.6 mCi. Multiple tomographic views of the cardiac structures were obtained at rest. Subsequently, the patient underwent Lexiscan infusion, 0.4 mg of Lexiscan infused, at peak infusion injected with technetium 99 sestamibi 46.9 mCi. Multiple tomographic views of the cardiac structures were obtained following completion of the protocol. SUMMARY OF THE ELECTROCARDIOGRAPHIC PORTION OF THE STUDY: Resting ECG shows sinus rhythm, rate 83 beats per minute. Resting blood pressure is 92/46. Resting ECG shows no significant abnormality. During the protocol, the heart rate increased to 102 beats per minute, blood pressure went up to 105/47. The patient's ECG showed no ischemic changes. The patient reported no chest pain, shortness of breath, or palpitations. Following completion of the infusion, the heart rate and blood pressure returned back to baseline. At some point, she described a little bit of "gas pain" that subsided spontaneously. The ECG response to infusion of Lexiscan is negative for ischemia. SUMMARY OF THE MYOCARDIAL PERFUSION PORTION OF THE STUDY: Poststress tomographic views of the left ventricle showed normal homogeneous distribution of radiotracer throughout the entire left ventricular myocardium. There is no evidence of any postexercise defect. The rest images showed normal perfusion. Polar plots revealed the same. There is no evidence of any inducible ischemia nor myocardial scar. Gated SPECT showed normal left ventricular systolic function, ejection fraction of 78% with normal ventricular volumes, no wall motion abnormality. Lung/heart ratio is elevated at 0.47. The TID is 1.28, which is somewhat elevated. SUMMARY: This study shows: 1. Unremarkable electrocardiographic response to infusion of Lexiscan. 2. Normal poststress myocardial perfusion scan. There is no scintigraphic evidence of pharmacologic-induced myocardial ischemia. 3. Normal left ventricular systolic function, ejection fraction is calculated at 78 with normal ventricular volumes, no wall motion abnormality. This study represents a low risk for ischemic events. cc: Dale Young MD
[2019-12-12] MEDS: ABILIFY PO SCH (14:56)
[2019-12-12] MEDS: FLOMAX PO SCH (14:56)
[2019-12-12] MEDS: LASIX PO SCH (14:56)
[2019-12-12] MEDS: COREG PO SCH (14:56)
[2019-12-12] MEDS: COZAAR PO SCH (14:56)
[2019-12-12] MEDS: ASPIRIN PO SCH (14:57)
[2019-12-12] MEDS: NORCO-5 PO PRN (14:57)
[2019-12-12 15:53] VITALS: BP 138/75
--- NOTE | 2019-12-12 18:48 | DISCHARGE SUMMARY ---
ADMISSION DATE: 12/11/2019 DISCHARGE DATE: 12/12/2019 DISCHARGE DISPOSITION: Home. DISCHARGE CONDITION: Hemodynamically stable. Her chest soreness has diminished. It was thought to be related to costochondritis. Her stress imaging nuclear medicine did not detect any inducible myocardial ischemia. The patient was counseled about taking a better control of her blood pressure, cholesterol, as well as thyroid function. She was also prescribed topical capsaicin cream. DISCHARGE DIAGNOSES: 1. Atypical chest pain with negative stress test. 2. Likely acute costochondritis. 3. Uncontrolled hypothyroidism. 4. Hyperlipidemia. OTHER DIAGNOSES: 1. History of chronic obstructive pulmonary disease. 2. History of obstructive sleep apnea. 3. History of chronic hypoxic respiratory failure, on home oxygen. 4. History of hypothyroidism. 5. History of depression. 6. History of chronic gastroesophageal reflux disease. 7. History of [id number] diabetes mellitus. 8. Essential hypertension. DISCHARGE MEDICATIONS: 1. Ropinirole 1 mg at nighttime. 2. Sertraline 50 mg at nighttime. 3. Aripiprazole 10 mg daily. 4. Tamsulosin 0.4 mg daily. 5. Metformin 500 mg daily. 6. Lasix 40 mg daily. 7. Symbicort 2 puffs inhaled b.i.d. 8. Carvedilol 3.125 mg every 12 hours. 9. Albuterol sulfate 0.63 mg inhaled as needed for shortness of breath. 10. Losartan 25 mg daily. 11. Rosuvastatin 40 mg daily. 12. Levothyroxine 175 mcg daily. The dose was increased from 150 to 175 considering her elevated TSH. Also, her pravastatin was changed over to rosuvastatin. 13. Capsaicin 0.75% cream 1 application b.i.d. as needed for chest wall discomfort. VITALS: At time of discharge, temperature 98.1 degrees, pulse 70, respiratory rate 22, blood pressure 138/72, saturation 96% on room air. PHYSICAL EXAMINATION: Ms. Perea at the time of discharge was not in acute distress, morbidly obese. Oral cavity is moist. Air entry bilaterally equal. No wheeze, rhonchi, or crackles. She does have some chest wall tenderness on palpation, though it has decreased from presentation. Abdomen is morbidly obese. No lower extremity edema. She was alert and oriented x3. She was using oxygen at the time of my evaluation. SIGNIFICANT LABS AT THE TIME OF DISCHARGE: WBC 11.5, hemoglobin 11.4, platelets 322,000. INR 0.8, glucose 118, cholesterol 210, HDL 33, [*]29, free T4 0.66. Microbiology, no data. IMAGING DURING HOSPITAL ADMISSION: Chest x-ray on presentation had cardiomegaly with increased pulmonary vascularity and minimal right middle lobe atelectasis. Echocardiogram was technically difficult study. Mild aortic regurgitation, moderate traumatic mitral stenosis with very mild mitral regurgitation, very mild tricuspid regurgitation with moderate pulmonary hypertension, normal left ventricular ejection fraction without wall motion abnormality, mild to moderate left atrial enlargement. Pulmonary arteriogram on December 10 was negative for pulmonary embolism. It had moderate scattered linear atelectasis. Myocardial perfusion scan on December 11 had unremarkable ECG response to infusion of Lexiscan, normal post-stress myocardial perfusion scan, no scintigraphic evidence of pharmacologically induced myocardial ischemia, normal left ventricular systolic function with ejection fraction of 78 with normal ventricular volumes, no wall motion abnormality. Electrocardiogram on presentation had sinus tachycardia by atrial enlargement, abnormal ECG. CONSULTATION DURING HOSPITAL ADMISSION: Cardiology, Dr. Young. HOSPITAL COURSE SUMMARY: Ms. Perea is a 54-year-old, lady with past medical history of COPD, obstructive sleep apnea and chronic hypoxic respiratory failure, and also had history of essential hypertension, who came in with chief complaint of left-sided chest pain for about 3 days' duration. It was sharp, intermittent, about 8 out of 10 in intensity and radiating towards her back. She also had associated subjective feelings of palpitation or shortness of breath. In the emergency room, she was found to have a temperature of 99.2 degrees, pulse of 99, respiratory rate of 21, blood pressure of 112/89, and she was saturating 95% on room air. Her initial labs had a troponin of 11, an EKG did not have any ST elevation. Considering her risk factors, we have decided to discharge her and Cardiology was consulted. After cardiology evaluation patient underwent Lexiscan, which did not have any inducible myocardial ischemia. On examination patient also had localized chest wall tenderness. It was thought that her chest pain was coming from acute costochondritis and she was started on topical capsaicin cream which helped with her chest pain. She was also noticed to have hyperlipidemia as well as elevated TSH in the setting of hypothyroidism, so her cholesterol medications were changed to rosuvastatin and her levothyroxine dose was increased. At the time of discharge she was provided detailed discharge instructions about following up with her regular physician. Plan of care was discussed with her. She was allowed to ask questions. All of her questions were answered. 25 minutes were spent discharging this patient. cc: Moshe Mills MD
[2019-12-13] MEDS ORDERED: SYNTHROID PO SCH (06:00)
== END 2019-12-12 17:39 | disposition home or self-care (01) ==
LOC: 4N 21:23 → ED 21:23 → INTOOBSV 12-11 03:40 → SUATTDRO 12-11 03:40 → OBSVTOIN 12-11 03:40 → 4N 12-12 08:01
PROVIDERS: ATTEND Internal Medicine